=== PATIENT | male | born 1955 | race Caucasian/White ===

== ENCOUNTER 2023-04-26 12:01 | Inpatient (IN) | payer MEDICAID, SELFPAY ==
--- NOTE | ~2023-04-26 | CT_ITS ---
EXAMINATION: CT HEAD WITHOUT CONTRAST CLINICAL INFORMATION: Head injury COMPARISON: None available. TECHNIQUE: Contiguous axial imaging was performed from the skull base to vertex without intravenous administration of contrast. This CT examination was performed using dose optimization techniques as appropriate, variously including the following: *Automated exposure control *Adjustment of mA and/or kV according to patient size (this includes techniques or standardized protocols for targeted exams where dose is matched to indication/reason for exam; i.e. extremities or head) *Use of iterative reconstruction technique DLP: 865 mGy-cm FINDINGS: There is no evidence of an extra-axial collection. There is no evidence of intra-axial or extra-axial hemorrhage. The ventricles and extra-axial CSF spaces are prominent suggestive of generalized atrophy. There is nonspecific periventricular white matter disease. No mass, mass effect or infarct. No skull fracture. Paranasal sinuses are clear. CT/CT head/brain wo IV con IMPRESSION: No acute findings.
--- NOTE | ~2023-04-26 | XR_ITS ---
EXAMINATION: XR CHEST CLINICAL INFORMATION: Hypoxia COMPARISON: Previous day TECHNIQUE: Frontal view of the chest was obtained. FINDINGS: Diffuse bronchial thickening. Streaky opacity at left lung base increased from prior, but with improved aeration of the right midlung from prior. Favor subsegmental atelectasis. No pleural effusion or pneumothorax. Heart size and pulmonary vascularity within normal limits. No acute osseous abnormalities. XR/XR chest 1V IMPRESSION: * Diffuse bronchial thickening is seen bronchitis and/or asthma * Improved aeration of the right midlung. * Increased streaky opacity at left lung base could represent subsegmental atelectasis or infiltrate.
--- NOTE | ~2023-04-26 | CT_ITS ---
EXAMINATION: CT CERVICAL SPINE WITHOUT CONTRAST CLINICAL INFORMATION: Neck pain. Fall. COMPARISON: None available. TECHNIQUE: Axial images through the cervical spine without IV contrast. Sagittal and coronal reconstructions workstation This CT examination was performed using dose optimization techniques as appropriate, variously including the following: *Automated exposure control *Adjustment of mA and/or kV according to patient size (this includes techniques or standardized protocols for targeted exams where dose is matched to indication/reason for exam; i.e. extremities or head) *Use of iterative reconstruction technique DLP: 4 5 2 mGy-cm FINDINGS: Bone alignment is normal. No fracture or dislocation. Multilevel degenerative spondylosis and degenerative disc disease greatest at C5-C6 and C6-C7. There are degenerative changes of the dens articulation. Prevertebral soft tissues are normal. Scarring at the right lung apex. CT/CT cervical spine wo IV con IMPRESSION: Degenerative changes. No fracture or dislocation. Fleischner guidelines were followed.
--- NOTE | ~2023-04-26 | XR_ITS ---
EXAMINATION: XR CHEST CLINICAL INFORMATION: Hypoxia. COMPARISON: None available. TECHNIQUE: Frontal view of the chest was obtained. FINDINGS: The cardiomediastinal silhouette is grossly within normal limits. There is bilateral lower lung field increased markings. There is pleural thickening and/or scarring right midlung field. Lungs are otherwise clear. There are no significant pleural effusions. The bony structures and soft tissues are unremarkable. XR/XR chest 1V IMPRESSION: Bilateral lower lung field increased markings suspected to be chronic. Right midlung field pleural thickening and/or scarring. No other significant abnormality seen.
[2023-04-26 12:30] VITALS: BP 111/61; BP 114/72; PULSE 89; PULSE 93; RESP 16; TEMP 36.9; O2SAT 92; O2SAT 94; BMI 28.3
--- NOTE | 2023-04-26 12:51 | ECG_ITS ---
Test Reason : SYNCOPE Blood Pressure : / mmHG Vent. Rate : 088 BPM Atrial Rate : 088 BPM P-R Int : 162 ms QRS Dur : 140 ms QT Int : 382 ms P-R-T Axes : 025 -35 011 degrees QTc Int : 462 ms Normal sinus rhythm Left axis deviation Right bundle branch block Abnormal ECG No previous ECGs available Referred By: Daniele Genao Electronically Signed By:MAGAN HAYES MD
--- NOTE | 2023-04-26 12:52 | ED_ITS ---
HPI - Altered Mental Status General Chief Complaint: Altered Mental Status Stated Complaint: FALLS,AMS, FROM [facility] PER EMS Time Seen by Provider: 04/26/23 12:33 Source: patient Mode of arrival: EMS Limitations: altered mental status History of Present Illness HPI narrative: 67-year-old male history of diabetes, COPD, hypertension, schizoaffective disorder who presents emergency department for evaluation of unwitnessed fall. The patient is not a reliable informant. The following information was obtained from the transfer form: ? Increased confusion, 2 falls, altered mental status ?. Related Data Allergies Allergy/AdvReac Type Severity Reaction Status Date / Time No Known Allergies Allergy Verified 04/26/23 12:29 Review of Systems 2 Review of Systems: Yes Unobtainable due to mental status PMFSH Social History Social History Smoked in Last 30 Days: No Advance Directives: No Physical Exam ED Vital Signs: Vital Signs - 24 hr 04/26/23 12:30 04/26/23 14:08 Temperature 98.4 F 98.0 F Pulse Rate 89 86 Respiratory Rate 16 16 Blood Pressure 111/61 101/63 Pulse Oximetry 92 95 Oxygen Delivery Method Room Air Room Air BMI result Body Mass Index 28.3 Vital signs were normal Exam General: Awake, alert in no distress Head: Normocephalic, atraumatic EENT: PERRL, Lids normal, sclera normal, conjunctiva normal, nose normal , ears normal, throat without erythema or exudates Neck: Supple, no adenopathy, no trachea midline or C-spine tenderness Lung: breath sounds symmetric, no wheezing, rales or rhonchi Chest: symmetric movement, nontender Heart: regular rate and rhythm, normal S1, S2 no murmurs or rubs Abdomen: soft, non-tender, nondistended, normal bowel sounds Back: no vertebral tenderness, no CVAT Extremities: no deformities, moves all extremities symmetrically Skin: no rashes, no lesion, normal color and warmth Neuro: Awake, alert, oriented , normal speech, cranial nerves intact, moves all extremities symmetrically Psych: Pleasant, cooperative Medical Decision Making Medical Decision Making MDM Narrative: 67-year-old male history of diabetes, COPD, hypertension, schizoaffective disorder who presents emergency department for evaluation of fall x2, increased confusion above baseline. Vital signs were unremarkable. Physical examination was unremarkable. Following evaluation was ordered: CBC, CMP, CK, PT/INR, PTT, urinalysis, COVID- 19, influenza, RSV, troponin, lactic acid, blood cultures x2, urinalysis 16:57 My interpretation patient's laboratory evaluation is as follows: WBC elevated 16,200 with 82 neutrophils. Elevated BUN of 19.4. Elevated CK 3609. Troponin was below detectable limits. Urinalysis was positive for blood, nitrates and leukocyte esterase. Microscopic revealed greater than 20 RBCs, greater than 50 WBCs, 10-20 squamous cells, 1+ bacteria-this is not a clean-catch specimen however I am concerned the patient may have a UTI which may explain his symptoms. COVID-19, influenza and RSV were negative. CT scan of the head and cervical spine were unremarkable. Patient was treated with normal saline IV x1 L and lactated Ringer's IV x1 L Patient was ordered to get ceftriaxone 1 g IV for urinary tract infection Differential Diagnosis Differential Diagnoses: The differential diagnosis associated with the presentation includes 16:57 Differential diagnosis includes was not limited to skull fracture, intracranial bleed, stroke, urinary tract infection, electrolyte abnormality, rhabdomyolysis, anemia Admission/Observation Consideration of admission/observation: Escalation of care including admission/observation considered Consult Healthcare Provider Management of the patient was discussed with: Hospitalist Lab Data MDM Lab Attestation statement: I reviewed the patient's lab results. 04/26/23 13:46 04/26/23 13:46 Labs: Lab Results 04/26/23 04/26/23 Range/Units 13:46 14:43 WBC 16.2 H (4.8-10.8) X10*3/uL RBC 4.52 L (4.60-5.80) X10*6/uL Hgb 12.4 L (14.0-18.0) g/dl Hct 37.2 L (42.0-52.0) % MCV 82.3 (80.0-98.0) fL MCH 27.4 (27.0-33.0) pg MCHC 33.3 (31.0-36.0) g/dl RDW 16.2 H (11.0-16.0) % Plt Count 187 (160-400) X10*3/uL MPV 9.5 (9.4-12.4) fL Immature Gran % (Auto) 0.9 H (0.0-0.4) % Neut % (Auto) 82.4 H (45-73) % Lymph % (Auto) 6.2 L (20-40) % Chambers % (Auto) 10.2 (2-11) % Eos % (Auto) 0.1 (0-4) % Baso % (Auto) 0.2 (0-2) % Lymph # (Auto) 1.0 L (1.2-4.9) X10*3/uL Chambers # (Auto) 1.7 H (0.1-1.2) X10*3/uL Eos # (Auto) 0.0 (0.0-0.4) X10*3/uL Baso # (Auto) 0.0 (0.0-0.2) X10*3/uL Abs Immat Gran (auto) 0.15 H (0.00-0.03) X10*3/uL Absolute Neuts (auto) 13.3 H (2.0-8.3) x10*3/uL Absolute Nucleated RBC 0.000 (0.0-0.012) X10*3/uL Nucleated RBC % (auto) 0.0 (0.0-0.2) /100WBC Smear Tech's Comments VERIFIED PT 13.6 H (11.1-13.3) SEC INR 1.1 (0.9-1.1) APTT 27.6 (26.0-36.4) SEC Sodium 137 (135-145) mmol/L Potassium 3.8 (3.3-5.1) mmol/L Chloride 102 (96-108) mmol/L Carbon Dioxide 26 (22-29) mmol/L Anion Gap 13 (12-20) BUN 19 H (9-16) mg/dL Creatinine 1.08 (0.5-1.4) mg/dL Estim Creat Clear Calc 79.2 Estimated GFR > 60 Random Glucose 112 (60-115) mg/dL Calcium 8.7 (8.4-10.2) mg/dL Total Bilirubin 0.7 (0.0-1.0) mg/dL AST 59 H (5-37) U/L ALT 20 (0-40) U/L Alkaline Phosphatase 59 (39-117) U/L Total Creatine Kinase 3609 H (38-174) U/L Troponin I High Sens < 2.7 (<3.5-35.0) ng/L Total Protein 6.1 L (6.5-8.0) g/dL Albumin 3.4 L (3.5-5.0) g/dL Urine Color Dark Yellow Urine Appearance Cloudy Urine pH 5.5 (5.0-9.0) Ur Specific Wilkinson >= 1.030 H (1.005-1.025) Urine Protein 100 (2+) H (Neg-Trace) mg/dL Urine Glucose (UA) Negative (Negative) mg/dL Urine Ketones 15 (Negative) mg/dL Urine Blood Large (3+) H (Negative) Urine Nitrite Positive H (Negative) Ur Leukocyte Esterase Moderate (2+) H (Negative) Urine RBC >20 H (0-2) /HPF Urine WBC >50 H (0-5) /HPF Urine WBC Clumps Present Ur Squamous Epith Cells 11-20 (0-2) /HPF Urine Bacteria 1+ (None Seen) Hyaline Casts 3-5 (0-2) /LPF Influenza Type A (PCR) NEGATIVE (Negative) Influenza Type B (PCR) NEGATIVE (Negative) RSV RNA Qual (PCR) NEGATIVE (Negative) SARS-CoV-2 RNA (RT-PCR) NEGATIVE (Negative) Independent Interpretation I performed an independent interpretation of an: EKG Interpretation: My interpretation patient's 12 EKG done at 12:58 hours is as follows: Normal sinus rhythm rate of 88, normal FL interval, prolonged QRS duration of 140 milliseconds, normal QTC interval, right bundle-branch block, no ST segment elevation, no ST segment depression, no significant T-wave abnormalities Radiology Impression Discussion of test interpretation with radiology: I have reviewed the radiologist's reading. Radiologist Impression: CT head/brain wo IV con IMPRESSION: No acute findings. Dictated By: Mary Quach MD CT cervical spine wo IV con IMPRESSION: Degenerative changes. No fracture or dislocation. Fleischner guidelines were followed. Dictated By: Mary Quach MD External Record Review External record reviewed: Outpatient record Chronic Conditions Patient?s care impacted by: Diabetes Discharge Plan Discharge Clinical Impression: Multiple falls Rhabdomyolysis Qualifiers: Rhabdomyolysis type: traumatic Encounter type: initial encounter Qualified Code(s): T79.6XXA - Traumatic ischemia of muscle, initial encounter Urinary tract infection Qualifiers: Urinary tract infection type: site unspecified Hematuria presence: with hematuria Qualified Code(s): N39.0 - Urinary tract infection, site not specified Patient Disposition: Admitted As Inpatient
[2023-04-26 13:52] LABS: Basophils Percent Auto 0.2 % (0-2); Eosinophils Percent Auto 0.1 % (0-4); Hematocrit 37.2 % (42.0-52.0); Hemoglobin 12.4 g/dl (14.0-18.0); Imm Gran Abs Auto 0.15 X10*3/uL (0.00-0.03); Imm Gran Pct Auto 0.9 % (0.0-0.4); Lymphocytes Percent Auto 6.2 % (20-40); MANUAL DIFF FLAG SCAN; Mean Corpuscular HGB Conc 33.3 g/dl (31.0-36.0); Mean Corpuscular Hemoglobin 27.4 pg (27.0-33.0); Mean Corpuscular Volume 82.3 fL (80.0-98.0); Mean Platelet Volume 9.5 fL (9.4-12.4); Monocytes Absolute Auto 1.7 X10*3/uL (0.1-1.2); Monocytes Percent Auto 10.2 % (2-11); Neutrophils Absolute Auto 13.3 x10*3/uL (2.0-8.3); Neutrophils Percent Auto 82.4 % (45-73); Platelet Count 187 X10*3/uL (160-400); Red Blood Count 4.52 X10*6/uL (4.60-5.80); Red Cell Distribution Width 16.2 % (11.0-16.0); SCAN SMEAR FLAG 1; White Blood Count 16.2 X10*3/uL (4.8-10.8)
[2023-04-26 13:57] LABS: INTERNATIONAL NORM RATIO 1.1 (0.9-1.1); Prothrombin Time 13.6 SEC (11.1-13.3)
[2023-04-26 13:59] LABS: Partial Thromboplastin Time 27.6 SEC (26.0-36.4)
[2023-04-26 14:07] LABS: Alanine Aminotransferase 20 U/L (0-40); Albumin Level 3.4 g/dL (3.5-5.0); Alkaline Phosphatase 59 U/L (39-117); Anion Gap 13 (12-20); Aspartate Amino Transferase 59 U/L (5-37); Bilirubin Total 0.7 mg/dL (0.0-1.0); Blood Urea Nitrogen 19 mg/dL (9-16); Calcium 8.7 mg/dL (8.4-10.2); Carbon Dioxide 26 mmol/L (22-29); Chloride 102 mmol/L (96-108); Creatinine Clr Calc Pharmacy 79.2; Estimated Glomerular Filt Rate > 60; Glucose Random 112 mg/dL (60-115); Potassium 3.8 mmol/L (3.3-5.1); Sodium 137 mmol/L (135-145); Total Protein 6.1 g/dL (6.5-8.0)
[2023-04-26 14:08] VITALS: BP 101/63; PULSE 86; RESP 16; TEMP 36.7; O2SAT 95
[2023-04-26 14:15] LABS: Troponin-I High Sensitivity < 2.7 ng/L (<3.5-35.0)
[2023-04-26 14:22] LABS: SLIDE REVIEW VERIFIED
[2023-04-26 14:31] LABS: Influenza A PCR NEGATIVE (Negative); Influenza B PCR NEGATIVE (Negative); Resp Syncy Virus RNA Qual PCR NEGATIVE (Negative); SARS COV2 PCR INHOUSE NEGATIVE (Negative)
--- NOTE | 2023-04-26 14:49 | MHC.EDTECH ---
T/w asked Pt x2 if I could get him more comfortable/off EMS linen and situated into a hospital gown, but Pt refused at this time. RN and [facility] tech aware. Pt used urinal and urine specimen sent down to lab.
[2023-04-26 14:53] LABS: Appearance Urine Cloudy; Color Urine Dark Yellow; Glucose Urine UA Negative (Negative); Leukocyte Esterase Urine Moderate (2+) (Negative); Nitrite Urine Positive (Negative); PH 5.5 (5.0-9.0); Specific Gravity - Urine >= 1.030 (1.005-1.025); UMIC TRIGGER UACC YES; Urine Blood Large (3+) (Negative); Urine Ketones 15 mg/dL (Negative); Urine Protein 100 (2+) mg/dL (Neg-Trace)
[2023-04-26 15:07] LABS: Bacteria Urine 1+ (None Seen); RBC Urine >20 /HPF (0-2); UACC Culture Trigger YES; WBC Clumps Urine Present; WBC Urine >50 /HPF (0-5)
[2023-04-26] MEDS: Lactated Ringers 1,000 ML 999 ML IV (16:45)
[2023-04-26] MEDS: cefTRIAXone sodium 1 GM in 0.9 % Sodium Chloride 50 ML IV (17:21)
[2023-04-26 17:44] LABS: Lactic Acid 2.5 mmol/L (0.5-2.0)
--- NOTE | 2023-04-26 18:05 | P.HPHOSP_ITS ---
History of Present Illness Date of Service: 04/26/23 Chief Complaint: fall 67M PMH schizoaffective disorder, copd, DM, htn, presented from [facility] after fall. patient is poor historian and does not remember event, per EMS was transfered for increased confusion, fall times 2, and aleterd mental status. in ED, UA grossly positive, elevated cpk to 3000, trauma work up unremarkable. Review of Systems 2 Review of Systems: Yes all other systems are reviewed and are negative [facility] Social History Smoked in Last 30 Days: No Advance Directives: No Meds Allergies Allergy/AdvReac Type Severity Reaction Status Date / Time No Known Allergies Allergy Verified 04/26/23 12:29 Physical Exam 2 Vital Signs and Narrative: Vital Signs: Last Vital Signs Temp 98.0 F 04/26/23 14:08 Pulse 86 04/26/23 14:08 Resp 16 04/26/23 14:08 BP 101/63 04/26/23 14:08 Pulse Ox 95 04/26/23 14:08 O2 Del Method Room Air 04/26/23 14:08 BMI result Body Mass Index 28.3 General: AO X 1, no acute distress Resp: CTA bilateral, no accessory muscles used CVS: S1,S2,RRR GI: soft, non tender, non distended Neuro: motor grossly intact, alert Results Labs 04/26/23 13:46 04/26/23 13:46 Labs: Laboratory Results - last 24 hr 04/26/23 04/26/23 04/26/23 13:46 14:43 16:59 MCV 82.3 MCH 27.4 MCHC 33.3 RDW 16.2 H Plt Count 187 MPV 9.5 Immature Gran % (Auto) 0.9 H Neut % (Auto) 82.4 H Lymph % (Auto) 6.2 L [place] % (Auto) 10.2 Eos % (Auto) 0.1 Baso % (Auto) 0.2 Lymph # (Auto) 1.0 L [place] # (Auto) 1.7 H Eos # (Auto) 0.0 Baso # (Auto) 0.0 Abs Immat Gran (auto) 0.15 H Absolute Neuts (auto) 13.3 H Absolute Nucleated RBC 0.000 Nucleated RBC % (auto) 0.0 Smear Tech's Comments VERIFIED PT 13.6 H INR 1.1 APTT 27.6 Anion Gap 13 Estim Creat Clear Calc 79.2 Estimated GFR > 60 Random Glucose 112 Lactic Acid 2.5 H* Calcium 8.7 Total Bilirubin 0.7 AST 59 H ALT 20 Alkaline Phosphatase 59 Total Creatine Kinase 3609 H Total Protein 6.1 L Albumin 3.4 L Urine Color Dark Yellow Urine Appearance Cloudy Urine pH 5.5 Ur Specific Gilchrist >= 1.030 H Urine Protein 100 (2+) H Urine Glucose (UA) Negative Urine Ketones 15 Urine Blood Large (3+) H Urine Nitrite Positive H Ur Leukocyte Esterase Moderate (2+) H Urine RBC >20 H Urine WBC >50 H Urine WBC Clumps Present Ur Squamous Epith Cells 11-20 Urine Bacteria 1+ Hyaline Casts 3-5 Influenza Type A (PCR) NEGATIVE Influenza Type B (PCR) NEGATIVE RSV RNA Qual (PCR) NEGATIVE SARS-CoV-2 RNA (RT-PCR) NEGATIVE Imaging Radiologist's Impressions: Impressions Cervical Spine CT 04/26/23 13:34 IMPRESSION: Degenerative changes. No fracture or dislocation. Fleischner guidelines were followed. Head CT 04/26/23 13:34 IMPRESSION: No acute findings. Assessment and Plan (1) Urinary tract infection: Qualifiers: Hematuria presence: with hematuria Urinary tract infection type: site unspecified Qualified Code(s): N39.0 - Urinary tract infection, site not specified; R31.9 - Hematuria, unspecified Status: Acute Plan 67M PMH schizoaffective disorder, copd, DM, htn, presented from [facility] after fall, ams multiple falls, ams secondary to acute metabolic encephalopathy due to UTI rocephin, pt eval, follow up cultures mild rhabdomyolosis ivf, monitor cpk schizoaffective disorder, htn, copd patient not sent with medlist, awaiting fax from [facility] to complete [facility]rec copd stable mood currently stable bp stable DM insulin sliding scale, monitro pocs dvt prophylaxis - lovenox full code patient with significant elevation in cpk/rhabdo, will likely need atleast 2 midnights inpatient of aggressive iv hydration to treat. Quality Stroke Does the patient have a stroke diagnosis?: No VTE Prior VTE?: No VTE Risk Level:: Medical - moderate - high VTE Device Contraindication: Treatment Not Indicated VTE Drug Contraindication: N/A - Med Ordered
--- NOTE | 2023-04-26 18:42 | PC.NURSE ---
CALLED [facility] [place] AGAIN TO OBTAIN MED LIST, THEY WILL BE FAXING IT OVER.
[2023-04-26 19:10] LABS: Reflex Lactate? Lactic Acid Added
--- NOTE | 2023-04-26 19:14 | PHA.MEDREC ---
Pharmacy Consult ? Medication Reconciliation Pharmacy has completed the medication reconciliation. Received list from [facility]. Shruthi De Santiago, DedeD
[2023-04-26] MEDS: 0.9 % Sodium Chloride 1,000 ML 100 ML IVCONT (19:29)
[2023-04-26 19:43] LABS: ~Lactic Acid-LAB USE ONLY 1.3 mmol/L (0.5-2.0)
[2023-04-26 20:05] VITALS: BP 110/55; PULSE 90; RESP 20; TEMP 37.8; O2SAT 96
--- NOTE | 2023-04-26 20:06 | MHC.EDTECH ---
This tech assumed care of patient at 1900,hourly rounds and vitals completed, temp orally is 100.00 Arian RN aware BP is 110/55, Upon entry to room patient was trying to get OOB ,was able to redirect patient. Belonging list completed and copy placed in chart
--- NOTE | 2023-04-26 21:09 | MHC.EDTECH ---
Blood sugar taken and is 110 Arian RN aware
[2023-04-26 21:10] LABS: Glucose, Whole Blood 110 mg/dL (60-115)
[2023-04-26 22:22] VITALS: BP 96/57; PULSE 70; RESP 18; TEMP 36.8; O2SAT 97
[2023-04-26 22:26] VITALS: BP 98/59; PULSE 71; RESP 18; TEMP 36.8
--- NOTE | 2023-04-26 22:26 | MHC.EDTECH ---
Hour;y rpounds and vitals completed, patients BP is low 96/57 on the LT arm and 98/59 on the RT, Arian RN was made aware. Patient urinated 200MLS in urinal, Patient is being placed on bedpan at this time
--- NOTE | 2023-04-26 22:48 | MHC.EDTECH ---
Patient had a small amount of liquid tabor stool,patient was cleaned and repositioned in bed,rectal temp taken and is 98.3.
[2023-04-27] VITALS (10 sets, daily range): BP systolic 100–129; BP diastolic 51–70; PULSE 80–98; RESP 16–20; TEMP 36.4–37.9; O2SAT 93–96; BMI 28.6
[2023-04-27] MEDS: Acetaminophen 325 MG TABLET 650 MG PO (03:16)
--- NOTE | 2023-04-27 05:33 | PC.NURSE ---
0415 IVF delayed. previous fluids still infusing. pt resting comfortably with eyes closed, breathing even and unlabored. no apparent distress noted at this time. call baker w/in reach
[2023-04-27 05:55] LABS: Hematocrit 34.4 % (42.0-52.0); Hemoglobin 11.4 g/dl (14.0-18.0); Mean Corpuscular HGB Conc 33.1 g/dl (31.0-36.0); Mean Corpuscular Hemoglobin 27.1 pg (27.0-33.0); Mean Corpuscular Volume 81.7 fL (80.0-98.0); Mean Platelet Volume 9.5 fL (9.4-12.4); Platelet Count 171 X10*3/uL (160-400); Red Blood Count 4.21 X10*6/uL (4.60-5.80); Red Cell Distribution Width 16.4 % (11.0-16.0); White Blood Count 10.2 X10*3/uL (4.8-10.8)
[2023-04-27 06:12] LABS: Anion Gap 11 (12-20); Blood Urea Nitrogen 16 mg/dL (9-16); Calcium 7.8 mg/dL (8.4-10.2); Carbon Dioxide 24 mmol/L (22-29); Chloride 107 mmol/L (96-108); Creatinine Clr Calc Pharmacy 111.1; Estimated Glomerular Filt Rate > 60; Glucose Fasting 95 mg/dL (60-99); Potassium 3.4 mmol/L (3.3-5.1); Sodium 139 mmol/L (135-145)
[2023-04-27 07:24] LABS: Glucose, Whole Blood 93 mg/dL (60-115)
[2023-04-27] MEDS: Sucralfate 1 GM TABLET PO ×2 (08:17→18:15)
[2023-04-27] MEDS: metFORMIN HCl 1,000 MG TABLET 1000 MG PO ×2 (08:17→18:15)
[2023-04-27] MEDS: buPROPion HCl XL 300 MG TAB.ER.24H PO (08:17)
[2023-04-27] MEDS: cloZAPine 25 MG TABLET PO (08:17)
[2023-04-27] MEDS: Omeprazole 20 MG CAPSULE.DR PO (08:17)
[2023-04-27] MEDS: Enoxaparin Sodium 40 MG/0.4 ML SYRINGE SUBCUT (08:17)
--- NOTE | 2023-04-27 08:20 | PC.NURSE ---
Alert with confusion. When asked where he lives patient states he is from [facility] and there is only one place he is going. When asked where patient states [place]. ate well for breakfast. oob to use bedside commode x 1 loose stool noted
[2023-04-27] MEDS: 0.9 % Sodium Chloride 1,000 ML 100 ML IVCONT ×2 (08:23→20:47)
--- NOTE | 2023-04-27 08:59 | P.PNIM_ITS ---
Subjective Subjective Date of Service: 04/27/23 Interval History: no copmlaints Physical Exam 2 Vital Signs: Vital Signs: Last Vital Signs Temp 98 F 04/27/23 08:22 Pulse 92 04/27/23 08:13 Resp 18 04/27/23 08:22 BP 117/54 L 04/27/23 08:22 Pulse Ox 96 04/27/23 08:22 O2 Del Method Room Air 04/27/23 08:22 BMI result Body Mass Index 28.3 General: Alert, confusion, no acute distress Resp: CTA bilateral, no accessory muscles used CVS: S1,S2,RRR GI: soft, non tender, non distended Neuro: motor grossly intact, alert Objective Data Active Medications Acetaminophen (Acetaminophen 325 Mg Tablet) 650 mg PO Q4H PRN PRN Reason: Fever Last Admin: 04/27/23 03:16 Dose: 650 mg Documented By: JORGE Atorvastatin Calcium (Atorvastatin Calcium 80 Mg Tablet) 80 mg PO BEDTIME [facility] Bupropion HCl (Bupropion Hcl Xl 300 Mg Tab.Er.24h) 300 mg PO DAILY [facility] Last Admin: 04/27/23 08:17 Dose: 300 mg Documented By: SHAYLA Clozapine (Clozapine 25 Mg Tablet) 25 mg PO DAILY [facility] Last Admin: 04/27/23 08:17 Dose: 25 mg Documented By: SHAYLA Clozapine (Clozapine 25 Mg Tablet) 50 mg PO BEDTIME [facility] Clozapine (Clozapine 100 Mg Tablet) 200 mg PO BEDTIME [facility] Dextrose (Dextrose 50 % 25 Gm/50 Ml Syringe) 25 gm IVPUSH Q15M PRN; Protocol PRN Reason: per Hypoglycemia Standing Ord. Divalproex Sodium (Divalproex Sodium 500 Mg Tablet.Dr) 1,500 mg PO BEDTIME [facility] Enoxaparin Sodium (Enoxaparin Sodium 40 Mg/0.4 Ml Syringe) 40 mg SUBCUT Q24H [facility] Last Admin: 04/27/23 08:17 Dose: 40 mg Documented By: SHAYLA Escitalopram Oxalate (Escitalopram Oxalate 10 Mg Tablet) 10 mg PO BEDTIME [facility] Glucose (Glucose Gel 15 Gm Gel..Gram.) 15 gm PO Q15M PRN; Protocol PRN Reason: per Hypoglycemia Standing Ord. Ceftriaxone Sodium 1 gm/ (Sodium Chloride) 50 mls @ 100 mls/hr IV Q24H [facility] Sodium Chloride (Ns) 1,000 mls @ 100 mls/hr IVCONT .Q10H [facility] Last Admin: 04/27/23 08:23 Dose: 100 mls/hr Documented By: SHAYLA Insulin Human Lispro (Insulin Lispro 100 Unit/Ml 3 Ml Vial) 0 unit SUBCUT QIDACHS [facility]; Protocol Last Admin: 04/27/23 07:41 Dose: Not Given Documented By: SHAYLA Non-Admin Reason: No Insulin Coverage Metformin HCl (Metformin Hcl 1,000 Mg Tablet) 1,000 mg PO BID@0900,1700 [facility] Last Admin: 04/27/23 08:17 Dose: 1,000 mg Documented By: SHAYLA Omeprazole (Omeprazole 20 Mg Capsule.Dr) 20 mg PO DAILY@0630 [facility] Last Admin: 04/27/23 08:17 Dose: 20 mg Documented By: SHAYLA Polyethylene Glycol (Polyethylene Glycol 3350 17 Gm Powd.Pack) 17 gm PO DAILY PRN PRN Reason: Constipation Sodium Chloride (0.9 % Sodium Chloride Flush 3 Ml Syringe) 3 ml IVFLUSH QSHIFT [facility] Last Admin: 04/27/23 07:40 Dose: Not Given Documented By: SHAYLA Non-Admin Reason: IV Running Sucralfate (Sucralfate 1 Gm Tablet) 1 gm PO BID@0900,1700 [facility] Last Admin: 04/27/23 08:17 Dose: 1 gm Documented By: SHAYAL Labs 04/27/23 05:40 04/27/23 05:44 Labs: Laboratory Results - last 24 hr 04/26/23 04/26/23 04/26/23 13:46 14:43 16:59 MCV 82.3 MCH 27.4 MCHC 33.3 RDW 16.2 H Plt Count 187 MPV 9.5 Immature Gran % (Auto) 0.9 H Neut % (Auto) 82.4 H Lymph % (Auto) 6.2 L [place] % (Auto) 10.2 Eos % (Auto) 0.1 Baso % (Auto) 0.2 Lymph # (Auto) 1.0 L [place] # (Auto) 1.7 H Eos # (Auto) 0.0 Baso # (Auto) 0.0 Abs Immat Gran (auto) 0.15 H Absolute Neuts (auto) 13.3 H Absolute Nucleated RBC 0.000 Nucleated RBC % (auto) 0.0 Smear Tech's Comments VERIFIED PT 13.6 H INR 1.1 APTT 27.6 Anion Gap 13 Estim Creat Clear Calc 79.2 Estimated GFR > 60 POC Glucose Random Glucose 112 Fasting Glucose Lactic Acid 2.5 H* Lactic Acid F/U @ 2Hr Calcium 8.7 Total Bilirubin 0.7 AST 59 H ALT 20 Alkaline Phosphatase 59 Total Creatine Kinase 3609 H Total Protein 6.1 L Albumin 3.4 L Urine Color Dark Yellow Urine Appearance Cloudy Urine pH 5.5 Ur Specific [place] >= 1.030 H Urine Protein 100 (2+) H Urine Glucose (UA) Negative Urine Ketones 15 Urine Blood Large (3+) H Urine Nitrite Positive H Ur Leukocyte Esterase Moderate (2+) H Urine RBC >20 H Urine WBC >50 H Urine WBC Clumps Present Ur Squamous Epith Cells 11-20 Urine Bacteria 1+ Hyaline Casts 3-5 Influenza Type A (PCR) NEGATIVE Influenza Type B (PCR) NEGATIVE RSV RNA Qual (PCR) NEGATIVE SARS-CoV-2 RNA (RT-PCR) NEGATIVE 04/26/23 04/26/23 04/27/23 19:29 21:06 05:40 MCV 81.7 MCH 27.1 MCHC 33.1 RDW 16.4 H Plt Count 171 MPV 9.5 Immature Gran % (Auto) Neut % (Auto) Lymph % (Auto) [place] % (Auto) Eos % (Auto) Baso % (Auto) Lymph # (Auto) [place] # (Auto) Eos # (Auto) Baso # (Auto) Abs Immat Gran (auto) Absolute Neuts (auto) Absolute Nucleated RBC 0.000 Nucleated RBC % (auto) 0.0 Smear Tech's Comments PT INR APTT Anion Gap Estim Creat Clear Calc Estimated GFR POC Glucose 110 Random Glucose Fasting Glucose Lactic Acid Lactic Acid F/U @ 2Hr 1.3 Calcium Total Bilirubin AST ALT Alkaline Phosphatase Total Creatine Kinase Total Protein Albumin Urine Color Urine Appearance Urine pH Ur Specific [place] Urine Protein Urine Glucose (UA) Urine Ketones Urine Blood Urine Nitrite Ur Leukocyte Esterase Urine RBC Urine WBC Urine WBC Clumps Ur Squamous Epith Cells Urine Bacteria Hyaline Casts Influenza Type A (PCR) Influenza Type B (PCR) RSV RNA Qual (PCR) SARS-CoV-2 RNA (RT-PCR) 04/27/23 04/27/23 05:44 07:09 MCV MCH MCHC RDW Plt Count MPV Immature Gran % (Auto) Neut % (Auto) Lymph % (Auto) [place] % (Auto) Eos % (Auto) Baso % (Auto) Lymph # (Auto) [place] # (Auto) Eos # (Auto) Baso # (Auto) Abs Immat Gran (auto) Absolute Neuts (auto) Absolute Nucleated RBC Nucleated RBC % (auto) Smear Tech's Comments PT INR APTT Anion Gap 11 L Estim Creat Clear Calc 111.1 Estimated GFR > 60 POC Glucose 93 Random Glucose Fasting Glucose 95 Lactic Acid Lactic Acid F/U @ 2Hr Calcium 7.8 L D Total Bilirubin AST ALT Alkaline Phosphatase Total Creatine Kinase 1835 H Total Protein Albumin Urine Color Urine Appearance Urine pH Ur Specific [place] Urine Protein Urine Glucose (UA) Urine Ketones Urine Blood Urine Nitrite Ur Leukocyte Esterase Urine RBC Urine WBC Urine WBC Clumps Ur Squamous Epith Cells Urine Bacteria Hyaline Casts Influenza Type A (PCR) Influenza Type B (PCR) RSV RNA Qual (PCR) SARS-CoV-2 RNA (RT-PCR) Assessment and Plan (1) Urinary tract infection: Status: Acute Plan 67M PMH schizoaffective disorder, copd, DM, htn, [facility], ams multiple falls, ams secondary to acute metabolic encephalopathy due to UTI rocephin, pt appreciated - [facility], follow up cultures mild rhabdomyolosis some improvmeent, continue ivf, monitor cpk schizoaffective disorder clozapine, depakote, celexa htn not on meds, monitor copd stable DM insulin sliding scale hold metformin dvt prophylaxis - lovenox full code reason for continued hospitalization:ivf for rhabdo, awaiting cultures Quality Stroke Does the patient have a stroke diagnosis?: No VTE Prior VTE?: No VTE Risk Level:: Medical - moderate - high VTE Device Contraindication: Treatment Not Indicated VTE Drug Contraindication: N/A - Med Ordered
--- NOTE | 2023-04-27 09:23 | MHC.CM.PN ---
Goal is to return to LTC @ [facility]. CM has initiated and will follow for dc planning.
--- NOTE | 2023-04-27 09:24 | PC.NURSE ---
Patient now on avasure system for fall reduction.
[2023-04-27 12:02] LABS: Glucose, Whole Blood 99 mg/dL (60-115)
[2023-04-27 16:19] LABS: Glucose, Whole Blood 116 mg/dL (60-115)
[2023-04-27] MEDS: cefTRIAXone sodium 1 GM in 0.9 % Sodium Chloride 50 ML IV (18:15)
[2023-04-27 20:29] LABS: Glucose, Whole Blood 91 mg/dL (60-115)
[2023-04-27] MEDS: Divalproex Sodium 500 MG TABLET.DR 1500 MG PO (20:46)
[2023-04-27] MEDS: Atorvastatin Calcium 80 MG TABLET PO (20:46)
[2023-04-27] MEDS: cloZAPine 100 MG TABLET 200 MG PO (20:47)
[2023-04-27] MEDS: cloZAPine 25 MG TABLET 50 MG PO (20:47)
[2023-04-27] MEDS: Escitalopram Oxalate 10 MG TABLET PO (20:47)
[2023-04-28 04:00] VITALS: BP 115/59; PULSE 90; TEMP 36.5; O2SAT 92
--- NOTE | 2023-04-28 04:35 | PC.NURSE ---
At 0415 pt's O2 sat was at 85% on RA, unable to get it any higher with repositioning and having pt cough and deep breath. O2 added via NC and pt requiring 4L to get sat to 92%. [place] text to Dr. Wilkins. aware.
[2023-04-28] MEDS: 0.9 % Sodium Chloride 1,000 ML 100 ML IVCONT (05:43)
[2023-04-28] MEDS: Omeprazole 20 MG CAPSULE.DR PO (05:43)
[2023-04-28 06:53] VITALS: BP 108/66; PULSE 80; RESP 16; TEMP 36.4; O2SAT 92
--- NOTE | 2023-04-28 07:00 | CA_ITS ---
Transthoracic Echocardiogram Patient (Last, First, Middle): Sonny Lanier, Gender: Male Date of : 1955 Age: 67 Procedure Date: 04/28/2023 Procedure Type: Transthoracic Echocardiogram Location: S3E Height: 182.88 cm Weight: 95.26 kg BSA: 2.18 m2 Heart Rate: 82 bpm BP: 108 / 66 mmHg Collet Driller: HEATHER/AJ Referring MD: Cesar Kate MD Beer Maker: Kelby Garcia MD Symptoms: ?chf Study Quality: Adequate ECG Rhythm: Sinus Conclusions: - 1. Normal LV ejection fraction 65-70% with grade 1 diastolic dysfunction 2. Normal cardiac valvular Dopplers 3. No gross pericardial effusion Findings Left Ventricle Normal left ventricular size, thickness, and systolic function. The visually estimated ejection fraction is between 65-70%. Spectral Doppler is indicative of an impaired relaxation filling pattern. Normal left ventricular filling pressures. E/E prime ratio is <8, consistent with normal filling pressures. Evidence suggests grade I (mild) diastolic dysfunction. Right Ventricle Normal right ventricular cavity size and systolic function. Atria Both atria are normal in size. Interatrial shunt cannot be excluded. Aortic Valve The aortic valve structure and function is likely normal. There is no aortic valve stenosis. There is no aortic valve regurgitation. Mitral Valve There is mild anterior and posterior mitral leaflet thickening. There is trace mitral valve regurgitation. There is no mitral valve stenosis. Pulmonic Valve The pulmonic valve was not well visualized. Tricuspid Valve Likely normal tricuspid valve structure and function. Tricuspid regurgitation envelope is inadequate for calculation of right ventricular systolic pressure. Normal right atrial pressure. Great Vessels All visible segments of the aorta are normal in size. The pulmonary artery was not well visualized. Venous The inferior vena cava is normal in size and collapses greater than 50% with inspiration. Pericardium/Pleural There is no evidence of pericardial effusion. Prior Study Comparison No prior study available for comparison. Measurements 2D Linear Measurements IVSd: 0.90 0.6-0.9/0.6-1.0 cm LVIDd: 5.28 3.9-5.3/4.2-5.9 cm LVIDd Index: 2.42 2.4-3.2/2.2-3.1 cm/m2 LVIDs: 3.50 2.0-3.6 cm LVPWd: 0.68 0.7-1.1 cm LA Diam: 3.50 2.7-3.8/3.0-4.0 cm LAIDs Index: 1.61 1.5-2.3 cm/m2 LV Mass: 181.48 67-162/88-224 g LV Mass Index: 83.25 43-95/49-115 g/m2 LVOT Diam: 2.40 3.0+(-)1.3 cm 2D Systolic Function EF 4C: 70.40 >55% EF 2C: 68.10 >55% EF BiP: 69.50 >55% Mitral Valve MV Pk E: 0.64 MV PK A: 0.71 MV Decel Time: 199.00 E/A: 0.90 E'Lateral: 13.20 E'Medial: 7.62 E/E' Med: 8.40 E/E' Lat: 4.90 PHT: 58.00 MVA PHT: 3.79 Decel [place]: 3.24 Aortic Valve AoV Pk David: 1.14 AoV Mn David: 0.82 AoV VTI: 0.22 AoV Pk Grad: 5.00 Aov Mn Grad: 3.00 JASON Cont.VTI: 3.35 LVOT LVOT Pk David: 0.80 LVOT Mn David: 0.54 LVOT VTI: 0.16 LVOT Pk Grad: 3.00 LVOT Mn Grad: 1.00 LVOT Diam: 2.40 LVOT Area: 4.52 Diastolic Function MV Pk E: 0.64 MV Pk A: 0.71 E/A: 0.90 E'Medial: 7.62 E/E' Med: 8.40 E' Laterial: 13.20 E/E' Lat: 4.90 Right Ventricle TAPSE (mm): 21.30 TVS' David: 11.60 Tricuspid Valve RA Press: 3.00 Great Vessels Aorta Sinus of Valsalva: 3.80 2.0-3.5 cm Ao Asc: 3.40 2.1-3.4 cm Pulmonary Veins Pulm Vein S/D 0.80 Pulmonary Valve PV Pk David: 0.80 Peak PV Grad: 3.00 Updated in Other Vendor System with Status of Final Kelby Garcia MD electronically signed on 04/28/2023 12:31:49 PM with status of Final
[2023-04-28 07:15] LABS: Hematocrit 36.7 % (42.0-52.0); Hemoglobin 11.7 g/dl (14.0-18.0); Mean Corpuscular HGB Conc 31.9 g/dl (31.0-36.0); Mean Corpuscular Hemoglobin 26.8 pg (27.0-33.0); Mean Corpuscular Volume 84.2 fL (80.0-98.0); Mean Platelet Volume 9.3 fL (9.4-12.4); Platelet Count 209 X10*3/uL (160-400); Red Blood Count 4.36 X10*6/uL (4.60-5.80); Red Cell Distribution Width 16.3 % (11.0-16.0); White Blood Count 6.5 X10*3/uL (4.8-10.8)
[2023-04-28 07:23] LABS: Glucose, Whole Blood 102 mg/dL (60-115)
[2023-04-28 07:30] LABS: Anion Gap 11 (12-20); Blood Urea Nitrogen 10 mg/dL (9-16); Calcium 7.5 mg/dL (8.4-10.2); Carbon Dioxide 26 mmol/L (22-29); Chloride 107 mmol/L (96-108); Creatinine Clr Calc Pharmacy 110.1; Estimated Glomerular Filt Rate > 60; Glucose Fasting 98 mg/dL (60-99); Sodium 141 mmol/L (135-145)
--- NOTE | 2023-04-28 08:52 | P.PNIM_ITS ---
Subjective Subjective Date of Service: 04/28/23 Interval History: became hypoxic early AM, 92% on 4L, denies sob Physical Exam 2 Vital Signs: Vital Signs: Last Vital Signs Temp 97.5 F 04/28/23 06:53 Pulse 80 04/28/23 06:53 Resp 16 04/28/23 06:53 BP 108/66 04/28/23 06:53 Pulse Ox 92 04/28/23 06:53 O2 Del Method Nasal Cannula 04/28/23 06:53 O2 Flow Rate 4 04/28/23 06:53 BMI result Body Mass Index 28.6 General: AO X 3, no acute distress Resp: crackles at bases bilateral, no accessory muscles used CVS: S1,S2,RRR GI: soft, non tender, non distended Neuro: motor grossly intact, alert Objective Data Active Medications Acetaminophen (Acetaminophen 325 Mg Tablet) 650 mg PO Q4H PRN PRN Reason: Fever Last Admin: 04/27/23 03:16 Dose: 650 mg Documented By: JORGE Atorvastatin Calcium (Atorvastatin Calcium 80 Mg Tablet) 80 mg PO BEDTIME [facility] Last Admin: 04/27/23 20:46 Dose: 80 mg Documented By: ESTELA Bupropion HCl (Bupropion Hcl Xl 300 Mg Tab.Er.24h) 300 mg PO DAILY [facility] Last Admin: 04/27/23 08:17 Dose: 300 mg Documented By: SHAYLA Clozapine (Clozapine 25 Mg Tablet) 25 mg PO DAILY [facility] Last Admin: 04/27/23 08:17 Dose: 25 mg Documented By: SHAYLA Clozapine (Clozapine 25 Mg Tablet) 50 mg PO BEDTIME [facility] Last Admin: 04/27/23 20:47 Dose: 50 mg Documented By: ESTELA Clozapine (Clozapine 100 Mg Tablet) 200 mg PO BEDTIME [facility] Last Admin: 04/27/23 20:47 Dose: 200 mg Documented By: ESTELA Dextrose (Dextrose 50 % 25 Gm/50 Ml Syringe) 25 gm IVPUSH Q15M PRN; Protocol PRN Reason: per Hypoglycemia Standing Ord. Divalproex Sodium (Divalproex Sodium 500 Mg Tablet.) 1,500 mg PO BEDTIME [facility] Last Admin: 04/27/23 20:46 Dose: 1,500 mg Documented By: ESTELA Enoxaparin Sodium (Enoxaparin Sodium 40 Mg/0.4 Ml Syringe) 40 mg SUBCUT Q24H [facility] Last Admin: 04/27/23 08:17 Dose: 40 mg Documented By: SHAYLA Escitalopram Oxalate (Escitalopram Oxalate 10 Mg Tablet) 10 mg PO BEDTIME [facility] Last Admin: 04/27/23 20:47 Dose: 10 mg Documented By: ESTELA Furosemide (Furosemide 40 Mg/4 Ml Vial) 40 mg IVPUSH ONCE ONE; Protocol Stop: 04/28/23 08:52 Glucose (Glucose Gel 15 Gm Gel..Gram.) 15 gm PO Q15M PRN; Protocol PRN Reason: per Hypoglycemia Standing Ord. Ceftriaxone Sodium 1 gm/ (Sodium Chloride) 50 mls @ 100 mls/hr IV Q24H [facility] Last Infusion: 04/27/23 18:45 Dose: Infused Documented By: ESTELA Insulin Human Lispro (Insulin Lispro 100 Unit/Ml 3 Ml Vial) 0 unit SUBCUT QIDACHS [facility]; Protocol Last Admin: 04/28/23 07:38 Dose: Not Given Documented By: HARVINDER Non-Admin Reason: No Insulin Coverage Metformin HCl (Metformin Hcl 1,000 Mg Tablet) 1,000 mg PO BID@0900,1700 [facility] Last Admin: 04/27/23 18:15 Dose: 1,000 mg Documented By: DIONICIO Omeprazole (Omeprazole 20 Mg Capsule.) 20 mg PO DAILY@0630 [facility] Last Admin: 04/28/23 05:43 Dose: 20 mg Documented By: ESTELA Polyethylene Glycol (Polyethylene Glycol 3350 17 Gm Powd.Pack) 17 gm PO DAILY PRN PRN Reason: Constipation Sodium Chloride (0.9 % Sodium Chloride Flush 3 Ml Syringe) 3 ml IVFLUSH QSHIFT [facility] Last Admin: 04/27/23 20:47 Dose: Not Given Documented By: ESTELA Non-Admin Reason: IV Running Sucralfate (Sucralfate 1 Gm Tablet) 1 gm PO BID@0900,1700 [facility] Last Admin: 04/27/23 18:15 Dose: 1 gm Documented By: DIONICIO Labs 04/28/23 06:53 04/28/23 06:53 Labs: Laboratory Results - last 24 hr 04/27/23 04/27/23 04/27/23 11:57 16:08 20:15 MCV MCH MCHC RDW Plt Count MPV Absolute Nucleated RBC Nucleated RBC % (auto) Anion Gap Estim Creat Clear Calc Estimated GFR POC Glucose 99 116 H 91 Fasting Glucose Calcium Total Creatine Kinase 04/28/23 04/28/23 06:53 07:18 MCV 84.2 MCH 26.8 L MCHC 31.9 RDW 16.3 H Plt Count 209 MPV 9.3 L Absolute Nucleated RBC 0.000 Nucleated RBC % (auto) 0.0 Anion Gap 11 L Estim Creat Clear Calc 110.1 Estimated GFR > 60 POC Glucose 102 Fasting Glucose 98 Calcium 7.5 L Total Creatine Kinase 972 H Microbiology Microbiology Results: Microbiology 04/26/23 Unknown Urine Culture - Final Urine clean catch - Urine overton top Escherichia coli 04/26/23 16:59 Blood Culture - Preliminary Blood - Venous No growth after 24 hours. 04/26/23 16:59 Blood Culture - Preliminary Blood - Venous No growth after 24 hours. Assessment and Plan (1) Urinary tract infection: Status: Acute Plan 67M PMH schizoaffective disorder, copd, DM, htn, [facility], ams multiple falls, ams secondary to acute metabolic encephalopathy due to UTI urine culture - rex olson pt appreciated - [facility] acute hypoxic respiratory failure ?acute unspecified chf, vs aspriation pneumnitis stop ivf, check echo, empiric dose of iv lasix, wean o2 as tolerated mild rhabdomyolosis resolved schizoaffective disorder clozapine, depakote, celexa htn not on meds, monitor copd stable DM insulin sliding scale hold metformin dvt prophylaxis - lovenox full code reason for continued hospitalization:hypoxia Quality Stroke Does the patient have a stroke diagnosis?: No VTE Prior VTE?: No VTE Risk Level:: Medical - moderate - high VTE Device Contraindication: Treatment Not Indicated VTE Drug Contraindication: N/A - Med Ordered
--- NOTE | 2023-04-28 10:19 | MHC.CM.PN ---
Addendum entered by Katelin Bear RN 04/28/23 15:57: Have not received guardianship documentation from facility. Called facility with additional request to fax documentation. Original Note: EMR reviewed. Per MD rounds patient is not medically cleared for DC. Plan remains return to [facility] via BLS, possibly over the weekend. Per face sheet from facility patient has a guardian, Irrigation Supervisor Rosendo Funez. Documentation requested. CM will continue to follow.
[2023-04-28] MEDS: Potassium Chloride ER 20 MEQ TAB.ER.PRT 40 MEQ PO (10:29)
[2023-04-28] MEDS: buPROPion HCl XL 300 MG TAB.ER.24H PO (10:30)
[2023-04-28] MEDS: Sucralfate 1 GM TABLET PO ×2 (10:30→17:22)
[2023-04-28] MEDS: Enoxaparin Sodium 40 MG/0.4 ML SYRINGE SUBCUT (10:30)
[2023-04-28] MEDS: cloZAPine 25 MG TABLET PO (10:30)
[2023-04-28] MEDS: Furosemide 40 MG/4 ML VIAL IVPUSH (10:30)
[2023-04-28] MEDS: metFORMIN HCl 1,000 MG TABLET 1000 MG PO ×2 (10:30→17:22)
[2023-04-28 11:15] LABS: Glucose, Whole Blood 105 mg/dL (60-115)
[2023-04-28 15:07] VITALS: BP 104/59; PULSE 87; RESP 18; TEMP 37.1; O2SAT 94
[2023-04-28 16:14] LABS: Glucose, Whole Blood 103 mg/dL (60-115)
[2023-04-28] MEDS: cefTRIAXone sodium 1 GM in 0.9 % Sodium Chloride 50 ML IV (17:22)
[2023-04-28] MEDS: 0.9 % Sodium Chloride Flush 3 ML SYRINGE IVFLUSH ×2 (17:22→20:37)
[2023-04-28 19:06] VITALS: BP 100/54; PULSE 90; RESP 18; TEMP 36.7; O2SAT 92
[2023-04-28 20:03] LABS: Glucose, Whole Blood 151 mg/dL (60-115)
[2023-04-28] MEDS: Escitalopram Oxalate 10 MG TABLET PO (20:36)
[2023-04-28] MEDS: cloZAPine 25 MG TABLET 50 MG PO (20:36)
[2023-04-28] MEDS: cloZAPine 100 MG TABLET 200 MG PO (20:37)
[2023-04-28] MEDS: Divalproex Sodium 500 MG TABLET.DR 1500 MG PO (20:37)
[2023-04-28] MEDS: Atorvastatin Calcium 80 MG TABLET PO (20:37)
[2023-04-29 03:35] VITALS: BP 106/59; PULSE 75; RESP 18; TEMP 36.3; O2SAT 92
--- NOTE | 2023-04-29 06:01 | PM.EVENT ---
Event Note Date of Service: 04/29/23 Event Note: Nurse reported increasing oxygen requirements overnight. Upon examination, patient mentating well and denies dyspnea or chest pain. Vital signs within normal limits. Crackles heard bilaterally. Will obtain chest x-ray and ABG. Time Spent With Patient Time: Total time managing care of this patient today ____ minutes.
[2023-04-29 06:14] LABS: Hematocrit 35.1 % (42.0-52.0); Hemoglobin 11.8 g/dl (14.0-18.0); Mean Corpuscular HGB Conc 33.6 g/dl (31.0-36.0); Mean Corpuscular Hemoglobin 28.5 pg (27.0-33.0); Mean Corpuscular Volume 84.8 fL (80.0-98.0); Mean Platelet Volume 9.4 fL (9.4-12.4); Platelet Count 231 X10*3/uL (160-400); Red Blood Count 4.14 X10*6/uL (4.60-5.80); Red Cell Distribution Width 16.5 % (11.0-16.0); White Blood Count 6.1 X10*3/uL (4.8-10.8)
[2023-04-29 06:15] VITALS: O2SAT 98
[2023-04-29 06:23] LABS: ABG Base Excess 2.8 mmol/L; ABG HCO3 26 mmol/L (22-26); ABG pCO2 36 mmHg (32-45); ABG pH 7.46 (7.35-7.45); ABG pO2 120 mmHg (83-108)
[2023-04-29 06:25] LABS: ABG Refer to POC result
[2023-04-29 06:29] LABS: Anion Gap 12 (12-20); Blood Urea Nitrogen 11 mg/dL (9-16); Calcium 7.8 mg/dL (8.4-10.2); Carbon Dioxide 26 mmol/L (22-29); Chloride 106 mmol/L (96-108); Creatinine Clr Calc Pharmacy 124.5; Estimated Glomerular Filt Rate > 60; Glucose Fasting 97 mg/dL (60-99); Potassium 3.4 mmol/L (3.3-5.1); Sodium 141 mmol/L (135-145)
--- NOTE | 2023-04-29 06:35 | PC.NURSE ---
0550 pt diaphoretic, congested cough noted 02 sats lower 80's on 4L increased to5L SATS IN THE UPPER 80'S. notified and in to see pt, respiratory in to see pt and Aubrie rubio in to see pt .Pt placed on 100% nonrebreather sats up to 98%.ABG's and CXR ordered.morphine 2mg IV ordered.awaiting results of CXR.pt placed on bone at 7L sats 92%.
[2023-04-29 06:39] LABS: B Type Natriuretic Peptide 41 pg/mL (<100)
[2023-04-29] MEDS: Morphine Sulfate 2 MG/ML CARTRIDGE IVPUSH (06:50)
[2023-04-29 07:54] LABS: Glucose, Whole Blood 100 mg/dL (60-115)
[2023-04-29 08:00] VITALS: BP 113/55; PULSE 84; RESP 18; TEMP 36.1; O2SAT 93
--- NOTE | 2023-04-29 09:17 | P.PNIM_ITS ---
Subjective Subjective Date of Service: 04/29/23 Interval History: worsening hypoxia, no sob Physical Exam 2 Vital Signs: Vital Signs: Last Vital Signs Temp 96.9 F 04/29/23 08:00 Pulse 84 04/29/23 08:00 Resp 18 04/29/23 08:00 BP 113/55 L 04/29/23 08:00 Pulse Ox 93 04/29/23 08:00 O2 Del Method Nasal Cannula 04/29/23 08:00 O2 Flow Rate 7 04/29/23 08:00 BMI result Body Mass Index 28.6 General: AO X 3, no acute distress Resp: crackles at bases bilateral, no accessory muscles used CVS: S1,S2,RRR GI: soft, non tender, non distended Neuro: motor grossly intact, alert Objective Data Active Medications Acetaminophen (Acetaminophen 325 Mg Tablet) 650 mg PO Q4H PRN PRN Reason: Fever Last Admin: 04/27/23 03:16 Dose: 650 mg Documented By: JORGE Albuterol/Ipratropium (Albuterol/Iprat 2.5/0.5mg 3 Ml Ampul.Neb) 3 ml INHALE RQ4H WHILE AWAKE PRN PRN Reason: Sob Atorvastatin Calcium (Atorvastatin Calcium 80 Mg Tablet) 80 mg PO BEDTIME [facility] Last Admin: 04/28/23 20:37 Dose: 80 mg Documented By: ROSANGELA Bupropion HCl (Bupropion Hcl Xl 300 Mg Tab.Er.24h) 300 mg PO DAILY [facility] Last Admin: 04/28/23 10:30 Dose: 300 mg Documented By: BRODonna Clozapine (Clozapine 25 Mg Tablet) 25 mg PO DAILY [facility] Last Admin: 04/28/23 10:30 Dose: 25 mg Documented By: DOBROB Clozapine (Clozapine 25 Mg Tablet) 50 mg PO BEDTIME [facility] Last Admin: 04/28/23 20:36 Dose: 50 mg Documented By: ROSANGELA Clozapine (Clozapine 100 Mg Tablet) 200 mg PO BEDTIME [facility] Last Admin: 04/28/23 20:37 Dose: 200 mg Documented By: ROSANGELA Dextrose (Dextrose 50 % 25 Gm/50 Ml Syringe) 25 gm IVPUSH Q15M PRN; Protocol PRN Reason: per Hypoglycemia Standing Ord. Divalproex Sodium (Divalproex Sodium 500 Mg Tablet.Dr) 1,500 mg PO BEDTIME [facility] Last Admin: 04/28/23 20:37 Dose: 1,500 mg Documented By: ROSANGELA Doxycycline Monohydrate (Doxycycline Monohydrate 100 Mg Capsule) 100 mg PO Q12H [facility] Enoxaparin Sodium (Enoxaparin Sodium 40 Mg/0.4 Ml Syringe) 40 mg SUBCUT Q24H [facility] Last Admin: 04/28/23 10:30 Dose: 40 mg Documented By: DOBROB Escitalopram Oxalate (Escitalopram Oxalate 10 Mg Tablet) 10 mg PO BEDTIME [facility] Last Admin: 04/28/23 20:36 Dose: 10 mg Documented By: ROSANGELA Glucose (Glucose Gel 15 Gm Gel..Gram.) 15 gm PO Q15M PRN; Protocol PRN Reason: per Hypoglycemia Standing Ord. Ceftriaxone Sodium 1 gm/ (Sodium Chloride) 50 mls @ 100 mls/hr IV Q24H [facility] Last Infusion: 04/28/23 18:00 Dose: Infused Documented By: KACEY Insulin Human Lispro (Insulin Lispro 100 Unit/Ml 3 Ml Vial) 0 unit SUBCUT QIDACHS [facility]; Protocol Last Admin: 04/29/23 07:56 Dose: Not Given Documented By: JAMARCUS Non-Admin Reason: No Insulin Coverage Metformin HCl (Metformin Hcl 1,000 Mg Tablet) 1,000 mg PO BID@0900,1700 [facility] Last Admin: 04/28/23 17:22 Dose: 1,000 mg Documented By: KACEY Omeprazole (Omeprazole 20 Mg Capsule.) 20 mg PO DAILY@0630 [facility] Last Admin: 04/29/23 06:15 Dose: Not Given Documented By: ROSANGELA Non-Admin Reason: respiratory distress Polyethylene Glycol (Polyethylene Glycol 3350 17 Gm Powd.Pack) 17 gm PO DAILY PRN PRN Reason: Constipation Prednisone (Prednisone 20 Mg Tablet) 40 mg PO DAILY [facility] Sodium Chloride (0.9 % Sodium Chloride Flush 3 Ml Syringe) 3 ml IVFLUSH QSHIFT [facility] Last Admin: 04/28/23 20:37 Dose: 3 ml Documented By: ROSANGELA Sucralfate (Sucralfate 1 Gm Tablet) 1 gm PO BID@0900,1700 [facility] Last Admin: 04/28/23 17:22 Dose: 1 gm Documented By: KACEY Labs 04/29/23 05:29 04/29/23 05:29 Labs: Laboratory Results - last 24 hr 04/28/23 04/28/23 04/28/23 11:11 16:09 19:47 MCV MCH MCHC RDW Plt Count MPV Absolute Nucleated RBC Nucleated RBC % (auto) O2 Saturation ABG pH at Pt Temp ABG pCO2 at Pt Temp ABG pO2 at Pt Temp ABG HCO3 ABG Base Excess (Actual) Anion Gap Estim Creat Clear Calc Estimated GFR POC Glucose 105 103 151 H Fasting Glucose Calcium B-Natriuretic Peptide 04/29/23 04/29/23 04/29/23 05:29 06:16 07:20 MCV 84.8 MCH 28.5 MCHC 33.6 RDW 16.5 H Plt Count 231 MPV 9.4 Absolute Nucleated RBC 0.000 Nucleated RBC % (auto) 0.0 O2 Saturation 99.0 ABG pH at Pt Temp 7.46 H ABG pCO2 at Pt Temp 36 ABG pO2 at Pt Temp 120 H ABG HCO3 26 ABG Base Excess (Actual) 2.8 Anion Gap 12 Estim Creat Clear Calc 124.5 Estimated GFR > 60 POC Glucose 100 Fasting Glucose 97 Calcium 7.8 L B-Natriuretic Peptide 41 Microbiology Microbiology Results: Microbiology 04/26/23 16:59 Blood Culture - Preliminary Blood - Venous No growth after 48 hours. 04/26/23 16:59 Blood Culture - Preliminary Blood - Venous No growth after 48 hours. 04/26/23 Unknown Urine Culture - Final Urine clean catch - Urine overton top Escherichia coli Assessment and Plan (1) Urinary tract infection: Status: Acute Plan 67M PMH schizoaffective disorder, copd, DM, htn, [facility], ams multiple falls, ams secondary to acute metabolic encephalopathy due to UTI urine culture - rex olson pt appreciated - [facility] acute hypoxic respiratory failure due to acute bronchitis, poor mucus clearance prendiosne, nebs prn, flutter valve, continue antibiotics wean o2 as tolerated mild rhabdomyolosis resolved schizoaffective disorder clozapine, depakote, celexa htn not on meds, monitor copd stable DM insulin sliding scale hold metformin dvt prophylaxis - lovenox full code reason for continued hospitalization:hypoxia Quality Stroke Does the patient have a stroke diagnosis?: No VTE Prior VTE?: No VTE Risk Level:: Medical - moderate - high VTE Device Contraindication: Treatment Not Indicated VTE Drug Contraindication: N/A - Med Ordered
[2023-04-29] MEDS: metFORMIN HCl 1,000 MG TABLET 1000 MG PO ×2 (09:38→17:38)
[2023-04-29] MEDS: Doxycycline Monohydrate 100 MG CAPSULE PO ×2 (09:38→20:34)
[2023-04-29] MEDS: Enoxaparin Sodium 40 MG/0.4 ML SYRINGE SUBCUT (09:38)
[2023-04-29] MEDS: Sucralfate 1 GM TABLET PO ×2 (09:38→17:38)
[2023-04-29] MEDS: predniSONE 20 MG TABLET 40 MG PO (09:38)
[2023-04-29] MEDS: buPROPion HCl XL 300 MG TAB.ER.24H PO (09:38)
[2023-04-29] MEDS: cloZAPine 25 MG TABLET PO (09:38)
[2023-04-29] MEDS: 0.9 % Sodium Chloride Flush 3 ML SYRINGE IVFLUSH ×3 (09:39→20:35)
[2023-04-29 12:09] LABS: Glucose, Whole Blood 116 mg/dL (60-115)
[2023-04-29 15:35] VITALS: BP 119/74; PULSE 84; RESP 18; TEMP 36.1; O2SAT 92
--- NOTE | 2023-04-29 15:54 | PC.RT ---
Pt awake and coop. RT in to introduce and educate pt on use of aerobika/pep therapy. Pt found on RA with spo2 of 91%, RN aware. Pt able to use aerobica with very good effort noted. RT request RN institute spo2 monitoring to track pt spo2 trends as he required high amounts of supplemental o2 last night.
[2023-04-29 16:31] LABS: Glucose, Whole Blood 133 mg/dL (60-115)
[2023-04-29] MEDS: cefTRIAXone sodium 1 GM in 0.9 % Sodium Chloride 50 ML IV (17:38)
[2023-04-29 19:29] VITALS: BP 128/61; PULSE 81; RESP 18; TEMP 36; O2SAT 91
[2023-04-29 20:09] LABS: Glucose, Whole Blood 153 mg/dL (60-115)
[2023-04-29] MEDS: Escitalopram Oxalate 10 MG TABLET PO (20:34)
[2023-04-29] MEDS: cloZAPine 25 MG TABLET 50 MG PO (20:34)
[2023-04-29] MEDS: cloZAPine 100 MG TABLET 200 MG PO (20:34)
[2023-04-29] MEDS: Divalproex Sodium 500 MG TABLET.DR 1500 MG PO (20:34)
[2023-04-29] MEDS: Insulin Lispro 100 UNIT/ML 3 ML VIAL SUBCUT (20:34)
[2023-04-29] MEDS: Atorvastatin Calcium 80 MG TABLET PO (20:34)
[2023-04-30 03:07] VITALS: BP 126/63; PULSE 77; RESP 18; TEMP 36.2; O2SAT 92
[2023-04-30] MEDS: Omeprazole 20 MG CAPSULE.DR PO (05:55)
[2023-04-30 06:23] LABS: Hematocrit 35.8 % (42.0-52.0); Hemoglobin 11.9 g/dl (14.0-18.0); Mean Corpuscular HGB Conc 33.2 g/dl (31.0-36.0); Mean Corpuscular Hemoglobin 27.4 pg (27.0-33.0); Mean Corpuscular Volume 82.5 fL (80.0-98.0); Mean Platelet Volume 9.4 fL (9.4-12.4); Platelet Count 256 X10*3/uL (160-400); Red Blood Count 4.34 X10*6/uL (4.60-5.80); Red Cell Distribution Width 15.9 % (11.0-16.0); White Blood Count 9.4 X10*3/uL (4.8-10.8)
[2023-04-30 07:27] LABS: Anion Gap 15 (12-20); Blood Urea Nitrogen 13 mg/dL (9-16); Carbon Dioxide 24 mmol/L (22-29); Chloride 107 mmol/L (96-108); Creatinine Clr Calc Pharmacy 124.5; Estimated Glomerular Filt Rate > 60; Glucose Fasting 122 mg/dL (60-99); Sodium 141 mmol/L (135-145)
[2023-04-30 07:32] VITALS: BP 124/67; PULSE 74; RESP 18; TEMP 36; O2SAT 92
[2023-04-30 07:41] LABS: Calcium 8.7 mg/dL (8.4-10.2); Potassium 4.6 mmol/L (3.3-5.1)
[2023-04-30 07:44] LABS: Glucose, Whole Blood 119 mg/dL (60-115)
[2023-04-30] MEDS: Enoxaparin Sodium 40 MG/0.4 ML SYRINGE SUBCUT (08:38)
[2023-04-30] MEDS: metFORMIN HCl 1,000 MG TABLET 1000 MG PO ×2 (08:38→17:13)
[2023-04-30] MEDS: cloZAPine 25 MG TABLET PO (08:38)
[2023-04-30] MEDS: buPROPion HCl XL 300 MG TAB.ER.24H PO (08:38)
[2023-04-30] MEDS: predniSONE 20 MG TABLET 40 MG PO (08:38)
[2023-04-30] MEDS: Doxycycline Monohydrate 100 MG CAPSULE PO ×2 (08:38→20:18)
[2023-04-30] MEDS: Sucralfate 1 GM TABLET PO ×2 (08:38→17:13)
[2023-04-30] MEDS: 0.9 % Sodium Chloride Flush 3 ML SYRINGE IVFLUSH ×2 (08:41→20:19)
--- NOTE | 2023-04-30 09:37 | P.PNIM_ITS ---
Subjective Subjective Date of Service: 04/30/23 Interval History: now on room air, but feels weak Physical Exam 2 Vital Signs: Vital Signs: Last Vital Signs Temp 96.8 F 04/30/23 07:32 Pulse 74 04/30/23 07:32 Resp 18 04/30/23 07:32 BP 124/67 04/30/23 07:32 Pulse Ox 92 04/30/23 07:32 O2 Del Method Room Air 04/30/23 07:32 O2 Flow Rate 7 04/29/23 08:00 BMI result Body Mass Index 28.6 General: AO X 3, no acute distress Resp: cta bilateral, no accessory muscles used CVS: S1,S2,RRR GI: soft, non tender, non distended Neuro: motor grossly intact, alert Objective Data Active Medications Acetaminophen (Acetaminophen 325 Mg Tablet) 650 mg PO Q4H PRN PRN Reason: Fever Last Admin: 04/27/23 03:16 Dose: 650 mg Documented By: JORGE Albuterol/Ipratropium (Albuterol/Iprat 2.5/0.5mg 3 Ml Ampul.Neb) 3 ml INHALE RQ4H WHILE AWAKE PRN PRN Reason: Sob Atorvastatin Calcium (Atorvastatin Calcium 80 Mg Tablet) 80 mg PO BEDTIME [facility] Last Admin: 04/29/23 20:34 Dose: 80 mg Documented By: ROSANGELA Bupropion HCl (Bupropion Hcl Xl 300 Mg Tab.Er.24h) 300 mg PO DAILY [facility] Last Admin: 04/30/23 08:38 Dose: 300 mg Documented By: JAMARCUS Clozapine (Clozapine 25 Mg Tablet) 25 mg PO DAILY [facility] Last Admin: 04/30/23 08:38 Dose: 25 mg Documented By: JAMARCUS Clozapine (Clozapine 25 Mg Tablet) 50 mg PO BEDTIME [facility] Last Admin: 04/29/23 20:34 Dose: 50 mg Documented By: ROSANGELA Clozapine (Clozapine 100 Mg Tablet) 200 mg PO BEDTIME [facility] Last Admin: 04/29/23 20:34 Dose: 200 mg Documented By: ROSANGELA Dextrose (Dextrose 50 % 25 Gm/50 Ml Syringe) 25 gm IVPUSH Q15M PRN; Protocol PRN Reason: per Hypoglycemia Standing Ord. Divalproex Sodium (Divalproex Sodium 500 Mg Tablet.) 1,500 mg PO BEDTIME [facility] Last Admin: 04/29/23 20:34 Dose: 1,500 mg Documented By: ROSANGELA Doxycycline Monohydrate (Doxycycline Monohydrate 100 Mg Capsule) 100 mg PO Q12H [facility] Last Admin: 04/30/23 08:38 Dose: 100 mg Documented By: JAMARCUS Enoxaparin Sodium (Enoxaparin Sodium 40 Mg/0.4 Ml Syringe) 40 mg SUBCUT Q24H [facility] Last Admin: 04/30/23 08:38 Dose: 40 mg Documented By: JAMARCUS Escitalopram Oxalate (Escitalopram Oxalate 10 Mg Tablet) 10 mg PO BEDTIME [facility] Last Admin: 04/29/23 20:34 Dose: 10 mg Documented By: ROSANGELA Glucose (Glucose Gel 15 Gm Gel..Gram.) 15 gm PO Q15M PRN; Protocol PRN Reason: per Hypoglycemia Standing Ord. Ceftriaxone Sodium 1 gm/ (Sodium Chloride) 50 mls @ 100 mls/hr IV Q24H [facility] Last Infusion: 04/29/23 18:42 Dose: Infused Documented By: JAMARCUS Insulin Human Lispro (Insulin Lispro 100 Unit/Ml 3 Ml Vial) 0 unit SUBCUT QIDACHS [facility]; Protocol Last Admin: 04/30/23 07:52 Dose: Not Given Documented By: JAMARCUS Non-Admin Reason: No Insulin Coverage Metformin HCl (Metformin Hcl 1,000 Mg Tablet) 1,000 mg PO BID@0900,1700 [facility] Last Admin: 04/30/23 08:38 Dose: 1,000 mg Documented By: JAMARCUS Omeprazole (Omeprazole 20 Mg Reina.) 20 mg PO DAILY@0630 [facility] Last Admin: 04/30/23 05:55 Dose: 20 mg Documented By: ROSANGELA Polyethylene Glycol (Polyethylene Glycol 3350 17 Gm Powd.Pack) 17 gm PO DAILY PRN PRN Reason: Constipation Prednisone (Prednisone 20 Mg Tablet) 40 mg PO DAILY [facility] Last Admin: 04/30/23 08:38 Dose: 40 mg Documented By: JAMARCUS Sodium Chloride (0.9 % Sodium Chloride Flush 3 Ml Syringe) 3 ml IVFLUSH QSHIFT [facility] Last Admin: 04/30/23 08:41 Dose: 3 ml Documented By: JAMARCUS Sucralfate (Sucralfate 1 Gm Tablet) 1 gm PO BID@0900,1700 [facility] Last Admin: 04/30/23 08:38 Dose: 1 gm Documented By: JAMARCUS Labs 04/30/23 05:52 04/30/23 05:52 Labs: Laboratory Results - last 24 hr 04/29/23 04/29/23 04/29/23 11:45 16:16 20:04 MCV MCH MCHC RDW Plt Count MPV Absolute Nucleated RBC Nucleated RBC % (auto) Anion Gap Estim Creat Clear Calc Estimated GFR POC Glucose 116 H 133 H 153 H Fasting Glucose Calcium 04/30/23 04/30/23 05:52 07:35 MCV 82.5 MCH 27.4 MCHC 33.2 RDW 15.9 Plt Count 256 MPV 9.4 Absolute Nucleated RBC 0.000 Nucleated RBC % (auto) 0.0 Anion Gap 15 Estim Creat Clear Calc 124.5 Estimated GFR > 60 POC Glucose 119 H Fasting Glucose 122 H Calcium 8.7 D Assessment and Plan (1) Urinary tract infection: Status: Acute Plan 67M PMH schizoaffective disorder, copd, DM, htn, [facility], ams multiple falls, ams secondary to acute metabolic encephalopathy due to UTI urine culture - rex olson pt appreciated - should [facility] acute hypoxic respiratory failure due to acute bronchitis, poor mucus clearance prendiosne, nebs prn, flutter valve, continue antibiotics now on room air mild rhabdomyolosis resolved schizoaffective disorder clozapine, depakote, celexa htn not on meds, monitor copd stable DM insulin sliding scale hold metformin dvt prophylaxis - lovenox full code reason for continued hospitalization:weakness, monitor off o2 Quality Stroke Does the patient have a stroke diagnosis?: No VTE Prior VTE?: No VTE Risk Level:: Medical - moderate - high VTE Device Contraindication: Treatment Not Indicated VTE Drug Contraindication: N/A - Med Ordered
[2023-04-30 11:34] LABS: Glucose, Whole Blood 139 mg/dL (60-115)
--- NOTE | 2023-04-30 14:05 | MHC.SL.SWA ---
Risk of Aspiration Due to: Mildly weak cough Dysphasia Diet Status: No change Liquid Consistency and Strategies for Safe Swallow: Liquid Intake Recommendation: Thin Liquid Intake Strategies: Small Sips Solid Food Consistency: Dietary Recommendations: Regular Additional Modifications to Solid Foods: Oral Medication Intake: Whole with Liquid Please contact the pharmacy regarding appropriate crushable or liquid drug formulations that are available whenever modified delivery is recommended. Compensatory Strategies and Precautions to be Taken for Safe Swallow: Sitting Upright (90 deg) Small Bites and Sips Alternate Liquids/Solids Rate of Ingestion Change Supervision While Eating and Drinking for Safe Swallow: Intermittent Supervision Foods to Avoid: Swallowing Recommended Treatments: Compens. Strategy Educat. Recommendation for Speech: Inpatient Speech Therapy Comment: Recommend patient continue with regular solids, thin liquids, pills whole w/ liquid. Recommend intermittent supervision to monitor SpO2 d/t RN's report of intermittently desatting w/o explanation and patient's observed impulsivity while eating. Patient benefits from cueing to take small, slow bites. [employer] to continue to monitor for toleration of diet 1-2x. [employer] Clinican/Clinical Fellow: No Supervisory Statement: I have reviewed and agree with the student/clinical fellow's documentation: N/A Speech Language Pathologist: Nyasia Davey M.A., [facility]
[2023-04-30 15:53] VITALS: BP 117/65; PULSE 87; RESP 18; TEMP 36.4; O2SAT 93
[2023-04-30 16:27] LABS: Glucose, Whole Blood 171 mg/dL (60-115)
[2023-04-30] MEDS: Insulin Lispro 100 UNIT/ML 3 ML VIAL SUBCUT (17:12)
[2023-04-30] MEDS: cefTRIAXone sodium 1 GM in 0.9 % Sodium Chloride 50 ML IV (17:13)
[2023-04-30 19:23] VITALS: BP 114/62; PULSE 89; RESP 18; TEMP 37; O2SAT 94
[2023-04-30] MEDS: cloZAPine 25 MG TABLET 50 MG PO (20:18)
[2023-04-30] MEDS: Escitalopram Oxalate 10 MG TABLET PO (20:18)
[2023-04-30] MEDS: Divalproex Sodium 500 MG TABLET.DR 1500 MG PO (20:18)
[2023-04-30] MEDS: Atorvastatin Calcium 80 MG TABLET PO (20:18)
[2023-04-30] MEDS: cloZAPine 100 MG TABLET 200 MG PO (20:19)
[2023-04-30 20:42] LABS: Glucose, Whole Blood 149 mg/dL (60-115)
[2023-05-01 04:00] VITALS: BP 118/67; PULSE 88; RESP 18; TEMP 36.6; O2SAT 96
[2023-05-01] MEDS: Omeprazole 20 MG CAPSULE.DR PO (05:55)
[2023-05-01 06:32] LABS: Hematocrit 36.2 % (42.0-52.0); Hemoglobin 11.8 g/dl (14.0-18.0); Mean Corpuscular HGB Conc 32.6 g/dl (31.0-36.0); Mean Corpuscular Hemoglobin 27.3 pg (27.0-33.0); Mean Corpuscular Volume 83.8 fL (80.0-98.0); Mean Platelet Volume 9.6 fL (9.4-12.4); Platelet Count 317 X10*3/uL (160-400); Red Blood Count 4.32 X10*6/uL (4.60-5.80); Red Cell Distribution Width 16.1 % (11.0-16.0); White Blood Count 11.2 X10*3/uL (4.8-10.8)
[2023-05-01 07:04] LABS: Anion Gap 15 (12-20); Blood Urea Nitrogen 14 mg/dL (9-16); Calcium 8.7 mg/dL (8.4-10.2); Carbon Dioxide 27 mmol/L (22-29); Chloride 106 mmol/L (96-108); Estimated Glomerular Filt Rate > 60; Glucose Fasting 119 mg/dL (60-99); Sodium 144 mmol/L (135-145)
[2023-05-01 07:20] LABS: Potassium 3.5 mmol/L (3.3-5.1)
[2023-05-01 07:21] LABS: Glucose, Whole Blood 110 mg/dL (60-115)
[2023-05-01 07:30] VITALS: BP 128/66; PULSE 87; RESP 16; TEMP 36.6; O2SAT 92
--- NOTE | 2023-05-01 07:51 | P.PNIM_ITS ---
Subjective Subjective Date of Service: 05/01/23 Interval History: much improved Physical Exam 2 Vital Signs: Vital Signs: Last Vital Signs Temp 97.9 F 05/01/23 07:30 Pulse 87 05/01/23 07:30 Resp 16 05/01/23 07:30 BP 128/66 05/01/23 07:30 Pulse Ox 92 05/01/23 07:30 O2 Del Method Room Air 05/01/23 04:00 O2 Flow Rate 7 04/29/23 08:00 BMI result Body Mass Index 28.6 General: AO X 3, no acute distress Resp: cta bilateral, no accessory muscles used CVS: S1,S2,RRR GI: soft, non tender, non distended Neuro: motor grossly intact, alert Objective Data Active Medications Acetaminophen (Acetaminophen 325 Mg Tablet) 650 mg PO Q4H PRN PRN Reason: Fever Last Admin: 04/27/23 03:16 Dose: 650 mg Documented By: JORGE Albuterol/Ipratropium (Albuterol/Iprat 2.5/0.5mg 3 Ml Ampul.Neb) 3 ml INHALE RQ4H WHILE AWAKE PRN PRN Reason: Sob Atorvastatin Calcium (Atorvastatin Calcium 80 Mg Tablet) 80 mg PO BEDTIME [facility] Last Admin: 04/30/23 20:18 Dose: 80 mg Documented By: ROSANGELA Bupropion HCl (Bupropion Hcl Xl 300 Mg Tab.Er.24h) 300 mg PO DAILY [facility] Last Admin: 04/30/23 08:38 Dose: 300 mg Documented By: JAMARCUS Clozapine (Clozapine 25 Mg Tablet) 25 mg PO DAILY [facility] Last Admin: 04/30/23 08:38 Dose: 25 mg Documented By: JAMARCUS Clozapine (Clozapine 25 Mg Tablet) 50 mg PO BEDTIME [facility] Last Admin: 04/30/23 20:18 Dose: 50 mg Documented By: ROSANGELA Clozapine (Clozapine 100 Mg Tablet) 200 mg PO BEDTIME [facility] Last Admin: 04/30/23 20:19 Dose: 200 mg Documented By: ROSANGELA Dextrose (Dextrose 50 % 25 Gm/50 Ml Syringe) 25 gm IVPUSH Q15M PRN; Protocol PRN Reason: per Hypoglycemia Standing Ord. Divalproex Sodium (Divalproex Sodium 500 Mg Tablet.) 1,500 mg PO BEDTIME [facility] Last Admin: 04/30/23 20:18 Dose: 1,500 mg Documented By: ROSANGELA Doxycycline Monohydrate (Doxycycline Monohydrate 100 Mg Capsule) 100 mg PO Q12H [facility] Last Admin: 04/30/23 20:18 Dose: 100 mg Documented By: ROSANGELA Enoxaparin Sodium (Enoxaparin Sodium 40 Mg/0.4 Ml Syringe) 40 mg SUBCUT Q24H [facility] Last Admin: 04/30/23 08:38 Dose: 40 mg Documented By: JAMARCUS Escitalopram Oxalate (Escitalopram Oxalate 10 Mg Tablet) 10 mg PO BEDTIME [facility] Last Admin: 04/30/23 20:18 Dose: 10 mg Documented By: ROSANGELA Glucose (Glucose Gel 15 Gm Gel..Gram.) 15 gm PO Q15M PRN; Protocol PRN Reason: per Hypoglycemia Standing Ord. Ceftriaxone Sodium 1 gm/ (Sodium Chloride) 50 mls @ 100 mls/hr IV Q24H [facility] Last Infusion: 04/30/23 17:49 Dose: Infused Documented By: JANKI Insulin Human Lispro (Insulin Lispro 100 Unit/Ml 3 Ml Vial) 0 unit SUBCUT QIDACHS [facility]; Protocol Last Admin: 05/01/23 07:23 Dose: Not Given Documented By: COTEMA Non-Admin Reason: No Insulin Coverage Metformin HCl (Metformin Hcl 1,000 Mg Tablet) 1,000 mg PO BID@0900,1700 [facility] Last Admin: 04/30/23 17:13 Dose: 1,000 mg Documented By: JANKI Omeprazole (Omeprazole 20 Mg Reina.) 20 mg PO DAILY@0630 [facility] Last Admin: 05/01/23 05:55 Dose: 20 mg Documented By: ROSANGELA Polyethylene Glycol (Polyethylene Glycol 3350 17 Gm Powd.Pack) 17 gm PO DAILY PRN PRN Reason: Constipation Prednisone (Prednisone 20 Mg Tablet) 40 mg PO DAILY [facility] Last Admin: 04/30/23 08:38 Dose: 40 mg Documented By: JAMARCUS Sodium Chloride (0.9 % Sodium Chloride Flush 3 Ml Syringe) 3 ml IVFLUSH QSHIFT [facility] Last Admin: 04/30/23 20:19 Dose: 3 ml Documented By: ROSANGELA Sucralfate (Sucralfate 1 Gm Tablet) 1 gm PO BID@0900,1700 [facility] Last Admin: 04/30/23 17:13 Dose: 1 gm Documented By: JANKI Labs 05/01/23 05:53 05/01/23 05:53 Labs: Laboratory Results - last 24 hr 04/30/23 04/30/23 04/30/23 11:23 16:20 20:28 MCV MCH MCHC RDW Plt Count MPV Absolute Nucleated RBC Nucleated RBC % (auto) Anion Gap Estim Creat Clear Calc Estimated GFR POC Glucose 139 H 171 H 149 H Fasting Glucose Calcium 05/01/23 05/01/23 05:53 07:18 MCV 83.8 MCH 27.3 MCHC 32.6 RDW 16.1 H Plt Count 317 MPV 9.6 Absolute Nucleated RBC 0.000 Nucleated RBC % (auto) 0.0 Anion Gap 15 Estim Creat Clear Calc 121.0 Estimated GFR > 60 POC Glucose 110 Fasting Glucose 119 H Calcium 8.7 Assessment and Plan (1) Urinary tract infection: Status: Acute Plan 67M PMH schizoaffective disorder, copd, DM, htn, [facility], ams multiple falls, ams secondary to acute metabolic encephalopathy due to UTI urine culture - rex olson pt appreciated - [facility] acute hypoxic respiratory failure due to acute bronchitis, poor mucus clearance prendiosne, nebs prn, flutter valve, continue antibiotics now on room air mild rhabdomyolosis resolved schizoaffective disorder clozapine, depakote, celexa htn not on meds, monitor copd stable DM insulin sliding scale hold metformin dvt prophylaxis - lovenox full code reason for continued hospitalization:safe dispo Quality Stroke Does the patient have a stroke diagnosis?: No VTE Prior VTE?: No VTE Risk Level:: Medical - moderate - high VTE Device Contraindication: Treatment Not Indicated VTE Drug Contraindication: N/A - Med Ordered
--- NOTE | 2023-05-01 07:54 | P.DS_ITS ---
DS: Providers Provider Date of Service: 05/01/23 Date of admission: 04/26/23 18:04 Primary care physician: TALI CERON DS: Diagnosis Discharge Diagnosis (1) Urinary tract infection: Status: Acute DS: Summary Hospital Course Hospital Course: from initial hpi: 67M PMH schizoaffective disorder, copd, DM, htn, [facility]. patient is poor historian and does not remember event, per EMS was transfered for increased confusion, fall times 2, and aleterd mental status. in ED, UA grossly positive, elevated cpk to 3000, trauma work up unremarkable. hospital course: Patient was admitted for multiple falls and altered mental status secondary to acute metabolic encephalopathy due to urinary tract infection. His urine grew E coli. He completed course of ceftriaxone. Mental status returned to baseline. He was seen by physical therapy recommended having rehab services at his [facility]. Course was complicated by acute hypoxic respiratory failure due to acute bronchitis and poor mucus clearance. He was treated with prednisone, nebs, flutter valve. Shortness of breath and hypoxia significantly improved. He is now on room air. He will be discharged on 5 more days of doxy and prednisone. For acute mild rhabdomyolysis he received IV fluids and rhabdomyolysis resolved. For schizoaffective disorder he was continued on clozapine, Depakote, Celexa on remained stable. For diabetes he was continued on insulin sliding scale. Patient is back to baseline and [facility] Time Attestation Discharge coordination time: Greater than 30 minutes Quality: Safe Use of Opioids Does Pt have an Active Cancer Diagnosis on the Problem List?: No Quality: Stroke Does the patient have a stroke diagnosis?: No Physical Exam Vital Signs: Vital Signs: Last Vital Signs Temp 97.9 F 05/01/23 07:30 Pulse 87 05/01/23 07:30 Resp 16 05/01/23 07:30 BP 128/66 05/01/23 07:30 Pulse Ox 92 05/01/23 07:30 O2 Del Method Room Air 05/01/23 04:00 O2 Flow Rate 7 04/29/23 08:00 BMI result Body Mass Index 28.6 General: AO X 3, no acute distress Resp: CTA bilateral, no accessory muscles used CVS: S1,S2,RRR GI: soft, non tender, non distended Neuro: motor grossly intact, alert DS: Data Data Completed and Pending Labs on day of discharge: Laboratory Results - last 24 hr 04/30/23 04/30/23 04/30/23 11:23 16:20 20:28 WBC RBC Hgb Hct MCV MCH MCHC RDW Plt Count MPV Absolute Nucleated RBC Nucleated RBC % (auto) Sodium Potassium Chloride Carbon Dioxide Anion Gap BUN Creatinine Estim Creat Clear Calc Estimated GFR POC Glucose 139 H 171 H 149 H Fasting Glucose Calcium 05/01/23 05/01/23 05:53 07:18 WBC 11.2 H RBC 4.32 L Hgb 11.8 L Hct 36.2 L MCV 83.8 MCH 27.3 MCHC 32.6 RDW 16.1 H Plt Count 317 MPV 9.6 Absolute Nucleated RBC 0.000 Nucleated RBC % (auto) 0.0 Sodium 144 Potassium 3.5 D Chloride 106 Carbon Dioxide 27 Anion Gap 15 BUN 14 Creatinine 0.71 Estim Creat Clear Calc 121.0 Estimated GFR > 60 POC Glucose 110 Fasting Glucose 119 H Calcium 8.7 Preliminary micro results at discharge 04/26/23 16:59 Blood Culture - Preliminary Blood - Venous No growth after 48 hours. 04/26/23 16:59 Blood Culture - Preliminary Blood - Venous No growth after 48 hours. Discharge Plan Discharge Anticipated Discharge Date/Time: 05/01/23 07:52 Patient Disposition: [facility] [place] Discharge Diagnosis: uti, rhabdo Referrals: TALI CERON [Primary Care Provider] - 1 Week Discharge Medications: New prednisone 20 mg Tablet 40 mg PO DAILY 5 Days Qty: 0 0RF doxycycline monohydrate 100 mg Capsule 100 mg PO Q12H 3 Days Qty: 0 0RF Continued atorvastatin 80 mg Tablet 80 mg PO BEDTIME omega-3 fatty acids 1,000 mg Capsule 2,000 mg PO BID@0900,1700 polyethylene glycol 3350 17 gram Powder In Packet 17 g PO DAILY PRN (Reason: Constipation) sucralfate 1 gram Tablet 1 g PO BID@0900,1700 divalproex [Depakote] 500 mg Tablet,Delayed Release (Dr/Ec) 1,500 mg PO BEDTIME citalopram 20 mg Tablet 20 mg PO BEDTIME pantoprazole 40 mg Tablet,Delayed Release (Dr/Ec) 40 mg PO DAILY metformin 1,000 mg Tablet 1,000 mg PO BID@0900,1700 clozapine 25 mg Tablet 25 mg PO DAILY bupropion HCl 300 mg Tablet Extended Release 24 Hr 300 mg PO DAILY clozapine 50 mg Tablet 50 mg PO BEDTIME clozapine 200 mg Tablet 200 mg PO BEDTIME Discharge Orders: Discharge Order (Routine); Ordered 05/01/23 Ordered By: Cesar Kate Diet: Advance to usual diet Activity on Discharge: As tolerated Stand Alone Forms: Patient Portal Discharge page Care Plan Goals: recovery Health Concerns: uti, aspiration Plan of Treatment: 5 more days doxy and prednisone Assessment: see above
--- NOTE | 2023-05-01 09:00 | MHC.CM.PN ---
Patient is discharged today. He will return to [facility] this afternoon. The facility has requested patient transport 4-5pm. 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 Patient transport via BLS.Contact info for guardian has not been received as requested. Contact info for Nurse 2 Nurse report has been provided to the RN.
[2023-05-01] MEDS: Doxycycline Monohydrate 100 MG CAPSULE PO (09:05)
[2023-05-01] MEDS: metFORMIN HCl 1,000 MG TABLET 1000 MG PO (09:05)
[2023-05-01] MEDS: Sucralfate 1 GM TABLET PO (09:05)
[2023-05-01] MEDS: cloZAPine 25 MG TABLET PO (09:05)
[2023-05-01] MEDS: 0.9 % Sodium Chloride Flush 3 ML SYRINGE IVFLUSH (09:05)
[2023-05-01] MEDS: Enoxaparin Sodium 40 MG/0.4 ML SYRINGE SUBCUT (09:05)
[2023-05-01] MEDS: buPROPion HCl XL 300 MG TAB.ER.24H PO (09:05)
[2023-05-01] MEDS: predniSONE 20 MG TABLET 40 MG PO (09:05)
[2023-05-01 11:09] LABS: Glucose, Whole Blood 111 mg/dL (60-115)
[2023-05-01 14:56] VITALS: BP 126/86; PULSE 86; RESP 18; TEMP 36.5; O2SAT 94
== END 2023-05-01 16:28 | disposition skilled nursing facility (03) | DRG 463 ==
LOC: HO.ED 17:03 → HO.EDOVER 18:16 → HO.S3 04-27 12:52
PROVIDERS: Student in an Organized Health Care Education/Training Program; Admitting Provider Internal Medicine; Emergency Provider Emergency Medicine Emergency Medical Services; PCP Emergency Medicine; Visit Provider Internal Medicine
DX: N39.0 Urinary tract infection, site not specified (principal); J96.01 Acute respiratory failure with hypoxia; G93.41 Metabolic encephalopathy; F25.9 Schizoaffective disorder, unspecified; J44.0 Chronic obstructive pulmonary disease with (acute) lower respiratory infection; B96.20 Unspecified Escherichia coli [E. coli] as the cause of diseases classified elsewhere; E11.9 Type 2 diabetes mellitus without complications; R29.6 Repeated falls; Z91.81 History of falling; J20.9 Acute bronchitis, unspecified; M62.82 Rhabdomyolysis; Z20.822 Contact with and (suspected) exposure to COVID-19; Z79.899 Other long term (current) drug therapy
CPT/HCPCS: 0241U; 36415; 36600; 70450; 71045; 72125; 80048; 80053; 81001; 82550; 82803; 82947; 83605; 83880; 84484; 85025; 85027; 85610; 85730; 87040; 87086; 87088; 87186; 92610; 92950; 93005; 93306; 97162; 99285; J0696; J1650; J1940; J2270; J7120; Q9957

== ENCOUNTER → 2023-04-26 12:51 | Outpatient (BNV) | payer MEDICAID, SELFPAY | PROVIDERS: Admitting Provider Internal Medicine; Emergency Provider Emergency Medicine Emergency Medical Services; Visit Provider Internal Medicine Cardiovascular Disease | DX: I45.10 Unspecified right bundle-branch block (principal) | CPT/HCPCS: 93010 ==

== ENCOUNTER → 2023-04-26 13:39 | Outpatient (BNV) | payer MEDICAID, SELFPAY | PROVIDERS: Emergency Provider Emergency Medicine Emergency Medical Services; Visit Provider Internal Medicine | DX: N39.0 Urinary tract infection, site not specified (principal); R31.9 Hematuria, unspecified; J96.01 Acute respiratory failure with hypoxia | CPT/HCPCS: 99223; 99232; 99233; 99239 ==

== ENCOUNTER 2023-04-26 18:04 | Outpatient (BNV) | payer MEDICAID, SELFPAY | END 2023-04-28 07:00 | PROVIDERS: Admitting Provider Internal Medicine; Emergency Provider Emergency Medicine Emergency Medical Services; PCP Emergency Medicine; Visit Provider Internal Medicine Cardiovascular Disease | DX: I34.89 Other nonrheumatic mitral valve disorders (principal) | CPT/HCPCS: 93306 ==

== ENCOUNTER 2024-09-18 11:13 | Emergency (ER) | payer MEDICAID, SELFPAY ==
[2024-09-18] VITALS (11 sets, daily range): BP systolic 110–146; BP diastolic 65–87; PULSE 86–92; RESP 13–18; TEMP 36.5–36.9; O2SAT 95–99; BMI 24.5
[2024-09-18 11:31] LABS: Glucose, Whole Blood 143 mg/dL (60-115)
--- NOTE | 2024-09-18 11:33 | ED_ITS ---
HPI - General Adult General Chief complaint: Recheck/Abnormal Lab/Rx Stated complaint: ABN LABS FROM [facility] Time Seen by Provider: 09/18/24 11:33 Source: patient and EMS Mode of arrival: EMS Limitations: physical limitation (hx of psychotic disorder with delusions) History of Present Illness ED Provider: Suad Doan PA-C HPI narrative: Patient is a 69 year old assigned male at with a history of COPD, delusional disorder, GERMÁN, metastatic (stage IV) urothelial carcinoma s/p TURBT followed at [facility], orthostatic hypotension on midodrine, frontotemporal neurocognitive disorder, and hematuria presenting to the emergency department today from [facility] for a low hemoglobin. Patient states that he knows he has bladder cancer and would like to be treated with mena based healing and have his brain transplanted into a new body. Patient does have an invoked healthcare proxy Rosendo Funez - who I attempted to call and am awaiting a call back. Related Data Home Medications ?Medication ?Instructions ?Recorded ?Confirmed atorvastatin 80 mg tablet 80 mg PO BEDTIME 04/26/23 04/26/23 bupropion HCl 300 mg 24 hr tablet, 300 mg PO DAILY 04/26/23 04/26/23 extended release citalopram 20 mg tablet 20 mg PO BEDTIME 04/26/23 04/26/23 clozapine 200 mg tablet 200 mg PO BEDTIME 04/26/23 04/26/23 clozapine 25 mg tablet 25 mg PO DAILY 04/26/23 04/26/23 clozapine 50 mg tablet 50 mg PO BEDTIME 04/26/23 04/26/23 divalproex 500 mg tablet,delayed 1,500 mg PO BEDTIME 04/26/23 04/26/23 release (Depakote) metformin 1,000 mg tablet 1,000 mg PO BID@0900,1700 04/26/23 04/26/23 omega-3 fatty acids 1,000 mg 2,000 mg PO BID@0900,1700 04/26/23 04/26/23 capsule pantoprazole 40 mg tablet,delayed 40 mg PO DAILY 04/26/23 04/26/23 release polyethylene glycol 3350 17 gram 17 g PO DAILY PRN Constipation 04/26/23 04/26/23 oral powder packet sucralfate 1 gram tablet 1 g PO BID@0900,1700 04/26/23 04/26/23 Previous Rx's ?Medication ?Instructions ?Recorded doxycycline monohydrate 100 mg 100 mg PO Q12H 3 days #0 caps 05/01/23 capsule prednisone 20 mg tablet 40 mg (2 x 20 mg) PO DAILY 5 days 05/01/23 #0 tabs Allergies Allergy/AdvReac Type Severity Reaction Status Date / Time thiothixene Allergy Unknown Verified 09/18/24 11:23 Review of Systems 2 Review of Systems: Yes Other (patient unable to appropriately answer ROS questions secondary to neurocog) [facility] Past Medical History Attestation statement: The following information was validated with the patient. (all information validated with the patient's documentation from [facility] and [facility]) Source: old records reviewed and nursing notes reviewed Social History Social History Household Members: Other Housing: Long-Term Patient Tobacco Use Status: Tobacco use Unknown Advance Directives: No Advance Directives Information Provided: Yes Do you have a plan to hurt others: No Plan service: No Physical Exam ED Vital Signs: Vital Signs - 24 hr 09/18/24 11:20 09/18/24 13:10 09/18/24 13:19 Temperature 97.7 F 98.2 F 98.2 F Pulse Rate 89 87 87 Respiratory Rate 15 15 16 Blood Pressure 110/65 122/76 122/76 Pulse Oximetry 95 99 Oxygen Delivery Method Room Air Room Air 09/18/24 13:29 09/18/24 13:30 09/18/24 14:06 Temperature 98.3 F 98.3 F 98.5 F Pulse Rate 87 87 88 Respiratory Rate 16 16 18 Blood Pressure 124/76 124/76 123/72 Pulse Oximetry 97 Oxygen Delivery Method Room Air 09/18/24 16:02 09/18/24 16:27 Temperature 98.4 F 98.4 F Pulse Rate 86 92 Respiratory Rate 18 13 Blood Pressure 143/87 H 143/81 H Pulse Oximetry 96 Oxygen Delivery Method Room Air BMI result Body Mass Index 24.5 Const General: cooperative, no acute distress, alert and awake Nutritional Appearance: well nourished Orientation/consciousness: oriented to person HENMD Head: Yes normal to inspection and Yes atraumatic Ears: hearing grossly normal bilaterally and external ears normal General nose exam: Normal external nose present, no nasal discharge noted and no epistaxis Face and sinus: Yes normal facial exam, No abrasion and No laceration Mouth: Normal oral and palatal mucosa present, no drooling and no muffled voice Eyes General: appearance normal, both eyes and all related structures Periorbital: periorbital findings normal Eyelids: Yes eyelids normal Conjunctivae: conjunctivae normal Pupils: Equal, round and reactive pupils present EOM: EOMs intact bilaterally Neck Neck: Yes normal visual inspection, Yes full ROM and Yes no lymphadenopathy Resp Effort & Inspection: normal respiratory effort and able to speak in complete sentences Skin Other: pale Neuro General: oriented to person, moves all extremities and CN's II-XI intact bilaterally Cranial nerves: Yes Equal, round and reactive pupils present Extrem General: Yes normal to inspection, Yes full ROM and Yes capillary refill normal Psych Appearance: grossly normal Mental Status: mental status grossly normal Affect: normal affect Attitude: cooperative Thought process: Illogical thought process present Medical Decision Making Medical Decision Making MDM Narrative: Patient is a 69 year old assigned male at with a history of COPD, delusional disorder, GERMÁN, metastatic (stage IV) urothelial carcinoma s/p TURBT followed at [facility], orthostatic hypotension on midodrine, frontotemporal neurocognitive disorder, and hematuria presenting to the emergency department today from [facility] for a low hemoglobin. Patient's physical exam was as noted in the physical exam portion of this note. Patient is a poor historian and unable to understand the significance of his medical conditions - including his cancer diagnosis secondary to his delusional disorder and neurocognitive disorder. I reviewed the notes from the patient's oncologist at [facility] who recommended palliative care however, he was unable to get ahold of the patient's guardian Rosendo Funez to confirm this treatment regiment. [facility] stated the patient's hgb at their facility was 6.2. Patient's blood work here showed an initial hemoglobin of 7.3 with a hct of 24.3. Patient's initial CR was 1.72 with a BUN of 20. Patient's urine showed gross blood (chronic for the patient due to bladder cancer), moderate leuks, >50 WBC, and 2+ bacteria. Patient does not report any urinary symptoms - will await culture before initiating treatment. I attempted to contact the patient's healthcare proxy, Rosendo Funez at however, he never answered his phone or returned my calls. I consulted with my attending physician, Dr. Powers, who recommended giving 1 unit of PRBCs and [facility] follow up. Patient verbally consented to receiving a unit of PRBCs however, given his neurocognitive baseline, I signed the consent with witness Tamia Queen RN. Patient was given 1 unit of PRBCs and a repeat CBC and CMP were performed showing a hgb of 7.9, HCT of 25.5, CR of 1.44, and BUN of 20. When comparing the patient's CR and BUN to his previously done CMPs at [facility] - BUN of 20 and CR of 1.44 are consistent with his baseline. I explained my physical exam findings as well as all test results to the patient. I answered all questions asked by the patient. I stressed the importance of the patient taking his medication as directed (either prescribed or as the over the counter packaging recommends). I stressed the importance of the patient following up with his primary care provider and oncologist. I stressed the importance of the patient returning to the emergency department immediately if he were to develop any dizziness, shortness of breath, difficulty breathing, chest pain, blurry vision, loss of vision, nausea, vomiting, abdominal pain, fever, chills, back pain, or any other complaints. Patient verbalized agreement with this treatment plan and discharge. Upon determining patient was eligible for discharge - I again attempted to contact the patient's healthcare proxy who again did not answer. Differential Diagnosis Differential Diagnoses: The differential diagnosis associated with the presentation includes Acute on chronic anemia secondary to stage 4 / metastatic urothelial carcinoma Admission/Observation Consideration of admission/observation: Escalation of care including admission/observation considered Patient would have been admitted to the hospital had his work up had any findings where hospital admission was appropriate and his clinical presentation warranted hospital admission. Lab Data [facility] Lab Attestation statement: I reviewed the patient's lab results. My interpretation of these results are in the [facility] Rationale portion of this note. 09/18/24 16:11 09/18/24 16:11 Labs: Lab Results 09/18/24 09/18/24 09/18/24 Range/Units 11:23 11:41 13:13 WBC 9.7 (4.8-10.8) X10*3/uL RBC 2.98 L D (4.60-5.80) X10*6/uL Hgb 7.3 L D (14.0-18.0) g/dl Hct 24.3 L D (42.0-52.0) % MCV 81.5 (80.0-98.0) fL MCH 24.5 L (27.0-33.0) pg MCHC 30.0 L (31.0-36.0) g/dl RDW 16.6 H (11.0-16.0) % Plt Count 398 D (160-400) X10*3/uL MPV 9.2 L (9.4-12.4) fL Immature Gran % (Auto) 1.9 H (0.0-0.4) % Neut % (Auto) 71.7 (45-73) % Lymph % (Auto) 13.9 L (20-40) % Elliott % (Auto) 8.6 (2-11) % Eos % (Auto) 3.5 (0-4) % Baso % (Auto) 0.4 (0-2) % Lymph # (Auto) 1.4 (1.2-4.9) X10*3/uL Elliott # (Auto) 0.8 (0.1-1.2) X10*3/uL Eos # (Auto) 0.3 (0.0-0.4) X10*3/uL Baso # (Auto) 0.0 (0.0-0.2) X10*3/uL Abs Immat Gran (auto) 0.18 H (0.00-0.03) X10*3/uL Absolute Neuts (auto) 6.9 (2.0-8.3) x10*3/uL Absolute Nucleated RBC 0.000 (0.0-0.012) X10*3/uL Nucleated RBC % (auto) 0.0 (0.0-0.2) /100WBC PT 11.5 (10.9-12.4) SEC INR 1.0 (0.9-1.1) Sodium 145 (135-145) mmol/L Potassium 4.3 (3.3-5.1) mmol/L Chloride 108 (96-108) mmol/L Carbon Dioxide 27 (22-29) mmol/L Anion Gap 14 (12-20) BUN 20 H (9-16) mg/dL Creatinine 1.72 H (0.5-1.4) mg/dL Estim Creat Clear Calc 44.4 Estimated GFR 40 POC Glucose 143 H (60-115) mg/dL Random Glucose 139 H (60-115) mg/dL Calcium 8.3 L (8.4-10.2) mg/dL Total Bilirubin 0.2 (0.0-1.0) mg/dL AST 20 (5-37) U/L ALT < 6 (0-40) U/L Alkaline Phosphatase 58 (39-117) U/L Total Protein 6.0 L (6.5-8.0) g/dL Albumin 3.2 L (3.5-5.0) g/dL Urine Color Red A Urine Appearance Turbid Urine pH 5.0 (5.0-9.0) Ur Specific Coulter 1.020 (1.005-1.025) Urine Protein 300 (3+) H (Neg-Trace) mg/dL Urine Glucose (UA) Negative (Negative) mg/dL Urine Ketones 15 (Negative) mg/dL Urine Blood Large (3+) H (Negative) Urine Nitrite See Note (Negative) Ur Leukocyte Esterase Moderate (2+) H (Negative) Urine RBC >20 H (0-2) /HPF Urine WBC >50 H (0-5) /HPF Ur Squamous Epith Cells 0-2 (0-2) /HPF Urine Bacteria 2+ (None Seen) Hyaline Casts 0-2 (0-2) /LPF Blood Type B Positive Antibody Screen NEGATIVE Crossmatch See Detail 09/18/24 Range/Units 16:11 WBC 10.4 (4.8-10.8) X10*3/uL RBC 3.15 L (4.60-5.80) X10*6/uL Hgb 7.9 L (14.0-18.0) g/dl Hct 25.5 L (42.0-52.0) % MCV 81.0 (80.0-98.0) fL MCH 25.1 L (27.0-33.0) pg MCHC 31.0 (31.0-36.0) g/dl RDW 16.6 H (11.0-16.0) % Plt Count 384 (160-400) X10*3/uL MPV 9.2 L (9.4-12.4) fL Immature Gran % (Auto) 1.9 H (0.0-0.4) % Neut % (Auto) 67.8 (45-73) % Lymph % (Auto) 17.7 L (20-40) % Elliott % (Auto) 9.0 (2-11) % Eos % (Auto) 3.3 (0-4) % Baso % (Auto) 0.3 (0-2) % Lymph # (Auto) 1.8 (1.2-4.9) X10*3/uL Elliott # (Auto) 0.9 (0.1-1.2) X10*3/uL Eos # (Auto) 0.3 (0.0-0.4) X10*3/uL Baso # (Auto) 0.0 (0.0-0.2) X10*3/uL Abs Immat Gran (auto) 0.20 H (0.00-0.03) X10*3/uL Absolute Neuts (auto) 7.0 (2.0-8.3) x10*3/uL Absolute Nucleated RBC 0.000 (0.0-0.012) X10*3/uL Nucleated RBC % (auto) 0.0 (0.0-0.2) /100WBC PT (10.9-12.4) SEC INR (0.9-1.1) Sodium 143 (135-145) mmol/L Potassium 4.1 (3.3-5.1) mmol/L Chloride 107 (96-108) mmol/L Carbon Dioxide 28 (22-29) mmol/L Anion Gap 12 (12-20) BUN 20 H (9-16) mg/dL Creatinine 1.44 H (0.5-1.4) mg/dL Estim Creat Clear Calc 53.1 Estimated GFR 49 POC Glucose (60-115) mg/dL Random Glucose 83 (60-115) mg/dL Calcium 8.5 (8.4-10.2) mg/dL Total Bilirubin 0.2 (0.0-1.0) mg/dL AST 18 (5-37) U/L ALT < 6 (0-40) U/L Alkaline Phosphatase 59 (39-117) U/L Total Protein 6.1 L (6.5-8.0) g/dL Albumin 3.2 L (3.5-5.0) g/dL Urine Color Urine Appearance Urine pH (5.0-9.0) Ur Specific Coulter (1.005-1.025) Urine Protein (Neg-Trace) mg/dL Urine Glucose (UA) (Negative) mg/dL Urine Ketones (Negative) mg/dL Urine Blood (Negative) Urine Nitrite (Negative) Ur Leukocyte Esterase (Negative) Urine RBC (0-2) /HPF Urine WBC (0-5) /HPF Ur Squamous Epith Cells (0-2) /HPF Urine Bacteria (None Seen) Hyaline Casts (0-2) /LPF Blood Type Antibody Screen Crossmatch Independent Historian Clinical information obtained from an independent historian. History obtained from or confirmed by: EMS (EMS provided additional history) and Other ([facility] provided additional history) Critical Care Time Critical Care Time Critical Care Time: Yes Total Critical Care Time: 54 Attestation: I spent 54 minutes of Critical Care Time with this patient. This does not include time spent on separately reported billable procedures. Discharge Plan Discharge Clinical Impression: Anemia, Cancer Patient Disposition: [facility] Transfer Details: Back to [facility] Instructions: Anemia (ED) Additional Instructions: Your work up today showed a mild anemia with a hemoglobin of 7.3 and a hct of 24.3 for which you were given a unit of packed red blood cells. Your repeat hgb was 7.9 and hct of 25.5. Your oncologist is recommending palliative care - please discuss this with your healthcare proxy, Rosendo. Follow up with your primary care provider. Return to the emergency department immediately if your symptoms worsen or if you develop any numbness, tingling, dizziness, shortness of breath, difficulty breathing, chest pain, blurry vision, loss of vision, nausea, vomiting, abdominal pain, fever, chills, back pain, or any other complaints. Please see the information below about our Patient Portal. If you are not yet enrolled in the [facility] Patient Portal, you will receive an enrollment email invitation following your visit to any [facility] setting. You may also self-enroll in the Patient Portal by visiting our website: [email or web address] The following information is required to access the Patient Portal: - Your [facility] Medical Record Number - Your personal home email address (must match what is in your electronic medical record, Registration staff can assist with this) - Name - Date of Capabilities of the Patient Portal: - Message some providers - View upcoming appointments - Access your health summary, medical history, and visit history - View current conditions and allergies - View procedure and lab results - View your medications, including guidelines, side effects, and precautions - Complete pre-appointment questionnaires requested by your provider - Ready summary reports of your office visits and procedures To access the Patient Portal Mobile Nicky, follow these directions: - Search [employer] in the Nicky Store or mytrax Store - Download the Nicky - Search for [facility] - Enter your login/password Prescriptions: No Action atorvastatin 80 mg Tablet 80 mg PO BEDTIME omega-3 fatty acids 1,000 mg Capsule 2,000 mg PO BID@0900,1700 polyethylene glycol 3350 17 gram Powder In Packet 17 g PO DAILY PRN (Reason: Constipation) sucralfate 1 gram Tablet 1 g PO BID@0900,1700 divalproex [Depakote] 500 mg Tablet,Delayed Release (Dr/Ec) 1,500 mg PO BEDTIME citalopram 20 mg Tablet 20 mg PO BEDTIME pantoprazole 40 mg Tablet,Delayed Release (Dr/Ec) 40 mg PO DAILY metformin 1,000 mg Tablet 1,000 mg PO BID@0900,1700 clozapine 25 mg Tablet 25 mg PO DAILY bupropion HCl 300 mg Tablet Extended Release 24 Hr 300 mg PO DAILY clozapine 50 mg Tablet 50 mg PO BEDTIME clozapine 200 mg Tablet 200 mg PO BEDTIME prednisone 20 mg Tablet 40 mg PO DAILY 5 Days Qty: 0 0RF doxycycline monohydrate 100 mg Capsule 100 mg PO Q12H 3 Days Qty: 0 0RF Referrals: [facility] Family Medicine [Provider Group] (Call to establish and follow up with a primary care provider. If you already have a primary care provider, please follow up with them.) [facility] Primary Care, [place] [Provider Group] (Call to establish and follow up with a primary care provider. If you already have a primary care provider, please follow up with them.) [facility] Primary Care, Jeff [Provider Group] (Call to establish and follow up with a primary care provider. If you already have a primary care provider, please follow up with them.) [facility] Primary Care, STACY [Provider Group] (Call to establish and follow up with a primary care provider. If you already have a primary care provider, please follow up with them.) [facility] Primary Care, Juni Glass [Provider Group] (Call to establish and follow up with a primary care provider. If you already have a primary care provider, please follow up with them.) Print Language: Azeri
[2024-09-18 11:45] LABS: MANUAL DIFF FLAG NO
[2024-09-18 11:47] LABS: Basophils Percent Auto 0.4 % (0-2); Eosinophils Absolute Auto 0.3 X10*3/uL (0.0-0.4); Eosinophils Percent Auto 3.5 % (0-4); Hematocrit 24.3 % (42.0-52.0); Hemoglobin 7.3 g/dl (14.0-18.0); Imm Gran Abs Auto 0.18 X10*3/uL (0.00-0.03); Imm Gran Pct Auto 1.9 % (0.0-0.4); Lymphocytes Absolute Auto 1.4 X10*3/uL (1.2-4.9); Lymphocytes Percent Auto 13.9 % (20-40); Mean Corpuscular Hemoglobin 24.5 pg (27.0-33.0); Mean Corpuscular Volume 81.5 fL (80.0-98.0); Mean Platelet Volume 9.2 fL (9.4-12.4); Monocytes Absolute Auto 0.8 X10*3/uL (0.1-1.2); Monocytes Percent Auto 8.6 % (2-11); Neutrophils Absolute Auto 6.9 x10*3/uL (2.0-8.3); Neutrophils Percent Auto 71.7 % (45-73); Platelet Count 398 X10*3/uL (160-400); Red Blood Count 2.98 X10*6/uL (4.60-5.80); Red Cell Distribution Width 16.6 % (11.0-16.0); White Blood Count 9.7 X10*3/uL (4.8-10.8)
[2024-09-18 11:59] LABS: Prothrombin Time 11.5 SEC (10.9-12.4)
[2024-09-18 12:06] LABS: Alanine Aminotransferase < 6 U/L (0-40); Albumin Level 3.2 g/dL (3.5-5.0); Alkaline Phosphatase 58 U/L (39-117); Anion Gap 14 (12-20); Aspartate Amino Transferase 20 U/L (5-37); Bilirubin Total 0.2 mg/dL (0.0-1.0); Blood Urea Nitrogen 20 mg/dL (9-16); Calcium 8.3 mg/dL (8.4-10.2); Carbon Dioxide 27 mmol/L (22-29); Chloride 108 mmol/L (96-108); Creatinine Clr Calc Pharmacy 44.4; Estimated Glomerular Filt Rate 40; Glucose Random 139 mg/dL (60-115); Potassium 4.3 mmol/L (3.3-5.1); Sodium 145 mmol/L (135-145)
--- NOTE | 2024-09-18 13:19 | PC.NURSE ---
Attempted to place second IV but was unsuccessful
[2024-09-18 13:36] LABS: Appearance Urine Turbid; Glucose Urine UA Negative (Negative); Leukocyte Esterase Urine Moderate (2+) (Negative); UMIC TRIGGER UACC YES; Urine Blood Large (3+) (Negative); Urine Ketones 15 mg/dL (Negative); Urine Protein 300 (3+) mg/dL (Neg-Trace)
[2024-09-18 13:41] LABS: Color Urine Red
[2024-09-18 13:42] LABS: Bacteria Urine 2+ (None Seen); Hyaline Casts Urine 0-2 /LPF (0-2); Squamous Epithelial Cell Urine 0-2 /HPF (0-2); UACC Culture Trigger YES; WBC Urine >50 /HPF (0-5)
[2024-09-18 13:43] LABS: RBC Urine >20 /HPF (0-2)
--- OUTSIDE RECORDS SUMMARY | 2024-09-18 13:45 | XMS_ITS | Encounter Summary ---
Author Organization [employer] Address [address] [place] [address] Care Team Providers Care Gambling Floor Supervisor Name Role Phone John Durán MD Primary Care Provider [phone] Encounter Details Date Type Department Care Team (Late st Contact Info) Description 08/12/2024 Lab Requisition [facility] Lab [address] [place] [address] John Durán MD [address] [place] [address] Anemia, unspecified Social History Tobacco Use Types Packs/Day Years Used Date Smoking Tobacco: Never Assessed Sex and Gender Information Value Date Recorded Sex Assigned at Not on file Legal Sex Male 8:13 PM EST Gender Identity Not on file Sexual Orientation Not on file documented as of this encounter Plan of Treatment Not on file documented as of this encounter Procedures Procedure Name Priority Date/Time Associated Diagnosis Comments COMPLETE BLOOD COUNT Routine 08/12/2024 4:42 AM EDT Anemia, unspecified documented in this encounter Results * (ABNORMAL) Complete blood count (08/12/2024 4:42 AM EDT) WBC 10.3 4.8 - 10.8 K/[facility] LAB HEMETOLOGY METHOD 08/12/2024 12:30 PM EDT [facility] RBC 4.00(L) 4.50 - 5.50 M/[facility] LAB HEMETOLOGY METHOD 08/12/2024 12:30 PM EDT [facility] LAB Hemoglobin 10.2(L) 13.5 - 17.5 g/dL LAB HEMETOLOGY METHOD 08/12/2024 12:30 PM EDT [facility] LAB Hematocrit 33.5(L) 42.0 - 54.0 % LAB HEMETOLOGY METHOD 08/12/2024 12:30 PM EDT [facility] MCV 83.5 79.0 - 98.0 FL LAB HEMETOLOGY METHOD 08/12/2024 12:30 PM EDT [facility] LAB MCH 25.4(L) 27.0 - 32.0 pcg LAB HEMETOLOGY METHOD 08/12/2024 12:30 PM EDT [facility] MCHC 30.4(L) 32.0 - 37.0 g/dL LAB HEMETOLOGY METHOD 08/12/2024 12:30 PM EDT [facility] LAB RDW 15.3(H) 11.0 - 15.0 % LAB HEMETOLOGY METHOD 08/12/2024 12:30 PM EDT [facility] LAB Platelets 355 130 - 400 K/mcL LAB HEMETOLOGY METHOD 08/12/2024 12:30 PM EDT [facility] LAB MPV 10.0 7.0 - 11.0 FL LAB HEMETOLOGY METHOD 08/12/2024 12:30 PM EDT [facility] NRBC 0.0 <1.0 % LAB HEMETOLOGY METHOD 08/12/2024 12:30 PM EDT [facility] LAB NRBC Absolute 0.00 <0.10 K/mcL LAB HEMETOLOGY METHOD 08/12/2024 12:30 PM EDT [facility] Blood Venous blood specimen / Unknown Venipuncture / Unknown 08/12/2024 4:42 AM EDT 08/12/2024 10:38 AM EDT us John Durán MD LAB BLOOD ORDERABLES Final R esult [facility] [address] [place] [address], documented in this encounter Visit Diagnoses Diagnosis Anemia, unspecified documented in this encounter Care Teams Gambling Floor Supervisor Relationship Specialty Start Date End Date John Durán MD [address] [place] [address] PCP - General Family Medicine 03/18/24 documented as of this encounter
--- OUTSIDE RECORDS SUMMARY | 2024-09-18 13:45 | XMS_ITS | Encounter Summary ---
Author Organization [employer] Address [address] [place] [address] Care Team Providers Care Policy Value Calculator Name Role Phone John Durán MD Primary Care Provider [phone] Encounter Details Date Type Department Care Team (Latest Contact Info) Description 08/09/2024 Lab Requisition [facility] Lab [address] [place] [address] John Durán MD [facility] [place] [address] Type 2 diabetes mellitus without complications (CMS/HCC V24, CMS/HCC V28); Anemia, unspecified Social History Tobacco Use Types [...] Procedure Name Priority Date/Time Associated Diagnosis Comments BASIC METABOLIC PANEL Routine 08/09/2024 6:22 AM EDT Type 2 diabetes mellitus without complications (CMS/HCC V24, CMS/HCC V28) Anemia, unspecified documented in this encounter Results * (ABNORMAL) Basic metabolic panel (08/09/2024 6:22 AM EDT) Sodium 142 133 - 145 mmol/L LAB CHEMISTRY METHOD 08/09/2024 12:42 PM T [facility] Potassium 4.4 3.5 - 5.5 mmol/L LAB CHEMISTRY METHOD 08/09/2024 12:42 PM T [facility] LAB Comment:Hemolysis present Chloride 108 96 - 110 mmol/L LAB CHEMISTRY METHOD 08/09/2024 12:42 PM [facility] CO2 22 21 - 32 mmol/L LAB CHEMISTRY METHOD 08/09/2024 12:42 PM [facility] Anion Gap 12(H) 3 - 11 LAB CHEMISTRY METHOD 08/09/2024 12:42 PM [facility] LAB Glucose 90 70 - 100 mg/dL LAB CHEMISTRY METHOD 08/09/2024 12:42 PM [facility] BUN 18 5 - 25 mg/dL LAB CHEMISTRY METHOD 08/09/2024 12:42 PM [facility] Creatinine 1.54(H) 0.70 - 1.30 mg/dL LAB CHEMISTRY METHOD 08/09/2024 12:42 PM [facility] LAB eGFR 49(L) >=60 mL/min/1. 73m2 LAB CHEMISTRY METHOD 08/09/2024 12:42 PM [facility] LAB Comment:Calculation based on the??Chronic Kidney Disease Epidemiology Collaboration (CKD-EPI) equation refit??without adjustment for race. BUN/Creatinine Ratio 11.7 LAB CHEMISTRY METHOD 08/09/2024 12:42 PM [facility] Calcium 8.0(L) 8.5 - 10.5 mg/dL LAB CHEMISTRY METHOD 08/09/2024 12:42 PM [facility] Blood Venous blood specimen / Unknown Venipuncture / Unknown 08/09/2024 6:22 AM EDT 08/09/2024 10:37 AM EDT us John Durán MD LAB BLOOD ORDERABLES Final R esult [facility] [address] [place] [address], documented in this encounter Visit Diagnoses Diagnosis Type 2 diabetes mellitus without complications (CMS/HCC V24, CMS/HCC V28) Anemia, unspecified documented in this encounter Care Teams Policy Value Calculator Relationship Specialty Start Date End Date John Durán MD [address] [place] [address] PCP - General Family Medicine 03/18/24 documented as of this encounter
--- OUTSIDE RECORDS SUMMARY | 2024-09-18 13:45 | XMS_ITS | Encounter Summary ---
Author Organization [employer] Address [address] [place] [address] Care Team Providers Care Assistant Signal Maintainer Name Role Phone John Durán MD Primary Care Provider [phone]- [phone] Encounter Details Date Type Department Care Team (Latest Contact Info) Description 07/24/2024 Lab Requisition [facility] - Main Lab [address] [place] [address] John Durán MD [facility] [place] [address] Anemia, unspecified; Type 2 diabetes mellitus without complications (CMS/HCC V24, CMS/HCC V28) Social History Tobacco Use Types Packs/Day Years [...] Associated Diagnosis Comments COMPLETE BLOOD COUNT Routine 07/24/2024 5:33 AM EDT Anemia, unspecified Type 2 diabetes mellitus without complications (CMS/HCC) BASIC METABOLIC PANEL Routine 07/24/2024 5:33 AM EDT Anemia, unspecified Type 2 diabetes mellitus without complications (CMS/HCC) documented in this encounter Results * (ABNORMAL) Basic metabolic panel (07/24/2024 5:33 AM EDT) Sodium 142 133 - 145 mmol/L LAB CHEMISTRY METHOD 07/24/2024 11:24 AM EDT [facility] ([facility]) [facility] Potassium 4.1 3.5 - 5.5 mmol/L LAB [facility] Chloride 106 96 - 110 mmol/L LAB CHEMISTRY METHOD 07/24/2024 11:24 AM [facility] CO2 28 21 - 32 mmol/L LAB CHEMISTRY METHOD 07/24/2024 11:24 AM [facility] Anion Gap 8 3 - 11 LAB CHEMISTRY METHOD 07/24/2024 11:24 AM [facility] Glucose 90 70 - 100 mg/dL LAB CHEMISTRY METHOD 07/24/2024 11:24 AM [facility] BUN 19 5 - 25 mg/dL LAB CHEMISTRY METHOD 07/24/2024 11:24 AM [facility] Creatinine 1.40(H) 0.70 - 1.30 mg/dL LAB CHEMISTRY METHOD 07/24/2024 11:24 AM [facility] eGFR 54(L) >=60 mL/min/1. 73m2 LAB CHEMISTRY METHOD 07/24/2024 11:24 AM [facility] Comment:Calculation based on the??Chronic Kidney Disease Epidemiology Collaboration (CKD-EPI) equation refit??without adjustment for race. BUN/Creatinine Ratio 13.6 LAB CHEMISTRY METHOD 07/24/2024 11:24 AM [facility] Calcium 8.3(L) 8.5 - 10.5 mg/dL LAB CHEMISTRY METHOD 07/24/2024 11:24 AM [facility] Blood Venous blood specimen / Unknown Venipuncture / Unknown 07/24/2024 5:33 AM EDT 07/24/2024 10:07 AM EDT us John Durán MD LAB BLOOD ORDERABLES Final R esult [facility] [address] [place] [address], * (ABNORMAL) Complete blood count (07/24/2024 5:33 AM EDT) [facility] WBC 9.9 4.8 - 10.8 K/mcL LAB HEMETOLOGY METHOD 07/24/2024 10:52 AM [facility] RBC 4.10(L) 4.50 - 5.50 M/mcL LAB HEMETOLOGY METHOD 07/24/2024 10:52 AM [facility] Hemoglobin 10.7(L) 13.5 - 17.5 g/dL LAB HEMETOLOGY METHOD 07/24/2024 10:52 AM [facility] Hematocrit 35.5(L) 42.0 - 54.0 % LAB HEMETOLOGY METHOD 07/24/2024 10:52 AM [facility] MCV 86.2 79.0 - 98.0 FL LAB HEMETOLOGY METHOD 07/24/2024 10:52 AM [facility] MCH 26.0(L) 27.0 - 32.0 pcg LAB HEMETOLOGY METHOD 07/24/2024 10:52 AM [facility] MCHC 30.1(L) 32.0 - 37.0 g/dL LAB HEMETOLOGY METHOD 07/24/2024 10:52 AM [facility] RDW 15.8(H) 11.0 - 15.0 % LAB HEMETOLOGY METHOD 07/24/2024 10:52 AM [facility] Platelets 303 130 - 400 K/mcL LAB HEMETOLOGY METHOD 07/24/2024 10:52 AM [facility] MPV 9.9 7.0 - 11.0 FL LAB HEMETOLOGY METHOD 07/24/2024 10:52 AM [facility] NRBC 0.0 <1.0 % LAB HEMETOLOGY METHOD 07/24/2024 10:52 AM [facility] NRBC Absolute 0.00 <0.10 K/mcL LAB HEMETOLOGY METHOD 07/24/2024 10:[address] [facility] Blood Venous blood specimen / Unknown Venipuncture / Unknown 07/24/2024 5:33 AM EDT 07/24/2024 10:07 AM EDT us John Durán MD LAB BLOOD ORDERABLES Final R esult [facility] [address] [place] [address], documented in this encounter Visit Diagnoses Diagnosis Anemia, unspecified Type 2 diabetes mellitus without complications (CMS/HCC V24, CMS/HCC V28) documented in this encounter Care Teams Assistant Signal Maintainer Relationship Specialty Start Date End Date John Durán MD [address] [place] [address] PCP - General Family Medicine 03/18/24 documented as of this encounter
--- OUTSIDE RECORDS SUMMARY | 2024-09-18 13:45 | XMS_ITS | Encounter Summary ---
Author Organization [employer] Address [address] [place] [address] Care Team Providers Care Feed Research Technician Name Role Phone John Durán MD Primary Care Provider [phone] Encounter Details Date Type Department Care Team (Latest Contact Info) Description 08/09/[address] [facility] - Main Lab [address] [place] [address] John Durán MD [facility] [place] [address] Type 2 diabetes mellitus without [...] Associated Diagnosis Comments COMPLETE BLOOD COUNT Routine 08/09/2024 12:16 PM EDT Type 2 diabetes mellitus without complications documented in this encounter Results * (ABNORMAL) Complete blood count (08/09/2024 12:16 PM EDT) WBC 11.8(H) 4.8 - 10.8 K/[facility] LAB HEMETOLOGY METHOD 08/09/2024 1:08 PM EDT [facility] RBC 4.00(L) 4.50 - 5.50 M/[facility] LAB HEMETOLOGY METHOD 08/09/2024 1:08 PM EDT [facility] Hemoglobin 10.1(L) 13.5 - 17.5 g/dL LAB HEMETOLOGY METHOD 08/09/2024 1:08 PM EDT [facility] LAB Hematocrit 32.8(L) 42.0 - 54.0 % LAB HEMETOLOGY METHOD 08/09/2024 1:08 PM EDT [facility] MCV 82.6 79.0 - 98.0 FL LAB HEMETOLOGY METHOD 08/09/2024 1:08 PM EDT [facility] LAB MCH 25.4(L) 27.0 - 32.0 pcg LAB HEMETOLOGY METHOD 08/09/2024 1:08 PM EDT [facility] MCHC 30.8(L) 32.0 - 37.0 g/dL LAB HEMETOLOGY METHOD 08/09/2024 1:08 PM EDT [facility] RDW 15.4(H) 11.0 - 15.0 % LAB HEMETOLOGY METHOD 08/09/2024 1:08 PM EDT [facility] Platelets 332 130 - 400 K/mcL LAB HEMETOLOGY METHOD 08/09/2024 1:08 PM EDT [facility] MPV 9.6 7.0 - 11.0 FL LAB HEMETOLOGY METHOD 08/09/2024 1:08 PM EDT [facility] NRBC 0.0 <1.0 % LAB HEMETOLOGY METHOD 08/09/2024 1:08 PM EDT [facility] NRBC Absolute 0.00 <0.10 K/mcL LAB HEMETOLOGY METHOD 08/09/2024 1:08 PM EDT [facility] Blood Venous blood specimen / Unknown Venipuncture / Unknown 08/09/2024 12:16 PM EDT 08/09/2024 12:45 PM EDT us John Durán MD LAB BLOOD ORDERABLES Final R esult [facility] [address] [place] [address], [place] [phone] documented in this encounter Visit Diagnoses Diagnosis Type 2 diabetes mellitus without complications (CMS/HCC V24, CMS/HCC V28) documented in this encounter Care Teams Feed Research Technician Relationship Specialty Start Date End Date John Durán MD [address] [place] [address] PCP - General Family Medicine 03/18/24 documented as of this encounter
--- OUTSIDE RECORDS SUMMARY | 2024-09-18 13:45 | XMS_ITS | Encounter Summary ---
Author Organization [employer] Address [address] [place] [address] Care Team Providers Care Gta Name Role Phone John Durán MD Primary Care Provider Encounter Details Date Type Department Care Team (Latest Contact Info) Description 05/03/2024 Lab Requisition [facility] - Main Lab [address] [place] [address] John Durán MD [facility] [place] [address] Schizoaffective disorder, unspecified (CMS/[facility] V24, CMS/[facility] V28) Social History Tobacco Use Types Packs/Day [...] Procedure Name Priority Date/Time Associated Diagnosis Comments WBC COUNT WITH ABSOLUTE NEUTROPHIL Routine 05/06/2024 5:10 AM EST Schizoaffective disorder, unspecified ([facility]) documented in this encounter Results * Wbc count with absolute neutrophil (05/06/2024 5:10 AM EST) WBC 9.6 4.8 - 10.8 K/mcL LAB HEMETOLOGY METHOD 05/06/2024 12:[address] [facility] Neutrophils Absolute 5.11 1.50 - 7.00 K/mcL LAB HEMETOLOGY METHOD 05/06/2024 12:[address] [facility] Neutrophils Relative 53.4 % LAB HEMETOLOGY METHOD 05/06/2024 12:[address] [facility] Blood Venous blood specimen / Unknown Venipuncture / Unknown 05/06/2024 5:10 AM EST 05/06/2024 10:42 AM EST John Durán MD LAB BLOOD ORDERABLES Final R esult [facility] ([facility]) [facility] [address] [place] [address], documented in this encounter Visit Diagnoses Diagnosis Schizoaffective disorder, unspecified (CMS/HCC V24, CMS/HCC V28) documented in this encounter Care Teams Gta Relationship Specialty Start Date End Date John Durán MD [address] [place] [address] PCP - General Family Medicine 03/18/24 documented as of this encounter
--- OUTSIDE RECORDS SUMMARY | 2024-09-18 13:45 | XMS_ITS | Encounter Summary ---
Author Organization [employer] Address [address] [place] [address] Care Team Providers Care Fitter And Turner Name Role Phone John Durán MD Primary Care Provider Encounter Details Date Type Department Care Team (Late st Contact Info) Description 09/16/2024 Lab Requisition [facility] - Main Lab [address] [facility] [place] [address] John Durán MD [address] [place] [address] Hypo-osmolality and hyponatremia; Anemia, unspecified Social History Tobacco Use Types Packs/Day Years Used Date Smoking Tobacco: Never Assessed Sex and Gender Information Value Date Recorded Sex Assigned at Not on file Legal Sex Male 8:13 PM EST Gender Identity Not on file Sexual Orientation Not on file documented as of this encounter Plan of Treatment Not on file documented as of this encounter Visit Diagnoses Diagnosis Hypo-osmolality and hyponatremia Anemia, unspecified documented in this encounter Care Teams Fitter And Turner Relationship Specialty Start Date End Date John Durán MD [address] [place] [address] PCP - General Family Medicine 03/18/24 documented as of this encounter
--- OUTSIDE RECORDS SUMMARY | 2024-09-18 13:45 | XMS_ITS | Encounter Summary ---
Author Organization [facility] Address [address] [place] [address] Care Team Providers Care Cassandra Consultant Name Role Phone John Durán MD Primary Care Provider [phone]- [phone] Encounter Details Date Type Department Care Team (Late st Contact Info) Description 04/17/2024 Lab Requisition [facility] - Main Lab [address] [place] [address] John Durán MD [address] [place], [place] [id number] Encounter for therapeutic drug level monitoring Social History Tobacco Use Types Packs/Day Years [...] Procedure Name Priority Date/Time Associated Diagnosis Comments VALPROIC ACID LEVEL, TOTAL Routine 04/18/2024 5:00 AM EST Encounter for therapeutic drug level monitoring documented in this encounter Results * Valproic acid level, total (04/18/2024 5:00 AM EST) Valproic Acid, Total 95 50 - 100 mcg/mL LAB CHEMISTRY METHOD 04/18/2024 8:24 AM EST [facility] Blood Venous blood specimen / Unknown Venipuncture / Unknown 04/18/2024 5:00 AM EST 04/18/2024 7:33 AM EST John Durán MD LAB BLOOD ORDERABLES Final R esult [facility] [address] [place] [address], documented in this encounter Visit Diagnoses Diagnosis Encounter for therapeutic drug level monitoring documented in this encounter Care Teams Cassandra Consultant Relationship Specialty Start Date End Date John Durán MD [address] [place] [address] PCP - General Family Medicine 03/18/24 documented as of this encounter
--- OUTSIDE RECORDS SUMMARY | 2024-09-18 13:45 | XMS_ITS | Encounter Summary ---
Author Organization [employer] Address [address] [place] [address] Care Team Providers Care Ice Seller Name Role Phone John Durán MD Primary Care Provider [phone]- [phone] Encounter Details Date Type Department Care Team (Latest Contact Info) Description 08/29/2024 Lab Requisition [facility] - Main Lab [address] [place] [address] John Durán MD [facility] [place] [address] Anemia, unspecified; Type 2 diabetes mellitus without complications (CMS/[facility] V24, CMS/[facility] V28) Social History Tobacco Use Types Packs/Day [...] Associated Diagnosis Comments COMPLETE BLOOD COUNT Routine 08/30/2024 5:27 AM EDT Anemia, unspecified Type 2 diabetes mellitus without complications (CMS/HCC V24, CMS/[facility] V28) BASIC METABOLIC PANEL Routine 08/30/2024 5:27 AM EDT Anemia, unspecified Type 2 diabetes mellitus without complications (CMS/HCC V24, CMS/HCC V28) documented in this encounter Results * (ABNORMAL) Basic metabolic panel (08/30/2024 5:27 AM EDT) Sodium 142 133 - 145 mmol/L LAB CHEMISTRY METHOD 08/30/2024 9:57 AM EDT [facility] ([facility] Potassium 4.2 3.5 - 5.5 mmol/L LAB CHEMISTRY METHOD 08/30/2024 9:57 AM [facility] LAB Chloride 107 96 - 110 mmol/L LAB CHEMISTRY METHOD 08/30/2024 9:57 AM [facility] LAB CO2 28 21 - 32 mmol/L LAB CHEMISTRY METHOD 08/30/2024 9:57 AM [facility] LAB Anion Gap 7 3 - 11 LAB CHEMISTRY METHOD 08/30/2024 9:57 AM [facility] Glucose 94 70 - 100 mg/dL LAB CHEMISTRY METHOD 08/30/2024 9:57 AM [facility] BUN 18 5 - 25 mg/dL LAB CHEMISTRY METHOD 08/30/2024 9:57 AM [facility] Creatinine 1.61(H) 0.70 - 1.30 mg/dL LAB CHEMISTRY METHOD 08/30/2024 9:57 AM [facility] LAB eGFR 46(L) >=60 mL/min/1. 73m2 LAB CHEMISTRY METHOD 08/30/2024 9:57 AM [facility] LAB Comment:Calculation based on the??Chronic Kidney Disease Epidemiology Collaboration (CKD-EPI) equation refit??without adjustment for race. BUN/Creatinine Ratio 11.2 LAB CHEMISTRY METHOD 08/30/2024 9:57 AM [facility] Calcium 8.4(L) 8.5 - 10.5 mg/dL LAB CHEMISTRY METHOD 08/30/2024 9:57 AM [facility] Blood Venous blood specimen / Unknown Venipuncture / Unknown 08/30/2024 5:27 AM EDT 08/30/2024 9:08 AM EDT us John Durán MD LAB BLOOD ORDERABLES Final R esult [facility] [address] [place] [address], * (ABNORMAL) Complete blood count (08/30/2024 5:27 AM EDT) [facility] Signature WBC 12.8(H) 4.8 - 10.8 K/mcL LAB HEMETOLOGY METHOD 08/30/2024 9:37 AM [facility] RBC 3.40(L) 4.50 - 5.50 M/mcL LAB HEMETOLOGY METHOD 08/30/2024 9:37 AM [facility] Hemoglobin 8.8(L) 13.5 - 17.5 g/dL LAB HEMETOLOGY METHOD 08/30/2024 9:37 AM [facility] LAB Hematocrit 28.3(L) 42.0 - 54.0 % LAB HEMETOLOGY METHOD 08/30/2024 9:37 AM [facility] LAB MCV 82.5 79.0 - 98.0 FL LAB HEMETOLOGY METHOD 08/30/2024 9:37 AM [facility] LAB MCH 25.7(L) 27.0 - 32.0 pcg LAB HEMETOLOGY METHOD 08/30/2024 9:37 AM [facility] MCHC 31.1(L) 32.0 - 37.0 g/dL LAB HEMETOLOGY METHOD 08/30/2024 9:37 AM [facility] RDW 15.9(H) 11.0 - 15.0 % LAB HEMETOLOGY METHOD 08/30/2024 9:37 AM [facility] LAB Platelets 356 130 - 400 K/mcL LAB HEMETOLOGY METHOD 08/30/2024 9:37 AM [facility] MPV 9.7 7.0 - 11.0 FL LAB HEMETOLOGY METHOD 08/30/2024 9:37 AM [facility] NRBC 0.0 <1.0 % LAB HEMETOLOGY METHOD 08/30/2024 9:37 AM [facility] NRBC Absolute 0.00 <0.10 K/mcL LAB HEMETOLOGY METHOD 08/30/2024 9:37 AM EDT [facility] Blood Venous blood specimen / Unknown Venipuncture / Unknown 08/30/2024 5:27 AM EDT 08/30/2024 9:08 AM EDT us John Durán MD LAB BLOOD ORDERABLES Final R esult [facility] [address] [place] [address], documented in this encounter Visit Diagnoses Diagnosis Anemia, unspecified Type 2 diabetes mellitus without complications (CMS/HCC V24, CMS/HCC V28) documented in this encounter Care Teams Ice Seller Relationship Specialty Start Date End Date John Durán MD [address] [place] [address] PCP - General Family Medicine 03/18/24 documented as of this encounter
--- OUTSIDE RECORDS SUMMARY | 2024-09-18 13:45 | XMS_ITS | Encounter Summary ---
Author Organization [employer] Address [address] [place] [address] Care Team Providers Care Patient Navigator Name Role Phone John Durán MD Primary Care Provider [phone] Encounter Details Date Type Department Care Team (Latest Contact Info) Description 07/27/2024 Lab Requisition [facility] - Main Lab [address] [place] [address] John Durán MD [facility] [place] [address] Schizoaffective disorder, unspecified (CMS/[facility] V24, CMS/[facility] V28) Social History Tobacco Use Types [...] Comments WBC COUNT WITH ABSOLUTE NEUTROPHIL Routine 07/29/2024 4:53 AM EDT Schizoaffective disorder, unspecified documented in this encounter Results * Wbc count with absolute neutrophil (07/29/2024 4:53 AM EDT) WBC 9.6 4.8 - 10.8 K/mcL LAB HEMETOLOGY METHOD 07/29/2024 11:49 AM EDT [facility] Neutrophils Absolute 5.76 1.50 - 7.00 K/mcL LAB HEMETOLOGY METHOD 07/29/2024 11:49 AM EDT [facility] Neutrophils Relative 60.2 % LAB HEMETOLOGY METHOD 07/29/2024 11:49 AM EDT [facility] Blood Venous blood specimen / Unknown Venipuncture / Unknown 07/29/2024 4:53 AM EDT 07/29/2024 11:07 AM EDT John Durán MD LAB BLOOD ORDERABLES Final R esult [facility] ([facility]) [facility] [address] [place] [address], documented in this encounter Visit Diagnoses Diagnosis Schizoaffective disorder, unspecified (CMS/HCC V24, CMS/HCC V28) documented in this encounter Care Teams Patient Navigator Relationship Specialty Start Date End Date John Durán MD [address] [place] [address] PCP - General Family Medicine 03/18/24 documented as of this encounter
--- OUTSIDE RECORDS SUMMARY | 2024-09-18 13:45 | XMS_ITS | Encounter Summary ---
Author Organization [employer] Address [address] [place] [address] Care Team Providers Care Senior Clinical Research Scientist Name Role Phone John Durán MD Primary Care Provider [phone]- [phone] Encounter Details Date Type Department Care Team (Latest Contact Info) Description 04/06/2024 Lab Requisition [facility] - Main Lab [address] [place] [address] John Durán MD [address] [place] [address] Schizoaffective disorder, unspecified ([facility] [...] Comments WBC COUNT WITH ABSOLUTE NEUTROPHIL Routine 04/08/2024 5:30 AM EST Schizoaffective disorder, unspecified ([facility]) documented in this encounter Results * Wbc count with absolute neutrophil (04/08/2024 5:30 AM EST) WBC 7.7 4.8 - 10.8 K/mcL LAB HEMETOLOGY METHOD 04/08/2024 11:46 AM EST [facility] Neutrophils Absolute 4.20 1.50 - 7.00 K/mcL LAB HEMETOLOGY METHOD 04/08/2024 11:46 AM EST [facility] Neutrophils Relative 54.6 % LAB HEMETOLOGY METHOD 04/08/2024 11:46 AM EST [facility] Blood Venous blood specimen / Unknown Venipuncture / Unknown 04/08/2024 5:30 AM EST 04/08/2024 10:28 AM EST John Durán MD LAB BLOOD ORDERABLES Final R esult [facility] ([facility]) [facility] [address] [place] [address], documented in this encounter Visit Diagnoses Diagnosis Schizoaffective disorder, unspecified (CMS/HCC V24, CMS/HCC V28) documented in this encounter Care Teams Senior Clinical Research Scientist Relationship Specialty Start Date End Date John Durán MD [address] [place] [address] PCP - General Family Medicine 03/18/24 documented as of this encounter
--- OUTSIDE RECORDS SUMMARY | 2024-09-18 13:45 | XMS_ITS | Clinical Summary ---
Author Organization [address] Address [address] [place] [address] Phone Care Team Providers Care Door Manager Name Role Phone John Durán MD Primary Care Provider [phone] Encounters Date Type Department Care Team Description 09/17/2024 Lab Requisition [facility] [address] [place] [address] John Durán MD Anemia, unspecified 09/17/2024 Lab Requisition [facility] [address] [place] [address] John Durán MD Hypo-osmolality and hyponatremia; Anemia, unspecified 09/16/2024 Lab Requisition [facility] [address] [place] [address] John Durán MD Hypo-osmolality and hyponatremia; Anemia, unspecified 09/09/2024 Lab Requisition [facility] [address] [place] [address] John Durán MD Hypo-osmolality and hyponatremia; Anemia, unspecified 09/02/2024 Lab Requisition [facility] [address] [place] [address] John Durán MD Hypo-osmolality and hyponatremia; Anemia, unspecified 08/29/2024 Lab Requisition [facility] [address] [place] [address] John Durán MD Anemia, unspecified; Type 2 diabetes mellitus without complications (CMS/HCC V24, CMS/HCC V28) 08/28/2024 Lab Requisition [facility] [address] [place] [phone] John Durán MD Unspecified hydronephrosis 08/26/2024 Lab Requisition [facility] [address] [place] [phone] John Durán MD Anemia, unspecified; Hypo-osmolality and hyponatremia 08/22/2024 Lab Requisition [facility] [address] [place] [phone] John Durán MD Anemia, unspecified; Type 2 diabetes mellitus without complications ([facility] V24, [facility] V28) 08/15/2024 Lab Requisition [facility] [address] [place] [phone] John Durán MD Anemia, unspecified; Type 2 diabetes mellitus without complications ([facility] V24, [facility] V28) 08/12/2024 Lab Requisition [facility] [address] [place] [phone] John Durán MD Anemia, unspecified 08/09/2024 Lab Requisition [facility] [address] [place] [phone] John Durán MD Type 2 diabetes mellitus without complications ([facility] V24, [facility] V28) 08/09/2024 Lab Requisition [facility] [address] [place] [phone] John Durán MD Type 2 diabetes mellitus without complications ([facility] V24, [facility] V28); Anemia, unspecified 07/27/2024 Lab Requisition [facility] [address] [place] [phone] John Durán MD Schizoaffective disorder, unspecified ([facility] V24, [facility] V28) 07/24/2024 Lab Requisition [facility] [address] [place] [phone] John Durán MD Anemia, unspecified; Type 2 diabetes mellitus without complications ([facility] V24, [facility] V28) 07/02/2024 Lab Requisition [facility] [address] [place] [address] John Durán MD Schizoaffective disorder, unspecified ([facility] V24, [facility] V28) 06/29/2024 Lab Requisition [facility] [address] [place] [address] John Durán MD Schizoaffective disorder, unspecified ([facility] V24, [facility] V28) from Last 3 Months Social History Tobacco Use Types Packs/Day Years Used Date Smoking Tobacco: Never Assessed Sex and Gender Information Value Date Recorded Sex Assigned at Not on file Legal Sex Male 8:13 PM EST Gender Identity Not on file Sexual Orientation Not on file Plan of Treatment Health Maintenance Due Date Last Done Comments Diabetes: Annual Foot Exam 1965 Diabetes: Annual Retina Eye Exam 1965 Zoster Vaccines (1 of 2) 2005 Hepatitis B Vaccines (2 of 3 - 19+ 3-dose series) 01/09/2014 12/12/2013 Pneumococcal Vaccine: 50+ Years (2 of 2 - PCV) 12/12/2014 12/12/2013 DTaP,Tdap,and Td Vaccines (2 - Td or Tdap) 06/30/2018 06/30/2008 Abdominal Aortic Aneurysm (AAA) Screen 06/01/2023 Cholesterol Screening (Lipid Panel) 06/01/2023 Colorectal Cancer Screening: Colonoscopy 06/01/2023 Depression Screening 06/01/2023 Falls Risk Assessment 06/01/2023 Hepatitis C Screening 06/01/2023 Social Influencers of Health Screening 06/01/2023 COVID-19 Vaccine ( season) 2024 Diabetes: Annual Urine Albumin-Creatinine Ratio (uACR) 05/09/2024 Diabetes: Blood Sugar Control Test (HGBA1C) 05/09/2024 Influenza Vaccine (Season Ended) 2025 Diabetes: Annual GFR (Glomerular Filtration Rate) 09/10/2025 09/18/2024, 09/10/2024, 08/30/2024, Additional history exists RSV Immunization Adult Patients (1 - 1-dose 75+ series) 2030 HIB Vaccines Aged Out No longer eligi ble based on patient's age to complete this topic HPV Vaccines Aged Out No longer eligi ble based on patient's age to complete this topic Hepatitis A Vaccines Aged Out No long er eligible based on patient's age to complete this topic IPV Vaccines Aged Out No longer eligi ble based on patient's age to complete this topic MMR Vaccines Aged Out No longer eligi ble based on patient's age to complete this topic Meningococcal ACWY Vaccine Aged Out N o longer eligible based on patient's age to complete this topic Meningococcal B Vaccine Aged Out No l onger eligible based on patient's age to complete this topic RSV Immunization Patients Under 20 months Aged Out No longer eligible based on patient's age to complete this topic Varicella Vaccines Aged Out No longer eligible based on patient's age to complete this topic Procedures Procedure Name Priority Date/Time Associated Diagnosis Comments BASIC METABOLIC PANEL Routine 09/18/2024 6:33 AM EDT Anemia, unspecified VITAMIN B12 AND FOLATE Routine 09/18/2024 6:33 AM EDT Anemia, unspecified FERRITIN Routine 09/18/2024 6:33 AM EDT Anemia, unspecified IRON AND TIBC Routine 09/18/2024 6:33 AM EDT Anemia, unspecified COMPLETE BLOOD COUNT Routine 09/18/2024 6:33 AM EDT Anemia, unspecified BASIC METABOLIC PANEL Routine 09/10/2024 5:48 AM EDT Hypo-osmolality and hyponatremia Anemia, unspecified COMPLETE BLOOD COUNT Routine 09/10/2024 5:48 AM EDT Hypo-osmolality and hyponatremia Anemia, unspecified BASIC METABOLIC PANEL Routine 08/30/2024 5:27 AM EDT Anemia, unspecified Type 2 diabetes mellitus without complications (CMS/HCC V24, CMS/HCC V28) COMPLETE BLOOD COUNT Routine 08/30/2024 5:27 AM EDT Anemia, unspecified Type 2 diabetes mellitus without complications (CMS/HCC V24, CMS/HCC V28) WBC COUNT WITH ABSOLUTE NEUTROPHIL Routine 08/28/2024 6:10 AM EDT Unspecified hydronephrosis BASIC METABOLIC PANEL Routine 08/28/2024 6:10 AM EDT Unspecified hydronephrosis COMPLETE BLOOD COUNT Routine 08/28/2024 6:10 AM EDT Unspecified hydronephrosis BASIC METABOLIC PANEL Routine 08/27/2024 5:16 AM EDT Anemia, unspecified Hypo-osmolality and hyponatremia COMPLETE BLOOD COUNT Routine 08/27/2024 5:16 AM EDT Anemia, unspecified Hypo-osmolality and hyponatremia BASIC METABOLIC PANEL Routine 08/16/2024 5:16 AM EDT Anemia, unspecified Type 2 diabetes mellitus without complications (CMS/HCC V24, CMS/HCC V28) COMPLETE BLOOD COUNT Routine 08/16/2024 5:16 AM EDT Anemia, unspecified Type 2 diabetes mellitus without complications (CMS/HCC V24, CMS/HCC V28) COMPLETE BLOOD COUNT Routine 08/12/2024 4:42 AM EDT Anemia, unspecified COMPLETE BLOOD COUNT Routine 08/09/2024 12:16 PM EDT Type 2 diabetes mellitus without complications BASIC METABOLIC PANEL Routine 08/09/2024 6:22 AM EDT Type 2 diabetes mellitus without complications (CMS/HCC V24, CMS/HCC V28) Anemia, unspecified WBC COUNT WITH ABSOLUTE NEUTROPHIL Routine 07/29/2024 4:53 AM EDT Schizoaffective disorder, unspecified BASIC METABOLIC PANEL Routine 07/24/2024 5:33 AM EDT Anemia, unspecified Type 2 diabetes mellitus without complications (CMS/HCC) COMPLETE BLOOD COUNT Routine 07/24/2024 5:33 AM EDT Anemia, unspecified Type 2 diabetes mellitus without complications (CMS/HCC) CBC WITH AUTO DIFFERENTIAL Routine 07/02/2024 5:25 AM EST Schizoaffective disorder, unspecified (CMS/HCC) CBC AND DIFFERENTIAL Routine 07/02/2024 5:25 AM EST Schizoaffective disorder, unspecified (CMS/HCC) from Last 3 Months Results * Vitamin B12 and folate (09/18/2024 6:33 AM EDT) [facility] Vitamin B-12 421 250 - 900 pcg/mL LAB CHEMISTRY METHOD 09/18/2024 9:27 AM EDT [facility] Folate 9.3 2.8 - 17.0 ng/ml LAB CHEMISTRY METHOD 09/18/2024 9:27 AM T [facility] Blood Venous blood specimen / Unknown Venipuncture / Unknown 09/18/2024 6:33 AM EDT 09/18/2024 8:13 AM EDT John Durán MD LAB BLOOD ORDERABLES Final R esult [facility] [address] [place] [address], * (ABNORMAL) Iron and TIBC (09/18/2024 6:33 AM EDT) [facility] Iron 17(L) 50 - 160 mcg/dL LAB CHEMISTRY METHOD 09/18/2024 9:04 AM EDT [facility] TIBC 263 250 - 450 mcg/dL LAB CHEMISTRY METHOD 09/18/2024 9:04 AM EDT [facility] Iron Saturation 6(L) 20 - 50 % LAB CHEMISTRY METHOD 09/18/2024 9:04 AM [facility] Blood Venous blood specimen / Unknown Venipuncture / Unknown 09/18/2024 6:33 AM EDT 09/18/2024 8:13 AM EDT us John Durán MD LAB BLOOD ORDERABLES Final R esult [facility] [address] [place] [address], [place] [phone] * (ABNORMAL) Complete blood count (09/18/2024 6:33 AM EDT) Only the most recent of9 resultswithin the time period is included. WBC 9.7 4.8 - 10.8 K/mcL LAB HEMETOLOGY METHOD 09/18/2024 10:12 AM [facility] RBC 2.50(L) 4.50 - 5.50 M/mcL LAB HEMETOLOGY METHOD 09/18/2024 10:12 AM [facility] Hemoglobin 6.2(LL) 13.5 - 17.5 g/dL LAB HEMETOLOGY METHOD 09/18/2024 10:12 AM [facility] Hematocrit 21.3(L) 42.0 - 54.0 % LAB HEMETOLOGY METHOD 09/18/2024 10:12 AM [facility] MCV 85.8 79.0 - 98.0 FL LAB HEMETOLOGY METHOD 09/18/2024 10:12 AM [facility] MCH 24.9(L) 27.0 - 32.0 pcg LAB HEMETOLOGY METHOD 09/18/2024 10:12 AM [facility] MCHC 29.0(L) 32.0 - 37.0 g/dL LAB HEMETOLOGY METHOD 09/18/2024 10:12 AM EDT [facility] RDW 16.4(H) 11.0 - 15.0 % LAB HEMETOLOGY METHOD 09/18/2024 10:12 AM EDT [facility] Platelets 366 130 - 400 K/mcL LAB HEMETOLOGY METHOD 09/18/2024 10:12 AM EDT [facility] MPV 10.0 7.0 - 11.0 FL LAB HEMETOLOGY METHOD 09/18/2024 10:12 AM EDT [facility] NRBC 0.0 <1.0 % LAB HEMETOLOGY METHOD 09/18/2024 10:12 AM EDT [facility] NRBC Absolute 0.00 <0.10 K/mcL LAB HEMETOLOGY METHOD 09/18/2024 10:12 AM EDT [facility] Blood Venous blood specimen / Unknown Venipuncture / Unknown 09/18/2024 6:33 AM EDT 09/18/2024 8:14 AM EDT John Durán MD LAB BLOOD ORDERABLES Final R esult [facility] [address] [place] [address], * (ABNORMAL) Ferritin (09/18/2024 6:33 AM EDT) Ferritin 12(L) 26 - 388 ng/mL LAB CHEMISTRY METHOD 09/18/2024 9:27 AM EDT [facility] Blood Venous blood specimen / Unknown Venipuncture / Unknown 09/18/2024 6:33 AM EDT 09/18/2024 8:13 AM EDT John Durán MD LAB BLOOD ORDERABLES Final R esult [facility] [address] [place] [address], * (ABNORMAL) Basic metabolic panel (09/18/2024 6:33 AM EDT) Only the most recent of8 resultswithin the time period is included. Sodium 146(H) 133 - 145 mmol/L LAB CHEMISTRY METHOD 09/18/2024 9:04 AM [facility] Potassium 4.5 3.5 - 5.5 mmol/L LAB CHEMISTRY METHOD 09/18/2024 9:04 AM [facility] Chloride 111(H) 96 - 110 mmol/L LAB CHEMISTRY METHOD 09/18/2024 9:04 AM [facility] CO2 29 21 - 32 mmol/L LAB CHEMISTRY METHOD 09/18/2024 9:04 AM [facility] Anion Gap 6 3 - 11 LAB CHEMISTRY METHOD 09/18/2024 9:04 AM [facility] Glucose 91 70 - 100 mg/dL LAB CHEMISTRY METHOD 09/18/2024 9:04 AM [facility] BUN 20 5 - 25 mg/dL LAB CHEMISTRY METHOD 09/18/2024 9:04 AM [facility] Creatinine 1.63(H) 0.70 - 1.30 mg/dL LAB CHEMISTRY METHOD 09/18/2024 9:04 AM [facility] eGFR 45(L) >=60 mL/min/1. 73m2 LAB CHEMISTRY METHOD 09/18/2024 9:04 AM [facility] Comment:Calculation based on the Chronic Kidney Disease Epidemiology Collaboration (CKD-EPI) equation refit without adjustment for race. BUN/Creatinine Ratio 12.3 LAB CHEMISTRY METHOD 09/18/2024 9:04 AM [facility] Calcium 8.4(L) 8.5 - 10.5 mg/dL LAB CHEMISTRY METHOD 09/18/2024 9:04 AM EDT [facility] Blood Venous blood specimen / Unknown Venipuncture / Unknown 09/18/2024 6:33 AM EDT 09/18/2024 8:13 AM EDT John Durán MD LAB BLOOD ORDERABLES Final R esult Performing Organization Address [facility]/ZIP Co de Phone Number [facility] [address] [place] [address], [place] [phone] * (ABNORMAL) Wbc count with absolute neutrophil (08/28/2024 6:10 AM EDT) Only the most recent of2 resultswithin the time period is included. WBC 14.6(H) 4.8 - 10.8 K/mcL LAB HEMETOLOGY METHOD 08/28/2024 5:05 PM EDT [facility] Neutrophils Absolute 10.32(H) 1.50 - 7.00 K/mcL LAB HEMETOLOGY METHOD 08/28/2024 5:05 PM EDT [facility] Neutrophils Relative 71.1 % LAB HEMETOLOGY METHOD 08/28/2024 5:05 PM EDT [facility] Blood Venous blood specimen / Unknown Venipuncture / Unknown 08/28/2024 6:10 AM EDT 08/28/2024 9:42 AM EDT John Durán MD LAB BLOOD ORDERABLES Final R esult [facility] [address] [place] [address], [place] [phone] * (ABNORMAL) CBC auto differential (07/02/2024 5:25 AM EST) WBC 9.2 4.8 - 10.8 K/mcL LAB HEMETOLOGY METHOD 07/02/2024 12:21 PM EST [facility] RBC 3.60(L) 4.50 - 5.50 M/mcL LAB HEMETOLOGY METHOD 07/02/2024 12:21 PM [facility] Hemoglobin 9.5(L) 13.5 - 17.5 g/dL LAB HEMETOLOGY METHOD 07/02/2024 12:21 PM [facility] Hematocrit 32.0(L) 42.0 - 54.0 % LAB HEMETOLOGY METHOD 07/02/2024 12:21 PM [facility] MCV 89.6 79.0 - 98.0 FL LAB HEMETOLOGY METHOD 07/02/2024 12:21 PM [facility] MCH 26.6(L) 27.0 - 32.0 pcg LAB HEMETOLOGY METHOD 07/02/2024 12:21 PM [facility] MCHC 29.7(L) 32.0 - 37.0 g/dL LAB HEMETOLOGY METHOD 07/02/2024 12:21 PM [facility] RDW 16.3(H) 11.0 - 15.0 % LAB HEMETOLOGY METHOD 07/02/2024 12:21 PM [facility] Platelets 284 130 - 400 K/mcL LAB HEMETOLOGY METHOD 07/02/2024 12:21 PM [facility] MPV 9.7 7.0 - 11.0 FL LAB HEMETOLOGY METHOD 07/02/2024 12:21 PM [facility] NRBC 0.0 <1.0 % LAB HEMETOLOGY METHOD 07/02/2024 12:21 PM [facility] NRBC Absolute 0.00 <0.10 K/mcL LAB HEMETOLOGY METHOD 07/02/2024 12:21 PM [facility] Neutrophils Relative 54.9 % LAB HEMETOLOGY METHOD 07/02/2024 12:21 PM [facility] Lymphocytes Relative 27.1 % LAB HEMETOLOGY METHOD 07/02/2024 12:21 PM [facility] Monocytes Relative 12.0 % LAB HEMETOLOGY METHOD 07/02/2024 12:21 PM [facility] Eosinophils Relative 1.7 % LAB HEMETOLOGY METHOD 07/02/2024 12:21 PM [facility] Basophils Relative 0.5 % LAB HEMETOLOGY METHOD 07/02/2024 12:21 PM [facility] Immature Granulocytes Relative 3.8 % LAB HEMETOLOGY METHOD 07/02/2024 12:21 PM [facility] Neutrophils Absolute 5.07 1.50 - 7.00 K/mcL LAB HEMETOLOGY METHOD 07/02/2024 12:21 PM [facility] Lymphocytes Absolute 2.50 1.00 - 5.00 K/mcL LAB HEMETOLOGY METHOD 07/02/2024 12:21 PM [facility] Monocytes Absolute 1.11(H) 0.20 - 1.00 K/mcL LAB HEMETOLOGY METHOD 07/02/2024 12:21 PM [facility] Eosinophils Absolute 0.16 0.00 - 0.50 K/mcL LAB HEMETOLOGY METHOD 07/02/2024 12:21 PM [facility] Basophils Absolute 0.05 0.00 - 0.20 K/mcL LAB HEMETOLOGY METHOD 07/02/2024 12:21 PM [facility] Immature Granulocytes Absolute 0.35(H) 0.00 - 0.03 K/mcL LAB HEMETOLOGY METHOD 07/02/2024 12:21 PM [facility] Blood Venous blood specimen / Unknown Venipuncture / Unknown 07/02/2024 5:25 AM EST 07/02/2024 11:38 AM EST us John Durán MD LAB BLOOD ORDERABLES Final R esult [facility] [address] [place] [address], from Last 3 Months Insurance [place] Care Teams Door Manager Relationship Specialty Start Date End Date John Durán MD [address] [place] [address] PCP - General Family Medicine 03/18/24
--- OUTSIDE RECORDS SUMMARY | 2024-09-18 13:45 | XMS_ITS | Encounter Summary ---
Author Organization [facility] Address [address] [place] [address] Care Team Providers Care Tie Binder Name Role Phone John Durán MD Primary Care Provider [phone] Encounter Details Date Type Department Care Team (Late st Contact Info) Description 05/02/2024 Lab Requisition [facility] [address] [place] [address] John Durán MD [address] [place] [address] Orthostatic hypotension Social History Tobacco Use Types Packs/Day Years [...] Associated Diagnosis Comments COMPLETE BLOOD COUNT Routine 05/02/2024 5:42 AM EST Orthostatic hypotension BASIC METABOLIC PANEL Routine 05/02/2024 5:42 AM EST Orthostatic hypotension documented in this encounter Results * Basic metabolic panel (05/02/2024 5:42 AM EST) Sodium 141 133 - 145 mmol/L LAB CHEMISTRY METHOD 05/02/2024 12:49 PM EST [facility] Potassium 3.9 3.5 - 5.5 mmol/L LAB CHEMISTRY METHOD 05/02/2024 12:49 PM EST [facility] Chloride 106 96 - 110 mmol/L LAB CHEMISTRY METHOD 05/02/2024 12:49 PM EST [facility] CO2 28 21 - 32 mmol/L LAB CHEMISTRY METHOD 05/02/2024 12:49 PM [facility] Anion Gap 7 3 - 11 LAB CHEMISTRY METHOD 05/02/2024 12:49 PM [facility] Glucose 76 70 - 100 mg/dL LAB CHEMISTRY METHOD 05/02/2024 12:49 PM [facility] BUN 19 5 - 25 mg/dL LAB CHEMISTRY METHOD 05/02/2024 12:49 PM [facility] Creatinine 0.92 0.70 - 1.30 mg/dL LAB CHEMISTRY METHOD 05/02/2024 12:49 PM [facility] eGFR 91 >=60 mL/min/1. 73m2 LAB CHEMISTRY METHOD 05/02/2024 12:49 PM [facility] Comment:Calculation based on the??Chronic Kidney Disease Epidemiology Collaboration (CKD-EPI) equation refit??without adjustment for race. BUN/Creatinine Ratio 20.7 LAB CHEMISTRY METHOD 05/02/2024 12:49 PM [facility] Calcium 8.7 8.5 - 10.5 mg/dL LAB CHEMISTRY METHOD 05/02/2024 12:49 PM [facility] Blood Venous blood specimen / Unknown Venipuncture / Unknown 05/02/2024 5:42 AM EST 05/02/2024 11:19 AM EST John Durán MD LAB BLOOD ORDERABLES Final R esult [facility] [address] [place] [address], * (ABNORMAL) Complete blood count (05/02/2024 5:42 AM EST) WBC 9.9 4.8 - 10.8 K/mcL LAB HEMETOLOGY METHOD 05/02/2024 12:25 PM [facility] RBC 4.80 4.50 - 5.50 M/mcL LAB HEMETOLOGY METHOD 05/02/2024 12:25 PM [facility] Hemoglobin 12.9(L) 13.5 - 17.5 g/dL LAB HEMETOLOGY METHOD 05/02/2024 12:25 PM [facility] Hematocrit 41.4(L) 42.0 - 54.0 % LAB HEMETOLOGY METHOD 05/02/2024 12:25 PM [facility] MCV 86.1 79.0 - 98.0 FL LAB HEMETOLOGY METHOD 05/02/2024 12:25 PM [facility] MCH 26.8(L) 27.0 - 32.0 pcg LAB HEMETOLOGY METHOD 05/02/2024 12:25 PM [facility] MCHC 31.2(L) 32.0 - 37.0 g/dL LAB HEMETOLOGY METHOD 05/02/2024 12:25 PM [facility] RDW 15.7(H) 11.0 - 15.0 % LAB HEMETOLOGY METHOD 05/02/2024 12:25 PM [facility] Platelets 260 130 - 400 K/[facility] LAB HEMETOLOGY METHOD 05/02/2024 12:25 PM [facility] MPV 10.1 7.0 - 11.0 FL LAB HEMETOLOGY METHOD 05/02/2024 12:25 PM [facility] NRBC 0.0 <1.0 % LAB HEMETOLOGY METHOD 05/02/2024 12:25 PM [facility] NRBC Absolute 0.00 <0.10 K/mcL LAB HEMETOLOGY METHOD 05/02/2024 12:25 PM [facility] Blood Venous blood specimen / Unknown Venipuncture / Unknown 05/02/2024 5:42 AM EST 05/02/2024 11:19 AM EST us John Durán MD LAB BLOOD ORDERABLES Final R esult [facility] [address] [place] [address], documented in this encounter Visit Diagnoses Diagnosis Orthostatic hypotension documented in this encounter Care Teams Tie Binder Relationship Specialty Start Date End Date John Durán MD [address] [place] [address] PCP - General Family Medicine 03/18/24 documented as of this encounter
--- OUTSIDE RECORDS SUMMARY | 2024-09-18 13:45 | XMS_ITS | Encounter Summary ---
Author Organization [employer] Address [address] [place] [address] Care Team Providers Care Middle School Math Teacher Name Role Phone Jhon Durán MD Primary Care Provider [phone] Encounter Details Date Type Department Care Team (Latest Contact Info) Description 03/15/[address] [facility] - Main Lab [address] [place] [address] John Durán MD [facility] [place] [address] Schizoaffective disorder, unspecified (CMS/HCC V24, CMS/HCC V28) Social History Tobacco [...] Procedure Name Priority Date/Time Associated Diagnosis Comments CBC WITH AUTO DIFFERENTIAL Routine 03/15/2024 9:07 AM EST Schizoaffective disorder, unspecified (CMS/HCC) CBC AND DIFFERENTIAL Routine 03/15/2024 9:07 AM EST Schizoaffective disorder, unspecified (CMS/HCC) documented in this encounter Results * (ABNORMAL) CBC auto differential (03/15/2024 9:07 AM EST) WBC 8.4 4.8 - 10.8 K/[facility] LAB HEMETOLOGY METHOD 03/15/2024 11:17 AM EST [facility] LAB RBC 4.60 4.50 - 5.50 M/[facility] LAB HEMETOLOGY METHOD 03/15/2024 11:17 AM [facility] LAB Hemoglobin 12.5(L) 13.5 - 17.5 g/dL LAB HEMETOLOGY METHOD 03/15/2024 11:17 AM [facility] LAB Hematocrit 39.5(L) 42.0 - 54.0 % LAB HEMETOLOGY METHOD 03/15/2024 11:17 AM [facility] LAB MCV 85.5 79.0 - 98.0 FL LAB HEMETOLOGY METHOD 03/15/2024 11:17 AM [facility] LAB MCH 27.1 27.0 - 32.0 pcg LAB HEMETOLOGY METHOD 03/15/2024 11:17 AM [facility] LAB MCHC 31.6(L) 32.0 - 37.0 g/dL LAB HEMETOLOGY METHOD 03/15/2024 11:17 AM [facility] LAB RDW 14.7 11.0 - 15.0 % LAB HEMETOLOGY METHOD 03/15/2024 11:17 AM [facility] LAB Platelets 250 130 - 400 K/mcL LAB HEMETOLOGY METHOD 03/15/2024 11:17 AM [facility] LAB MPV 10.0 7.0 - 11.0 FL LAB HEMETOLOGY METHOD 03/15/2024 11:17 AM [facility] LAB NRBC 0.0 <1.0 % LAB HEMETOLOGY METHOD 03/15/2024 11:17 AM [facility] LAB NRBC Absolute 0.00 <0.10 K/mcL LAB HEMETOLOGY METHOD 03/15/2024 11:17 AM [facility] LAB Neutrophils Relative 65.0 % LAB HEMETOLOGY METHOD 03/15/2024 11:17 AM [facility] LAB Lymphocytes Relative 23.0 % LAB HEMETOLOGY METHOD 03/15/2024 11:17 AM [facility] LAB Monocytes Relative 8.0 % LAB HEMETOLOGY METHOD 03/15/2024 11:17 AM [facility] LAB Eosinophils Relative 2.5 % LAB HEMETOLOGY METHOD 03/15/2024 11:17 AM [facility] LAB Basophils Relative 0.5 % LAB HEMETOLOGY METHOD 03/15/2024 11:17 AM [facility] LAB Immature Granulocytes Relative 1.0 % LAB HEMETOLOGY METHOD 03/15/2024 11:17 AM EST [facility] LAB Neutrophils Absolute 5.46 1.50 - 7.00 K/mcL LAB HEMETOLOGY METHOD 03/15/2024 11:17 AM [facility] LAB Lymphocytes Absolute 1.93 1.00 - 5.00 K/mcL LAB HEMETOLOGY METHOD 03/15/2024 11:17 AM [facility] LAB Monocytes Absolute 0.67 0.20 - 1.00 K/mcL LAB HEMETOLOGY METHOD 03/15/2024 11:17 AM EST [facility] LAB Eosinophils Absolute 0.21 0.00 - 0.50 K/mcL LAB HEMETOLOGY METHOD 03/15/2024 11:17 AM [facility] LAB Basophils Absolute 0.04 0.00 - 0.20 K/mcL LAB HEMETOLOGY METHOD 03/15/2024 11:17 AM [facility] LAB Immature Granulocytes Absolute 0.08(H) 0.00 - 0.03 K/mcL LAB HEMETOLOGY METHOD 03/15/2024 11:17 AM [facility] LAB Blood Venous blood specimen / Unknown Venipuncture / Unknown 03/15/2024 9:07 AM EST 03/15/2024 10:51 AM EST us John Durán MD LAB BLOOD ORDERABLES Final R esult [facility] LAB [address] [place] [address], documented in this encounter Visit Diagnoses Diagnosis Schizoaffective disorder, unspecified ([facility] V24, [facility] V28) documented in this encounter Care Teams Middle School Math Teacher Relationship Specialty Start Date End Date John Durán MD [address] [place] [address] PCP - General Family Medicine 03/18/24 documented as of this encounter
--- OUTSIDE RECORDS SUMMARY | 2024-09-18 13:45 | XMS_ITS | Encounter Summary ---
Author Organization [employer] Address [address] [place] [address] Care Team Providers Care Latrine Cleaner Name Role Phone John Durán MD Primary Care Provider [phone] Encounter Details Date Type Department Care Team (Late st Contact Info) Description 09/09/2024 Lab Requisition [facility] Lab [address] [place] [address] John Durán MD [address] [place] [address] Hypo-osmolality and hyponatremia; Anemia, unspecified Social History [...] Associated Diagnosis Comments COMPLETE BLOOD COUNT Routine 09/10/2024 5:48 AM EDT Hypo-osmolality and hyponatremia Anemia, unspecified BASIC METABOLIC PANEL Routine 09/10/2024 5:48 AM EDT Hypo-osmolality and hyponatremia Anemia, unspecified documented in this encounter Results * (ABNORMAL) Basic metabolic panel (09/10/2024 5:48 AM EDT) Sodium 141 133 - 145 mmol/L LAB CHEMISTRY METHOD 09/10/2024 11:07 AM EDT [facility] LAB Potassium 4.1 3.5 - 5.5 mmol/L LAB CHEMISTRY METHOD 09/10/2024 11:07 AM EDT [facility] LAB Chloride 107 96 - 110 mmol/L LAB CHEMISTRY METHOD 09/10/2024 11:07 AM [facility] LAB CO2 25 21 - 32 mmol/L LAB CHEMISTRY METHOD 09/10/2024 11:07 AM [facility] LAB Anion Gap 9 3 - 11 LAB CHEMISTRY METHOD 09/10/2024 11:07 AM [facility] LAB Glucose 89 70 - 100 mg/dL LAB CHEMISTRY METHOD 09/10/2024 11:07 AM [facility] LAB BUN 19 5 - 25 mg/dL LAB CHEMISTRY METHOD 09/10/2024 11:07 AM [facility] LAB Creatinine 1.48(H) 0.70 - 1.30 mg/dL LAB CHEMISTRY METHOD 09/10/2024 11:07 AM [facility] LAB eGFR 51(L) >=60 mL/min/1. 73m2 LAB CHEMISTRY METHOD 09/10/2024 11:07 AM [facility] LAB Comment:Calculation based on the??Chronic Kidney Disease Epidemiology Collaboration (CKD-EPI) equation refit??without adjustment for race. BUN/Creatinine Ratio 12.8 LAB CHEMISTRY METHOD 09/10/2024 11:07 AM [facility] LAB Calcium 8.3(L) 8.5 - 10.5 mg/dL LAB CHEMISTRY METHOD 09/10/2024 11:07 AM [facility] LAB Blood Venous blood specimen / Unknown Venipuncture / Unknown 09/10/2024 5:48 AM EDT 09/10/2024 9:05 AM EDT us John Durán MD LAB BLOOD ORDERABLES Final R esult [facility] LAB [address] [place] [address], * (ABNORMAL) Complete blood count (09/10/2024 5:48 AM EDT) WBC 7.8 4.8 - 10.8 K/mcL LAB HEMETOLOGY METHOD 09/10/2024 10:18 AM [facility] LAB RBC 2.80(L) 4.50 - 5.50 M/mcL LAB HEMETOLOGY METHOD 09/10/2024 10:18 AM [facility] LAB Hemoglobin 7.1(L) 13.5 - 17.5 g/dL LAB HEMETOLOGY METHOD 09/10/2024 10:18 AM [facility] LAB Hematocrit 23.2(L) 42.0 - 54.0 % LAB HEMETOLOGY METHOD 09/10/2024 10:18 AM [facility] LAB MCV 82.6 79.0 - 98.0 FL LAB HEMETOLOGY METHOD 09/10/2024 10:18 AM [facility] LAB MCH 25.3(L) 27.0 - 32.0 pcg LAB HEMETOLOGY METHOD 09/10/2024 10:18 AM [facility] LAB MCHC 30.6(L) 32.0 - 37.0 g/dL LAB HEMETOLOGY METHOD 09/10/2024 10:18 AM [facility] LAB RDW 16.1(H) 11.0 - 15.0 % LAB HEMETOLOGY METHOD 09/10/2024 10:18 AM [facility] LAB Platelets 357 130 - 400 K/mcL LAB HEMETOLOGY METHOD 09/10/2024 10:18 AM [facility] LAB MPV 9.7 7.0 - 11.0 FL LAB HEMETOLOGY METHOD 09/10/2024 10:18 AM [facility] LAB NRBC 0.0 <1.0 % LAB HEMETOLOGY METHOD 09/10/2024 10:18 AM [facility] LAB NRBC Absolute 0.00 <0.10 K/mcL LAB HEMETOLOGY METHOD 09/10/2024 10:18 AM EDT [facility] LAB Blood Venous blood specimen / Unknown Venipuncture / Unknown 09/10/2024 5:48 AM EDT 09/10/2024 9:05 AM EDT John Durán MD LAB BLOOD ORDERABLES Final R esult [facility] LAB [address] [place] [address], documented in this encounter Visit Diagnoses Diagnosis Hypo-osmolality and hyponatremia Anemia, unspecified documented in this encounter Care Teams Latrine Cleaner Relationship Specialty Start Date End Date John Durán MD [address] [place] [address] PCP - General Family Medicine 03/18/24 documented as of this encounter
--- OUTSIDE RECORDS SUMMARY | 2024-09-18 13:45 | XMS_ITS | Encounter Summary ---
Author Organization [employer] Address [address] [place] [address] Care Team Providers Care Refinery Operator Assistant Name Role Phone Jhon Durán MD Primary Care Provider Encounter Details Date Type Department Care Team (Late st Contact Info) Description 09/17/2024 Lab Requisition [facility] - Main Lab [address] [facility] [place] [address] John Durán MD [address] [place] [address] Hypo-osmolality and hyponatremia; Anemia, unspecified Social History [...] unspecified documented in this encounter Care Teams Refinery Operator Assistant Relationship Specialty Start Date End Date John Durán MD [address] [place] [address] PCP - General Family Medicine 03/18/24 documented as of this encounter
--- OUTSIDE RECORDS SUMMARY | 2024-09-18 13:45 | XMS_ITS | Encounter Summary ---
Author Organization [employer] Address [address] [place] [address] Care Team Providers Care Hatch Supervisor Name Role Phone John Durán MD Primary Care Provider [phone] Encounter Details Date Type Department Care Team (Late st Contact Info) Description 06/07/2024 Lab Requisition [facility] - Main Lab [address] [facility] [place] [address] John Durán MD [address] [place] [address] Hematuria, unspecified Social History Tobacco Use Types Packs/Day [...] Associated Diagnosis Comments COMPLETE BLOOD COUNT Routine 06/07/2024 6:30 AM EST Hematuria, unspecified BASIC METABOLIC PANEL Routine 06/07/2024 6:30 AM EST Hematuria, unspecified documented in this encounter Results * (ABNORMAL) Basic metabolic panel (06/07/2024 6:30 AM EST) Sodium 139 133 - 145 mmol/L LAB CHEMISTRY METHOD 06/07/2024 11:23 AM EST [facility] LAB Potassium 4.3 3.5 - 5.5 mmol/L LAB CHEMISTRY METHOD 06/07/2024 11:23 AM EST [facility] LAB Chloride 105 96 - 110 mmol/L LAB CHEMISTRY METHOD 06/07/2024 11:23 AM EST [facility] LAB CO2 28 21 - 32 mmol/L LAB CHEMISTRY METHOD 06/07/2024 11:23 AM [facility] LAB Anion Gap 6 3 - 11 LAB CHEMISTRY METHOD 06/07/2024 11:23 AM [facility] LAB Glucose 102(H) 70 - 100 mg/dL LAB CHEMISTRY METHOD 06/07/2024 11:23 AM [facility] LAB BUN 15 5 - 25 mg/dL LAB CHEMISTRY METHOD 06/07/2024 11:23 AM [facility] LAB Creatinine 0.90 0.70 - 1.30 mg/dL LAB CHEMISTRY METHOD 06/07/2024 11:23 AM [facility] LAB eGFR 93 >=60 mL/min/1. 73m2 LAB CHEMISTRY METHOD 06/07/2024 11:23 AM [facility] LAB Comment:Calculation based on the??Chronic Kidney Disease Epidemiology Collaboration (CKD-EPI) equation refit??without adjustment for race. BUN/Creatinine Ratio 16.7 LAB CHEMISTRY METHOD 06/07/2024 11:23 AM [facility] LAB Calcium 8.9 8.5 - 10.5 mg/dL LAB CHEMISTRY METHOD 06/07/2024 11:23 AM [facility] LAB Blood Venous blood specimen / Unknown Venipuncture / Unknown 06/07/2024 6:30 AM EST 06/07/2024 9:01 AM EST us John Durán MD LAB BLOOD ORDERABLES Final R esult [facility] LAB [address] [place] [address], * (ABNORMAL) Complete blood count (06/07/2024 6:30 AM EST) WBC 10.3 4.8 - 10.8 K/mcL LAB HEMETOLOGY METHOD 06/07/2024 10:44 AM [facility] LAB RBC 4.60 4.50 - 5.50 M/mcL LAB HEMETOLOGY METHOD 06/07/2024 10:44 AM [facility] LAB Hemoglobin 12.4(L) 13.5 - 17.5 g/dL LAB HEMETOLOGY METHOD 06/07/2024 10:44 AM [facility] LAB Hematocrit 38.8(L) 42.0 - 54.0 % LAB HEMETOLOGY METHOD 06/07/2024 10:44 AM [facility] LAB MCV 83.8 79.0 - 98.0 FL LAB HEMETOLOGY METHOD 06/07/2024 10:44 AM [facility] LAB MCH 26.8(L) 27.0 - 32.0 pcg LAB HEMETOLOGY METHOD 06/07/2024 10:44 AM [facility] LAB MCHC 32.0 32.0 - 37.0 g/dL LAB HEMETOLOGY METHOD 06/07/2024 10:44 AM [facility] LAB RDW 15.6(H) 11.0 - 15.0 % LAB HEMETOLOGY METHOD 06/07/2024 10:44 AM [facility] LAB Platelets 283 130 - 400 K/mcL LAB HEMETOLOGY METHOD 06/07/2024 10:44 AM [facility] LAB MPV 9.6 7.0 - 11.0 FL LAB HEMETOLOGY METHOD 06/07/2024 10:44 AM [facility] LAB NRBC 0.0 <1.0 % LAB HEMETOLOGY METHOD 06/07/2024 10:44 AM [facility] LAB NRBC Absolute 0.00 <0.10 K/mcL LAB HEMETOLOGY METHOD 06/07/2024 10:44 AM [facility] LAB Blood Venous blood specimen / Unknown Venipuncture / Unknown 06/07/2024 6:30 AM EST 06/07/2024 9:01 AM EST us John Durán MD LAB BLOOD ORDERABLES Final R esult [facility] LAB [address] [place] [address], documented in this encounter Visit Diagnoses Diagnosis Hematuria, unspecified documented in this encounter Care Teams Hatch Supervisor Relationship Specialty Start Date End Date John Durán MD [address] [place] [address] PCP - General Family Medicine 03/18/24 documented as of this encounter
--- OUTSIDE RECORDS SUMMARY | 2024-09-18 13:45 | XMS_ITS | Encounter Summary ---
Author Organization [facility] Address [address] [place] [address] Care Team Providers Care Irish Moss Gatherer Name Role Phone John Durán MD Primary Care Provider [phone] Encounter Details Date Type Department Care Team (Late st Contact Info) Description 04/30/2024 Lab Requisition [facility] - Main Lab [address] [facility] [place] [address] John Durán MD [address] [place] [address] Unspecified infectious disease Social History Tobacco Use Types Packs/Day Years [...] Associated Diagnosis Comments COMPLETE BLOOD COUNT Routine 04/30/2024 5:39 AM EST Unspecified infectious disease BASIC METABOLIC PANEL Routine 04/30/2024 5:39 AM EST Unspecified infectious disease documented in this encounter Results * Basic metabolic panel (04/30/2024 5:39 AM EST) Sodium 141 133 - 145 mmol/L LAB CHEMISTRY METHOD 04/30/2024 12:08 PM EST [facility] LAB Potassium 4.0 3.5 - 5.5 mmol/L LAB CHEMISTRY METHOD 04/30/2024 12:08 PM EST [facility] LAB Chloride 105 96 - 110 mmol/L LAB CHEMISTRY METHOD 04/30/2024 12:08 PM EST [facility] LAB CO2 30 21 - 32 mmol/L LAB CHEMISTRY METHOD 04/30/2024 12:08 PM [facility] LAB Anion Gap 6 3 - 11 LAB CHEMISTRY METHOD 04/30/2024 12:08 PM [facility] LAB Glucose 89 70 - 100 mg/dL LAB CHEMISTRY METHOD 04/30/2024 12:08 PM [facility] LAB BUN 20 5 - 25 mg/dL LAB CHEMISTRY METHOD 04/30/2024 12:08 PM [facility] LAB Creatinine 0.83 0.70 - 1.30 mg/dL LAB CHEMISTRY METHOD 04/30/2024 12:08 PM [facility] LAB eGFR 95 >=60 mL/min/1. 73m2 LAB CHEMISTRY METHOD 04/30/2024 12:08 PM [facility] LAB Comment:Calculation based on the??Chronic Kidney Disease Epidemiology Collaboration (CKD-EPI) equation refit??without adjustment for race. BUN/Creatinine Ratio 24.1 LAB CHEMISTRY METHOD 04/30/2024 12:08 PM [facility] LAB Calcium 9.0 8.5 - 10.5 mg/dL LAB CHEMISTRY METHOD 04/30/2024 12:08 PM [facility] LAB Blood Venous blood specimen / Unknown Venipuncture / Unknown 04/30/2024 5:39 AM EST 04/30/2024 10:43 AM EST us John Durán MD LAB BLOOD ORDERABLES Final R esult [facility] LAB [address] [place] [address], * (ABNORMAL) Complete blood count (04/30/2024 5:39 AM EST) WBC 9.0 4.8 - 10.8 K/mcL LAB HEMETOLOGY METHOD 04/30/2024 11:35 AM EST [facility] LAB RBC 4.70 4.50 - 5.50 M/mcL LAB HEMETOLOGY METHOD 04/30/2024 11:35 AM [facility] LAB Hemoglobin 12.4(L) 13.5 - 17.5 g/dL LAB HEMETOLOGY METHOD 04/30/2024 11:35 AM [facility] LAB Hematocrit 40.2(L) 42.0 - 54.0 % LAB HEMETOLOGY METHOD 04/30/2024 11:35 AM [facility] LAB MCV 86.1 79.0 - 98.0 FL LAB HEMETOLOGY METHOD 04/30/2024 11:35 AM [facility] LAB MCH 26.6(L) 27.0 - 32.0 pcg LAB HEMETOLOGY METHOD 04/30/2024 11:35 AM [facility] LAB MCHC 30.8(L) 32.0 - 37.0 g/dL LAB HEMETOLOGY METHOD 04/30/2024 11:35 AM [facility] LAB RDW 15.6(H) 11.0 - 15.0 % LAB HEMETOLOGY METHOD 04/30/2024 11:35 AM [facility] LAB Platelets 250 130 - 400 K/mcL LAB HEMETOLOGY METHOD 04/30/2024 11:35 AM [facility] LAB MPV 9.9 7.0 - 11.0 FL LAB HEMETOLOGY METHOD 04/30/2024 11:35 AM [facility] LAB NRBC 0.0 <1.0 % LAB HEMETOLOGY METHOD 04/30/2024 11:35 AM [facility] LAB NRBC Absolute 0.00 <0.10 K/mcL LAB HEMETOLOGY METHOD 04/30/2024 11:35 AM [facility] LAB Blood Venous blood specimen / Unknown Venipuncture / Unknown 04/30/2024 5:39 AM EST 04/30/2024 10:43 AM EST John Durán MD LAB BLOOD ORDERABLES Final R esult [facility] H[facility] LAB [address] [place] [address], documented in this encounter Visit Diagnoses Diagnosis Unspecified infectious disease documented in this encounter Care Teams Irish Moss Gatherer Relationship Specialty Start Date End Date John Durán MD [address] [place] [address] PCP - General Family Medicine 03/18/24 documented as of this encounter
--- OUTSIDE RECORDS SUMMARY | 2024-09-18 13:45 | XMS_ITS | Encounter Summary ---
Author Organization [employer] Address [address] [place] [address] Care Team Providers Care Forest Economist Name Role Phone John Durán MD Primary Care Provider [phone] Encounter Details Date Type Department Care Team (Late st Contact Info) Description 05/18/2024 Lab Requisition [facility] - Main Lab [address] [facility] [place] [address] John Durán MD [address] [place] [address] Fatty (change of) liver, not elsewhere classified; Hematuria, unspecified; Adult failure to thrive; Weakness Social History Tobacco Use Types Packs/Day Years [...] Procedure Name Priority Date/Time Associated Diagnosis Comments PROSTATE SPECIFIC ANTIGEN SCREEN Routine 05/20/2024 5:18 AM EST Fatty (change of) liver, not elsewhere classified Hematuria, unspecified Adult failure to thrive Weakness IRON AND TIBC Routine 05/20/2024 5:18 AM EST Fatty (change of) liver, not elsewhere classified Hematuria, unspecified Adult failure to thrive Weakness COMPLETE BLOOD COUNT Routine 05/20/2024 5:18 AM EST Fatty (change of) liver, not elsewhere classified Hematuria, unspecified Adult failure to thrive Weakness FOLATE Routine 05/20/2024 5:18 AM EST Fatty (change of) liver, not elsewhere classified Hematuria, unspecified Adult failure to thrive Weakness FERRITIN Routine 05/20/2024 5:18 AM EST Fatty (change of) liver, not elsewhere classified Hematuria, unspecified Adult failure to thrive Weakness VITAMIN B12 Routine 05/20/2024 5:18 AM EST Fatty (change of) liver, not elsewhere classified Hematuria, unspecified Adult failure to thrive Weakness COMPREHENSIVE METABOLIC PANEL Routine 05/20/2024 5:18 AM EST Fatty (change of) liver, not elsewhere classified Hematuria, unspecified Adult failure to thrive Weakness documented in this encounter Results * (ABNORMAL) Ferritin (05/20/2024 5:18 AM EST) Ferritin 13(L) 26 - 388 ng/mL LAB CHEMISTRY METHOD 05/20/2024 11:45 AM EST [facility] Blood Venous blood specimen / Unknown Venipuncture / Unknown 05/20/2024 5:18 AM EST 05/20/2024 10:54 AM EST us John Durán MD LAB BLOOD ORDERABLES Final R esult [facility] [address] [place] [address], * (ABNORMAL) Iron and TIBC (05/20/2024 5:18 AM EST) Iron 46(L) 50 - 160 mcg/dL LAB CHEMISTRY METHOD 05/20/2024 12:08 PM EST [facility] TIBC 302 250 - 450 mcg/dL LAB CHEMISTRY METHOD 05/20/2024 12:08 PM EST [facility] Iron Saturation 15(L) 20 - 50 % LAB CHEMISTRY METHOD 05/20/2024 12:08 PM EST [facility] Blood Venous blood specimen / Unknown Venipuncture / Unknown 05/20/2024 5:18 AM EST 05/20/2024 10:54 AM EST John Durán MD LAB BLOOD ORDERABLES Final R esult Performing Organization Address City/[facility]/ZIP Co de Phone Number [facility] [address] [place] [address], [place] [phone] * Folate (05/20/2024 5:18 AM EST) Folate 9.6 2.8 - 17.0 ng/ml LAB CHEMISTRY METHOD 05/20/2024 12:08 PM EST [facility] Blood Venous blood specimen / Unknown Venipuncture / Unknown 05/20/2024 5:18 AM EST 05/20/2024 10:54 AM EST John Durán MD LAB BLOOD ORDERABLES Final R esult Performing Organization Address [facility] de Phone Number [facility] [address] [place] [address], [place] [phone] * Vitamin B12 (05/20/2024 5:18 AM EST) Pathologist [facility] Vitamin B-12 580 250 - 900 pcg/mL LAB CHEMISTRY METHOD 05/20/2024 12:08 PM EST [facility] Blood Venous blood specimen / Unknown Venipuncture / Unknown 05/20/2024 5:18 AM EST 05/20/2024 10:54 AM EST John Durán MD LAB BLOOD ORDERABLES Final R esult Performing Organization Address City/[facility]/ZIP Co de Phone Number [facility] [address] [place] [address], [place] [phone] * Prostate specific antigen screen (05/20/2024 5:18 AM EST) PSA 0.76 0.00 - 4.00 ng/mL LAB CHEMISTRY METHOD 05/20/2024 6:02 PM EST [facility] Blood Venous blood specimen / Unknown Venipuncture / Unknown 05/20/2024 5:18 AM EST 05/20/2024 10:54 AM EST [facility] - 05/20/2024 6:02 PM EST The Siemens Advia Centaur Chemiluminescent Immunoassay is used. Results obtained with different assay methods or kits cannot be used interchangeably. Results cannot be interpreted as absolute evidence of the presence or absence of malignant disease. us John Durán MD LAB BLOOD ORDERABLES Final R esult [facility] [address] [place] [address], * (ABNORMAL) Comprehensive metabolic panel (05/20/2024 5:18 AM EST) Sodium 140 133 - 145 mmol/L LAB CHEMISTRY METHOD 05/20/2024 11:45 AM [facility] Potassium 4.2 3.5 - 5.5 mmol/L LAB CHEMISTRY METHOD 05/20/2024 11:45 AM [facility] Chloride 106 96 - 110 mmol/L LAB CHEMISTRY METHOD 05/20/2024 11:45 AM [facility] CO2 26 21 - 32 mmol/L LAB CHEMISTRY METHOD 05/20/2024 11:45 AM [facility] Anion Gap 8 3 - 11 LAB CHEMISTRY METHOD 05/20/2024 11:45 AM [facility] Glucose 88 70 - 100 mg/dL LAB CHEMISTRY METHOD 05/20/2024 11:45 AM [facility] BUN 13 5 - 25 mg/dL LAB CHEMISTRY METHOD 05/20/2024 11:45 AM [facility] Creatinine 0.82 0.70 - 1.30 mg/dL LAB CHEMISTRY METHOD 05/20/2024 11:45 AM [facility] eGFR 96 >=60 mL/min/1. 73m2 LAB CHEMISTRY METHOD 05/20/2024 11:45 AM [facility] Comment:Calculation based on the??Chronic Kidney Disease Epidemiology Collaboration (CKD-EPI) equation refit??without adjustment for race. BUN/Creatinine Ratio 15.9 LAB CHEMISTRY METHOD 05/20/2024 11:45 AM [facility] Calcium 8.3(L) 8.5 - 10.5 mg/dL LAB CHEMISTRY METHOD 05/20/2024 11:45 AM [facility] AST (SGOT) 7(L) 10 - 42 unit/L LAB CHEMISTRY METHOD 05/20/2024 11:45 AM [facility] ALT (SGPT) 11 10 - 60 unit/L LAB CHEMISTRY METHOD 05/20/2024 11:45 AM [facility] Alkaline Phosphatase 65 42 - 121 unit/L LAB CHEMISTRY METHOD 05/20/2024 11:45 AM [facility] Total Protein 5.4(L) 6.0 - 8.0 g/dL LAB CHEMISTRY METHOD 05/20/2024 11:45 AM [facility] Albumin 2.7(L) 3.2 - 5.0 g/dL LAB CHEMISTRY METHOD 05/20/2024 11:45 AM [facility] Total Bilirubin 0.3 0.0 - 1.4 mg/dL LAB CHEMISTRY METHOD 05/20/2024 11:45 AM [facility] Blood Venous blood specimen / Unknown Venipuncture / Unknown 05/20/2024 5:18 AM EST 05/20/2024 10:54 AM EST John Durán MD LAB BLOOD ORDERABLES Final R esult [facility] [address] [place] [address], * (ABNORMAL) Complete blood count (05/20/2024 5:18 AM EST) [facility] WBC 10.0 4.8 - 10.8 K/mcL LAB HEMETOLOGY METHOD 05/20/2024 11:17 AM [facility] RBC 4.80 4.50 - 5.50 M/mcL LAB HEMETOLOGY METHOD 05/20/2024 11:17 AM [facility] Hemoglobin 12.7(L) 13.5 - 17.5 g/dL LAB HEMETOLOGY METHOD 05/20/2024 11:17 AM [facility] Hematocrit 41.0(L) 42.0 - 54.0 % LAB HEMETOLOGY METHOD 05/20/2024 11:17 AM [facility] MCV 86.1 79.0 - 98.0 FL LAB HEMETOLOGY METHOD 05/20/2024 11:17 AM [facility] MCH 26.7(L) 27.0 - 32.0 pcg LAB HEMETOLOGY METHOD 05/20/2024 11:17 AM [facility] MCHC 31.0(L) 32.0 - 37.0 g/dL LAB HEMETOLOGY METHOD 05/20/2024 11:17 AM [facility] RDW 15.3(H) 11.0 - 15.0 % LAB HEMETOLOGY METHOD 05/20/2024 11:17 AM [facility] Platelets 258 130 - 400 K/[facility] LAB HEMETOLOGY METHOD 05/20/2024 11:17 AM [facility] MPV 10.2 7.0 - 11.0 FL LAB HEMETOLOGY METHOD 05/20/2024 11:17 AM [facility] NRBC 0.0 <1.0 % LAB HEMETOLOGY METHOD 05/20/2024 11:17 AM [facility] NRBC Absolute 0.00 <0.10 K/mcL LAB HEMETOLOGY METHOD 05/20/2024 11:17 AM EST [facility] Blood Venous blood specimen / Unknown Venipuncture / Unknown 05/20/2024 5:18 AM EST 05/20/2024 10:51 AM EST John Durán MD LAB BLOOD ORDERABLES Final R esult [facility] [address] [place] [address], documented in this encounter Visit Diagnoses Diagnosis Fatty (change of) liver, not elsewhere classified Hematuria, unspecified Adult failure to thrive Weakness Other malaise and fatigue documented in this encounter Care Teams Forest Economist Relationship Specialty Start Date End Date John Durán MD [address] [place] [address] PCP - General Family Medicine 03/18/24 documented as of this encounter
--- OUTSIDE RECORDS SUMMARY | 2024-09-18 13:45 | XMS_ITS | Encounter Summary ---
Author Organization [employer] Address [address] [place] [address] Care Team Providers Care Longshore Equipment Operator Name Role Phone John Durán MD Primary Care Provider [phone] Encounter Details Date Type Department Care Team (Late st Contact Info) Description 08/26/2024 Lab Requisition [facility] [address] [place] [address] John Durán MD [address] [place] [address] Anemia, unspecified; Hypo-osmolality and hyponatremia Social History Tobacco Use Types Packs/Day Years [...] Associated Diagnosis Comments COMPLETE BLOOD COUNT Routine 08/27/2024 5:16 AM EDT Anemia, unspecified Hypo-osmolality and hyponatremia BASIC METABOLIC PANEL Routine 08/27/2024 5:16 AM EDT Anemia, unspecified Hypo-osmolality and hyponatremia documented in this encounter Results * (ABNORMAL) Basic metabolic panel (08/27/2024 5:16 AM EDT) Sodium 138 133 - 145 mmol/L LAB CHEMISTRY METHOD 08/27/2024 10:30 AM EDT [facility] Potassium 4.4 3.5 - 5.5 mmol/L LAB CHEMISTRY METHOD 08/27/2024 10:30 AM EDT [facility] Chloride 104 96 - 110 mmol/L LAB CHEMISTRY METHOD 08/27/2024 10:30 AM [facility] CO2 27 21 - 32 mmol/L LAB CHEMISTRY METHOD 08/27/2024 10:30 AM [facility] Anion Gap 7 3 - 11 LAB CHEMISTRY METHOD 08/27/2024 10:30 AM [facility] Glucose 106(H) 70 - 100 mg/dL LAB CHEMISTRY METHOD 08/27/2024 10:30 AM [facility] BUN 20 5 - 25 mg/dL LAB CHEMISTRY METHOD 08/27/2024 10:30 AM [facility] Creatinine 1.44(H) 0.70 - 1.30 mg/dL LAB CHEMISTRY METHOD 08/27/2024 10:30 AM [facility] eGFR 53(L) >=60 mL/min/1. 73m2 LAB CHEMISTRY METHOD 08/27/2024 10:30 AM [facility] Comment:Calculation based on the??Chronic Kidney Disease Epidemiology Collaboration (CKD-EPI) equation refit??without adjustment for race. BUN/Creatinine Ratio 13.9 LAB CHEMISTRY METHOD 08/27/2024 10:30 AM [facility] Calcium 8.1(L) 8.5 - 10.5 mg/dL LAB CHEMISTRY METHOD 08/27/2024 10:30 AM [facility] Blood Venous blood specimen / Unknown Venipuncture / Unknown 08/27/2024 5:16 AM EDT 08/27/2024 9:32 AM EDT us John Durán MD LAB BLOOD ORDERABLES Final R esult [facility] [address] [place] [address], * (ABNORMAL) Complete blood count (08/27/2024 5:16 AM EDT) WBC 15.6(H) 4.8 - 10.8 K/mcL LAB HEMETOLOGY METHOD 08/27/2024 10:10 AM [facility] RBC 3.70(L) 4.50 - 5.50 M/mcL LAB HEMETOLOGY METHOD 08/27/2024 10:10 AM [facility] Hemoglobin 9.3(L) 13.5 - 17.5 g/dL LAB HEMETOLOGY METHOD 08/27/2024 10:10 AM [facility] Hematocrit 30.4(L) 42.0 - 54.0 % LAB HEMETOLOGY METHOD 08/27/2024 10:10 AM [facility] MCV 81.7 79.0 - 98.0 FL LAB HEMETOLOGY METHOD 08/27/2024 10:10 AM [facility] MCH 25.0(L) 27.0 - 32.0 pcg LAB HEMETOLOGY METHOD 08/27/2024 10:10 AM [facility] MCHC 30.6(L) 32.0 - 37.0 g/dL LAB HEMETOLOGY METHOD 08/27/2024 10:10 AM [facility] RDW 15.6(H) 11.0 - 15.0 % LAB HEMETOLOGY METHOD 08/27/2024 10:10 AM [facility] Platelets 359 130 - 400 K/mcL LAB HEMETOLOGY METHOD 08/27/2024 10:10 AM [facility] MPV 9.4 7.0 - 11.0 FL LAB HEMETOLOGY METHOD 08/27/2024 10:10 AM [facility] NRBC 0.0 <1.0 % LAB HEMETOLOGY METHOD 08/27/2024 10:10 AM [facility] NRBC Absolute 0.00 <0.10 K/mcL LAB HEMETOLOGY METHOD 08/27/2024 10:10 AM EDT [facility] Blood Venous blood specimen / Unknown Venipuncture / Unknown 08/27/2024 5:16 AM EDT 08/27/2024 9:32 AM EDT us John Durán MD LAB BLOOD ORDERABLES Final R esult [facility] [address] [place] [address], documented in this encounter Visit Diagnoses Diagnosis Anemia, unspecified Hypo-osmolality and hyponatremia documented in this encounter Care Teams Longshore Equipment Operator Relationship Specialty Start Date End Date John Durán MD [address] [place] [address] PCP - General Family Medicine 03/18/24 documented as of this encounter
--- OUTSIDE RECORDS SUMMARY | 2024-09-18 13:45 | XMS_ITS | Encounter Summary ---
Author Organization [employer] Address [address] [place] [address] Care Team Providers Care Tire Stripper Name Role Phone John Durán MD Primary Care Provider Encounter Details Date Type Department Care Team (Latest Contact Info) Description 08/22/2024 Lab Requisition [facility] - Main Lab [address] [facility] [place] [address] John Durán MD [address] [place] [address] Anemia, unspecified; Type 2 diabetes mellitus without complications (CMS/[facility] V24, CMS/[facility] V28) Social History Tobacco Use Types Packs/Day Years Used Date Smoking Tobacco: Never Assessed Sex and Gender Information Value Date Recorded Sex Assigned at Not on file Legal Sex Male 8:13 PM EST Gender Identity Not on file Sexual Orientation Not on file documented as of this encounter Plan of Treatment Not on file documented as of this encounter Visit Diagnoses Diagnosis Anemia, unspecified Type 2 diabetes mellitus without complications (CMS/HCC V24, CMS/[facility] V28) documented in this encounter Care Teams Tire Stripper Relationship Specialty Start Date End Date John Durán MD [address] [place] [address] PCP - General Family Medicine 03/18/24 documented as of this encounter
--- OUTSIDE RECORDS SUMMARY | 2024-09-18 13:45 | XMS_ITS | Encounter Summary ---
Author Organization [employer] Address [address] [place] [address] Care Team Providers Care Valve Repairer Reclamation Name Role Phone John Durán MD Primary Care Provider Encounter Details Date Type Department Care Team (Latest Contact Info) Description 06/29/2024 Lab Requisition [facility] - Main Lab [address] [facility] [place] [address] John Durán MD [address] [place] [address] Schizoaffective disorder, unspecified (CMS/HCC V24, CMS/[facility] V28) Social History Tobacco Use Types Packs/Day Years Used Date Smoking Tobacco: Never Assessed Sex and Gender Information Value Date Recorded Sex Assigned at Not on file Legal Sex Male 8:13 PM EST Gender Identity Not on file Sexual Orientation Not on file documented as of this encounter Plan of Treatment Not on file documented as of this encounter Visit Diagnoses Diagnosis Schizoaffective disorder, unspecified (CMS/HCC V24, CMS/[facility] V28) documented in this encounter Care Teams Valve Repairer Reclamation Relationship Specialty Start Date End Date John Durán MD [address] [place] [address] PCP - General Family Medicine 03/18/24 documented as of this encounter
--- OUTSIDE RECORDS SUMMARY | 2024-09-18 13:45 | XMS_ITS | Encounter Summary ---
Author Organization [employer] Address [address] [place] [address] Care Team Providers Care Heat Treating Operator Name Role Phone John Durán MD Primary Care Provider [phone] Encounter Details Date Type Department Care Team (Latest Contact Info) Description 07/02/2024 Lab Requisition [facility] - Main Lab [address] [place] [address] John Durán MD [facility] [place] [address] Schizoaffective disorder, unspecified (CMS/HCC V24, [...] Diagnosis Comments CBC WITH AUTO DIFFERENTIAL Routine 07/02/2024 5:25 AM EST Schizoaffective disorder, unspecified (CMS/HCC) CBC AND DIFFERENTIAL Routine 07/02/2024 5:25 AM EST Schizoaffective disorder, unspecified (CMS/HCC) documented in this encounter Results * (ABNORMAL) CBC auto differential (07/02/2024 5:25 AM EST) WBC 9.2 4.8 - 10.8 K/[facility] LAB HEMETOLOGY METHOD 07/02/2024 12:21 PM EST [facility] RBC 3.60(L) 4.50 - 5.50 M/[facility] LAB HEMETOLOGY METHOD 07/02/2024 12:21 PM [facility] Hemoglobin 9.5(L) 13.5 - 17.5 g/dL LAB HEMETOLOGY METHOD 07/02/2024 12:21 PM [facility] Hematocrit 32.0(L) 42.0 - 54.0 % LAB HEMETOLOGY METHOD 07/02/2024 12:21 PM [facility] MCV 89.6 79.0 - 98.0 FL LAB HEMETOLOGY METHOD 07/02/2024 12:21 PM [facility] MCH 26.6(L) 27.0 - 32.0 pcg LAB HEMETOLOGY METHOD 07/02/2024 12:21 PM [facility] MCHC 29.7(L) 32.0 - 37.0 g/dL LAB HEMETOLOGY METHOD 07/02/2024 12:21 PM [facility] RDW 16.3(H) 11.0 - 15.0 % LAB HEMETOLOGY METHOD 07/02/2024 12:21 PM [facility] Platelets 284 130 - 400 K/mcL LAB HEMETOLOGY METHOD 07/02/2024 12:21 PM [facility] MPV 9.7 7.0 - 11.0 FL LAB HEMETOLOGY METHOD 07/02/2024 12:21 PM [facility] NRBC 0.0 <1.0 % LAB HEMETOLOGY METHOD 07/02/2024 12:21 PM [facility] NRBC Absolute 0.00 <0.10 K/mcL LAB HEMETOLOGY METHOD 07/02/2024 12:21 PM [facility] Neutrophils Relative 54.9 % LAB HEMETOLOGY METHOD 07/02/2024 12:21 PM [facility] Lymphocytes Relative 27.1 % LAB HEMETOLOGY METHOD 07/02/2024 12:21 PM [facility] Monocytes Relative 12.0 % LAB HEMETOLOGY METHOD 07/02/2024 12:21 PM [facility] Eosinophils Relative 1.7 % LAB HEMETOLOGY METHOD 07/02/2024 12:21 PM [facility] Basophils Relative 0.5 % LAB HEMETOLOGY METHOD 07/02/2024 12:21 PM [facility] Immature Granulocytes Relative 3.8 % LAB HEMETOLOGY METHOD 07/02/2024 12:21 PM [facility] Neutrophils Absolute 5.07 1.50 - 7.00 K/mcL LAB HEMETOLOGY METHOD 07/02/2024 12:21 PM [facility] Lymphocytes Absolute 2.50 1.00 - 5.00 K/mcL LAB HEMETOLOGY METHOD 07/02/2024 12:21 PM [facility] Monocytes Absolute 1.11(H) 0.20 - 1.00 K/mcL LAB HEMETOLOGY METHOD 07/02/2024 12:21 PM [facility] Eosinophils Absolute 0.16 0.00 - 0.50 K/mcL LAB HEMETOLOGY METHOD 07/02/2024 12:21 PM [facility] Basophils Absolute 0.05 0.00 - 0.20 K/mcL LAB HEMETOLOGY METHOD 07/02/2024 12:21 PM [facility] Immature Granulocytes Absolute 0.35(H) 0.00 - 0.03 K/mcL LAB HEMETOLOGY METHOD 07/02/2024 12:21 PM [facility] Blood Venous blood specimen / Unknown Venipuncture / Unknown 07/02/2024 5:25 AM EST 07/02/2024 11:38 AM EST us John Durán MD LAB BLOOD ORDERABLES Final R esult [facility] [address] [place], [place] [address] [phone] documented in this encounter Visit Diagnoses Diagnosis Schizoaffective disorder, unspecified (CMS/[facility] V24, CMS/[facility] V28) documented in this encounter Care Teams Heat Treating Operator Relationship Specialty Start Date End Date John Durán MD [address] [place] [address] PCP - General Family Medicine 03/18/24 documented as of this encounter
--- OUTSIDE RECORDS SUMMARY | 2024-09-18 13:45 | XMS_ITS | Encounter Summary ---
Author Organization [employer] Address [address] [place] [address] Care Team Providers Care Health Occupations Teacher Name Role Phone John Durán MD Primary Care Provider [phone] Encounter Details Date Type Department Care Team (Late st Contact Info) Description 06/06/2024 Lab Requisition [facility] - Main Lab [address] [place] [address] John Durán MD [address] [place] [address] Hematuria, unspecified Social History Tobacco [...] Procedure Name Priority Date/Time Associated Diagnosis Comments URINALYSIS WITH REFLEX MICROSCOPIC Routine 06/06/2024 7:15 AM EST Hematuria, unspecified URINALYSIS WITH REFLEX MICROSCOPIC Routine 06/06/2024 7:15 AM EST Hematuria, unspecified CULTURE URINE Routine 06/06/2024 7:15 AM EST Hematuria, unspecified documented in this encounter Results * (ABNORMAL) Urinalysis with reflex microscopic (06/06/2024 7:15 AM EST) Specific [place] Urine >=1.030 1.003 - 1.030 LAB URINALYSIS - AUTOMATED METHOD 06/06/2024 10:44 AM EST [facility] pH, Urine 6.0 5.0 - 8.0 pH LAB URINALYSIS - AUTOMATED METHOD 06/06/2024 10:44 AM [facility] Leukocytes, Urine Trace(A) Negative LAB URINALYSIS - AUTOMATED METHOD 06/06/2024 10:44 AM [facility] Nitrite, Urine Negative Negative LAB URINALYSIS - AUTOMATED METHOD 06/06/2024 10:44 AM [facility] Protein, Urine 100(A) <=Trace mg/dL LAB URINALYSIS - AUTOMATED METHOD 06/06/2024 10:44 AM [facility] Glucose, Urine Negative Negative mg/dL LAB URINALYSIS - AUTOMATED METHOD 06/06/2024 10:44 AM [facility] Ketones, Urine Trace(A) Negative mg/dL LAB URINALYSIS - AUTOMATED METHOD 06/06/2024 10:44 AM [facility] Urobilinogen, Urine 0.2 0.2 - 1.0 mg/dL LAB URINALYSIS - AUTOMATED METHOD 06/06/2024 10:44 AM [facility] Bilirubin, Urine Small(A) Negative LAB URINALYSIS - AUTOMATED METHOD 06/06/2024 10:44 AM [facility] Blood, Urine Large(A) Negative LAB URINALYSIS - AUTOMATED METHOD 06/06/2024 10:44 AM [facility] RBC, Urine >100(H) 0 - 4 /HPF 06/06/2024 10:44 AM [facility] WBC, Urine 50(H) 0 - 4 /HPF 06/06/2024 10:44 AM [facility] Squamous Epithelial, Urine 5 0 - 60 /LPF 06/06/2024 10:44 AM [facility] Bacteria, Urine Few(A) Negative /HPF 06/06/2024 10:44 AM [facility] Urine Urine specimen obtained by clean catch procedure / Unknown Non-blood Collection / Unknown 06/06/2024 7:15 AM EST 06/06/2024 9:39 AM EST us John Durán MD LAB URINE ORDERABLES Final R esult [facility] [address] [place] [address], [place] [phone] * (ABNORMAL) Culture urine (06/06/2024 7:15 AM EST) Culture, Urine >100,000 CFU/mL Morganella morganii ssp morganii(A) IRAM 06/09/2024 11:21 AM EST [facility] Comment: This is an edited result. Previous organism was Gram negative bacilli on 06/08/2024 at 1118 EST. Culture, Urine 10,000-49,000 CFU/mL Escherichia coli(A) IRAM 06/09/2024 11:21 AM EST [facility] Comment: The organism value for this result has been updated. These results have been appended to the previously preliminary verified report. Urine Urine specimen obtained by clean catch procedure / Unknown Non-blood Collection / Unknown 06/06/2024 7:15 AM EST 06/06/2024 9:39 AM EST Narrative [facility] - 06/09/2024 11:21 AM EST Additional colony types present in insignificant amounts. Organism Antibiotic Method Susceptibility Morganella morganii ssp morganii Amoxicillin/Clavulanate IRAM >=32 ug/ml: Resistant Morganella morganii ssp morganii Ampicillin/Sulbactam IRAM 16 ug/ml: Intermediate Morganella morganii ssp morganii Piperacillin/Tazobactam IRAM <=4 ug/ml: Susceptible Morganella morganii ssp morganii Cefoxitin IRAM 8 ug/ml: Susceptible Morganella morganii ssp morganii Meropenem IRAM <=0.25 ug/ml: Susceptible Morganella morganii ssp morganii Amikacin IRAM 4 ug/ml: Susceptible Morganella morganii ssp morganii Ciprofloxacin IRAM <=0.06 ug/ml: Susceptible Morganella morganii ssp morganii Levofloxacin IRAM <=0.12 ug/ml: Susceptible Morganella morganii ssp morganii Nitrofurantoin IRAM 64 ug/ml: Resistant Morganella morganii ssp morganii Trimethoprim/Sulfamethoxazo le IRAM <=20 ug/ml: Susceptible Escherichia coli Amoxicillin/Clavulanate IRAM >=32 ug/ml: Resistant Escherichia coli Ampicillin/Sulbactam IRAM >=32 ug/ml: Resistant Escherichia coli Piperacillin/Tazobactam IRAM 8 ug/ml: Susceptible Escherichia coli Cefazolin (Urine) IRAM >=32 ug/ml: Resistant Escherichia coli Cefoxitin IRAM 16 ug/ml: Intermediate Escherichia coli Ceftazidime IRAM <=0.5 ug/ml: Susceptible Escherichia coli Ceftriaxone IRAM <=0.25 ug/ml: Susceptible Escherichia coli Cefepime IRAM <=0.12 ug/ml: Susceptible Escherichia coli Meropenem IRAM <=0.25 ug/ml: Susceptible Escherichia coli Amikacin IRAM 2 ug/ml: Susceptible Escherichia coli Gentamicin IRAM <=1 ug/ml: Susceptible Escherichia coli Ciprofloxacin IRAM <=0.06 ug/ml: Susceptible Escherichia coli Levofloxacin IRAM <=0.12 ug/ml: Susceptible Escherichia coli Nitrofurantoin IRAM <=16 ug/ml: Susceptible Escherichia coli Trimethoprim/Sulfame thoxazo le IRAM <=20 ug/ml: Susceptible us John Durán MD LAB MICROBIOLOGY - GENERAL O RDERABLES Final Result [facility] ([facility]) [facility] [address] [place] [address], documented in this encounter Visit Diagnoses Diagnosis Hematuria, unspecified documented in this encounter Care Teams Health Occupations Teacher Relationship Specialty Start Date End Date John Durán MD [address] [place] [address] PCP - General Family Medicine 03/18/24 documented as of this encounter
--- OUTSIDE RECORDS SUMMARY | 2024-09-18 13:45 | XMS_ITS | Encounter Summary ---
Author Organization [employer] Address [address] [place] [address] Care Team Providers Care Knitting Machine Fixer Head Name Role Phone John Durán MD Primary Care Provider [phone] Encounter Details Date Type Department Care Team (Late st Contact Info) Description 05/01/2024 Lab Requisition [facility] - Main Lab [address] [facility] [employer] [place] [address] John Durán MD [address] [place] [address] Orthostatic hypotension Social History Tobacco [...] Associated Diagnosis Comments URINALYSIS WITH REFLEX MICROSCOPIC AND CULTURE Routine 04/30/2024 12:00 AM EST Orthostatic hypotension JORGENSEN URINE CULTURE TUBE Routine 04/30/2024 12:00 AM EST Orthostatic hypotension URINALYSIS WITH REFLEX MICROSCOPIC AND CULTURE Routine 04/30/2024 12:00 AM EST Orthostatic hypotension CULTURE URINE Routine 04/30/2024 12:00 AM EST Orthostatic hypotension documented in this encounter Results * (ABNORMAL) Culture urine (04/30/2024 12:00 AM EST) Culture, Urine >100,000 CFU/mL Providencia rettgeri(A) IRAM 05/04/2024 8:27 AM EST [facility] ([facility]) [facility] Comment: This is an edited result. Previous organism was Gram negative bacilli on 05/02/2024 at 0950 EST. Culture, Urine 50,000-100,000 CFU/mL Escherichia coli(A) IRAM 05/04/2024 8:27 AM EST [facility] Comment: The organism value for this result has been updated. These results have been appended to the previously preliminary verified report. This is an edited result. Previous organism was Gram negative bacilli on 05/04/2024 at 0824 EST. Urine Urine specimen obtained by clean catch procedure / Unknown Non-blood Collection / Unknown 04/30/2024 05/01/2024 11:51 AM EST [facility] ([facility] - 05/04/2024 8:27 AM EST Additional colony types present in insignificant amounts. Organism Antibiotic Method Susceptibility Providencia rettgeri Ampicillin/Sulbactam IRAM 4 ug/ml: Susceptible Providencia rettgeri Piperacillin/Tazobactam IRAM <=4 ug/ml: Susceptible Providencia rettgeri Cefoxitin IRAM <=4 ug/ml: Susceptible Providencia rettgeri Ceftazidime IRAM <=0.5 ug/ml: Susceptible Providencia rettgeri Ceftriaxone IRAM <=0.25 ug/ml: Susceptible Providencia rettgeri Cefepime IRAM <=0.12 ug/ml: Susceptible Providencia rettgeri Ciprofloxacin IRAM <=0.06 ug/ml: Susceptible Providencia rettgeri Levofloxacin IRAM <=0.12 ug/ml: Susceptible Providencia rettgeri Nitrofurantoin IRAM <=16 ug/ml: Resistant Providencia rettgeri Trimethoprim/Sulfamethoxazole IRAM <=20 ug/ml: Susceptible Escherichia coli Amoxicillin/Clavulanate IRAM >=32 ug/ml: Resistant Escherichia coli Ampicillin/Sulbactam IRAM >=32 ug/ml: Resistant Escherichia coli Piperacillin/Tazobactam IRAM 8 ug/ml: Susceptible Escherichia coli Cefazolin (Urine) IRAM 2 ug/ml: Susceptible Escherichia coli Cefoxitin IRAM <=4 ug/ml: Susceptible Escherichia coli Ceftazidime IRAM <=0.5 ug/ml: Susceptible Escherichia coli Ceftriaxone IRAM <=0.25 ug/ml: Susceptible Escherichia coli Cefepime IRAM <=0.12 ug/ml: Susceptible Escherichia coli Meropenem IRAM <=0.25 ug/ml: Susceptible Escherichia coli Amikacin IRAM <=1 ug/ml: Susceptible Escherichia coli Gentamicin IRAM >=16 ug/ml: Resistant Escherichia coli Ciprofloxacin IRAM <=0.06 ug/ml: Susceptible Escherichia coli Levofloxacin IRAM <=0.12 ug/ml: Susceptible Escherichia coli Nitrofurantoin IRAM <=16 ug/ml: Susceptible Escherichia coli Trimethoprim/Sulfamethoxazole IRAM >=320 ug/ml: Resistant us John Durán MD LAB MICROBIOLOGY - GENERAL O RDERABLES Final Result [facility] [address] [place] [address], [place] [phone] * (ABNORMAL) Urinalysis with reflex microscopic and culture (04/30/2024 12:00 AM EST) Specific [place] Urine 1.010 1.003 - 1.030 LAB URINALYSIS - AUTOMATED METHOD 05/01/2024 11:51 AM [facility] pH, Urine >=9.0(A) 5.0 - 8.0 pH LAB URINALYSIS - AUTOMATED METHOD 05/01/2024 11:51 AM [facility] Leukocytes, Urine Moderate(A) Negative LAB URINALYSIS - AUTOMATED METHOD 05/01/2024 11:51 AM [facility] Nitrite, Urine Positive(A) Negative LAB URINALYSIS - AUTOMATED METHOD 05/01/2024 11:51 AM [facility] Protein, Urine >=300(A) <=Trace mg/dL LAB URINALYSIS - AUTOMATED METHOD 05/01/2024 11:51 AM [facility] Glucose, Urine Negative Negative mg/dL LAB URINALYSIS - AUTOMATED METHOD 05/01/2024 11:51 AM [facility] Ketones, Urine 15(A) Negative mg/dL LAB URINALYSIS - AUTOMATED METHOD 05/01/2024 11:51 AM [facility] Urobilinogen , Urine 2.0(A) 0.2 - 1.0 mg/dL LAB URINALYSIS - AUTOMATED METHOD 05/01/2024 11:51 AM [facility] Bilirubin, Urine Moderate(A) Negative LAB URINALYSIS - AUTOMATED METHOD 05/01/2024 11:51 AM [facility] Blood, Urine Large(A) Negative LAB URINALYSIS - AUTOMATED METHOD 05/01/2024 11:51 AM [facility] RBC, Urine 30(H) 0 - 4 /HPF 05/01/2024 11:51 AM [facility] WBC, Urine 30(H) 0 - 4 /HPF 05/01/2024 11:51 AM [facility] Squamous Epithelial, Urine 3 0 - 60 /LPF 05/01/2024 11:51 AM [facility] Crystals, Urine Moderate Calcium Phosphate /LPF 05/01/2024 11:51 AM [facility] Bacteria, Urine Moderate(A) Negative /HPF 05/01/2024 11:51 AM [facility] Urine Urine specimen obtained by clean catch procedure / Unknown Non-blood Collection / Unknown 04/30/2024 05/01/2024 10:50 AM EST John Durán MD LAB URINE ORDERABLES Final R esult [facility] [address] [place] [address], * Jorgensen urine culture tube (04/30/2024 12:00 AM EST) Extra Tube Hold for add-ons. 05/01/2024 12:01 PM [facility] Comment:Auto resulted. Urine Urine specimen obtained by clean catch procedure / Unknown Non-blood Collection / Unknown 04/30/2024 05/01/2024 10:50 AM EST us John Durán MD LAB URINE ORDERABLES Final R esult [facility] ([facility]) [facility] [address] [place] [address], documented in this encounter Visit Diagnoses Diagnosis Orthostatic hypotension documented in this encounter Care Teams Knitting Machine Fixer Head Relationship Specialty Start Date End Date John Durán MD [address] [place] [address] PCP - General Family Medicine 03/18/24 documented as of this encounter
--- OUTSIDE RECORDS SUMMARY | 2024-09-18 13:45 | XMS_ITS | Encounter Summary ---
Author Organization [employer] Address [address] [place] [address] Care Team Providers Care Export Traffic Department Manager Name Role Phone John Durán MD Primary Care Provider [phone]- [phone] Encounter Details Date Type Department Care Team (Late st Contact Info) Description 09/17/2024 Lab Requisition [facility] - Main Lab [address] [facility] [place] [address] John Durán MD [address] [place] [address] Anemia, unspecified Social History Tobacco [...] Procedure Name Priority Date/Time Associated Diagnosis Comments VITAMIN B12 AND FOLATE Routine 09/18/2024 6:33 AM EDT Anemia, unspecified IRON AND TIBC Routine 09/18/2024 6:33 AM EDT Anemia, unspecified COMPLETE BLOOD COUNT Routine 09/18/2024 6:33 AM EDT Anemia, unspecified FERRITIN Routine 09/18/2024 6:33 AM EDT Anemia, unspecified BASIC METABOLIC PANEL Routine 09/18/2024 6:33 AM EDT Anemia, unspecified documented in this encounter Results * (ABNORMAL) Basic metabolic panel (09/18/2024 6:33 AM EDT) Sodium 146(H) 133 - 145 mmol/L LAB CHEMISTRY METHOD 09/18/2024 9:04 AM [facility] Potassium 4.5 3.5 - 5.5 mmol/L LAB CHEMISTRY METHOD 09/18/2024 9:04 AM [facility] Chloride 111(H) 96 - 110 mmol/L LAB CHEMISTRY METHOD 09/18/2024 9:04 AM [facility] CO2 29 21 - 32 mmol/L LAB CHEMISTRY METHOD 09/18/2024 9:04 AM [facility] Anion Gap 6 3 - 11 LAB CHEMISTRY METHOD 09/18/2024 9:04 AM [facility] Glucose 91 70 - 100 mg/dL LAB CHEMISTRY METHOD 09/18/2024 9:04 AM [facility] BUN 20 5 - 25 mg/dL LAB CHEMISTRY METHOD 09/18/2024 9:04 AM [facility] Creatinine 1.63(H) 0.70 - 1.30 mg/dL LAB CHEMISTRY METHOD 09/18/2024 9:04 AM [facility] eGFR 45(L) >=60 mL/min/1. 73m2 LAB CHEMISTRY METHOD 09/18/2024 9:04 AM [facility] Comment:Calculation based on the Chronic Kidney Disease Epidemiology Collaboration (CKD-EPI) equation refit without adjustment for race. BUN/Creatinine Ratio 12.3 LAB CHEMISTRY METHOD 09/18/2024 9:04 AM [facility] Calcium 8.4(L) 8.5 - 10.5 mg/dL LAB CHEMISTRY METHOD 09/18/2024 9:04 AM [facility] Blood Venous blood specimen / Unknown Venipuncture / Unknown 09/18/2024 6:33 AM EDT 09/18/2024 8:13 AM EDT us John Durán MD LAB BLOOD ORDERABLES Final R esult [facility] [address] [place] [address], [place] [phone] * Vitamin B12 and folate (09/18/2024 6:33 AM EDT) [facility] Vitamin B-12 421 250 - 900 pcg/mL LAB CHEMISTRY METHOD 09/18/2024 9:27 AM EDT [facility] Folate 9.3 2.8 - 17.0 ng/ml LAB CHEMISTRY METHOD 09/18/2024 9:27 AM EDT [facility] Blood Venous blood specimen / Unknown Venipuncture / Unknown 09/18/2024 6:33 AM EDT 09/18/2024 8:13 AM EDT us John Durán MD LAB BLOOD ORDERABLES Final R esult Performing Organization Address [facility] Co de Phone Number [facility] [address] [place] [address], [place] [phone] * (ABNORMAL) Ferritin (09/18/2024 6:33 AM EDT) [facility] Ferritin 12(L) 26 - 388 ng/mL LAB CHEMISTRY METHOD 09/18/2024 9:27 AM EDT [facility] Blood Venous blood specimen / Unknown Venipuncture / Unknown 09/18/2024 6:33 AM EDT 09/18/2024 8:13 AM EDT us John Durán MD LAB BLOOD ORDERABLES Final R esult Performing Organization Address [facility]/ZIP Co de Phone Number [facility] [address] [place] [address], [place] [phone] * (ABNORMAL) Iron and TIBC (09/18/2024 6:33 AM EDT) [facility] Iron 17(L) 50 - 160 mcg/dL LAB CHEMISTRY METHOD 09/18/2024 9:04 AM EDT [facility] TIBC 263 250 - 450 mcg/dL LAB CHEMISTRY METHOD 09/18/2024 9:04 AM T [facility] Iron Saturation 6(L) 20 - 50 % LAB CHEMISTRY METHOD 09/18/2024 9:04 AM [facility] Blood Venous blood specimen / Unknown Venipuncture / Unknown 09/18/2024 6:33 AM EDT 09/18/2024 8:13 AM EDT us John Durán MD LAB BLOOD ORDERABLES Final R esult [facility] [address] [place] [address], [place] [phone] * (ABNORMAL) Complete blood count (09/18/2024 6:33 AM EDT) WBC 9.7 4.8 - 10.8 K/mcL LAB HEMETOLOGY METHOD 09/18/2024 10:12 AM [facility] RBC 2.50(L) 4.50 - 5.50 M/mcL LAB HEMETOLOGY METHOD 09/18/2024 10:12 AM [facility] Hemoglobin 6.2(LL) 13.5 - 17.5 g/dL LAB HEMETOLOGY METHOD 09/18/2024 10:12 AM [facility] Hematocrit 21.3(L) 42.0 - 54.0 % LAB HEMETOLOGY METHOD 09/18/2024 10:12 AM [facility] MCV 85.8 79.0 - 98.0 FL LAB HEMETOLOGY METHOD 09/18/2024 10:12 AM [facility] MCH 24.9(L) 27.0 - 32.0 pcg LAB HEMETOLOGY METHOD 09/18/2024 10:12 AM [facility] MCHC 29.0(L) 32.0 - 37.0 g/dL LAB HEMETOLOGY METHOD 09/18/2024 10:12 AM EDT [facility] RDW 16.4(H) 11.0 - 15.0 % LAB HEMETOLOGY METHOD 09/18/2024 10:12 AM EDT [facility] Platelets 366 130 - 400 K/mcL LAB HEMETOLOGY METHOD 09/18/2024 10:12 AM EDT [facility] MPV 10.0 7.0 - 11.0 FL LAB HEMETOLOGY METHOD 09/18/2024 10:12 AM EDT [facility] NRBC 0.0 <1.0 % [facility] 09/18/2024 10:12 AM EDT [facility] NRBC Absolute 0.00 <0.10 K/mcL LAB HEMETOLOGY METHOD 09/18/2024 10:12 AM EDT [facility] Blood Venous blood specimen / Unknown Venipuncture / Unknown 09/18/2024 6:33 AM EDT 09/18/2024 8:14 AM EDT us John Durán MD LAB BLOOD ORDERABLES Final R esult [facility] [address] [place] [address], documented in this encounter Visit Diagnoses Diagnosis Anemia, unspecified documented in this encounter Care Teams Export Traffic Department Manager Relationship Specialty Start Date End Date John Durán MD [address] [place] [address] PCP - General Family Medicine 03/18/24 documented as of this encounter
--- OUTSIDE RECORDS SUMMARY | 2024-09-18 13:45 | XMS_ITS | Encounter Summary ---
Author Organization [employer] Address [address] [place] [address] Care Team Providers Care Head Turning Machine Operator Name Role Phone John Durán MD Primary Care Provider [phone]- [phone] Encounter Details Date Type Department Care Team (Latest Contact Info) Description 03/09/2024 Lab Requisition [facility] - Main Lab [address] [place] [address] John Durán MD [place] [address] Schizoaffective disorder, unspecified (CMS/HCC V24, [...] Procedure Name Priority Date/Time Associated Diagnosis Comments TRAVEL PHLEBOTOMY FEE Routine 03/11/2024 7:38 AM EST Schizoaffective disorder, unspecified (CMS/HCC) WHITE BLOOD COUNT Routine 03/11/2024 7:3 8 AM EST Schizoaffective disorder, unspecified (CMS/HCC) documented in this encounter Results * Travel phlebotomy fee (03/11/2024 7:38 AM EST) [facility] TRAVEL PHLEBOTOMY FEE Completed 03/11/2024 11:[address] [facility] ([facility]) [facility] Blood Venous blood specimen / Unknown Venipuncture / Unknown 03/11/2024 7:38 AM EST 03/11/2024 10:51 AM EST John Durán MD LAB BLOOD ORDERABLES Final R esult Performing Organization Address City/[facility]/ZIP Co de Phone Number [facility] [address] [place] [address], [place] [phone] * White blood count (03/11/2024 7:38 AM EST) WBC 9.4 4.8 - 10.8 K/[facility] LAB HEMETOLOGY METHOD 03/11/2024 11:52 AM EST [facility] Blood Venous blood specimen / Unknown Venipuncture / Unknown 03/11/2024 7:38 AM EST 03/11/2024 10:51 AM EST John Durán MD LAB BLOOD ORDERABLES Final R esult Performing Organization Address City/[facility]/ZIP Co de Phone Number [facility] [address] [place] [address], [place] [phone] documented in this encounter Visit Diagnoses Diagnosis Schizoaffective disorder, unspecified (CMS/HCC V24, CMS/HCC V28) documented in this encounter Care Teams Head Turning Machine Operator Relationship Specialty Start Date End Date John Durán MD [address] [place] [address] PCP - General Family Medicine 03/18/24 documented as of this encounter
--- OUTSIDE RECORDS SUMMARY | 2024-09-18 13:45 | XMS_ITS | Encounter Summary ---
Author Organization [employer] Address [address] [place] [address] Care Team Providers Care Home Theater Installer Name Role Phone John Durán MD Primary Care Provider [phone] Encounter Details Date Type Department Care Team (Latest Contact Info) Description 08/28/[address] [facility] - Main Lab [address] [place] [address] John Durán MD [facility] [place] [address] Unspecified hydronephrosis Social History Tobacco Use Types Packs/Day Years [...] Comments WBC COUNT WITH ABSOLUTE NEUTROPHIL Routine 08/28/2024 6:10 AM EDT Unspecified hydronephrosis COMPLETE BLOOD COUNT Routine 08/28/2024 6:10 AM EDT Unspecified hydronephrosis BASIC METABOLIC PANEL Routine 08/28/2024 6:10 AM EDT Unspecified hydronephrosis documented in this encounter Results * (ABNORMAL) Wbc count with absolute neutrophil (08/28/2024 6:10 AM EDT) WBC 14.6(H) 4.8 - 10.8 K/mcL LAB HEMETOLOGY METHOD 08/28/2024 5:05 PM EDT [facility] Neutrophils Absolute 10.32(H) 1.50 - 7.00 K/mcL LAB HEMETOLOGY METHOD 08/28/2024 5:05 PM [facility] Neutrophils Relative 71.1 % LAB HEMETOLOGY METHOD 08/28/2024 5:05 PM [facility] Blood Venous blood specimen / Unknown Venipuncture / Unknown 08/28/2024 6:10 AM EDT 08/28/2024 9:42 AM EDT John Durán MD LAB BLOOD ORDERABLES Final R esult [facility] [address] [place] [address], * (ABNORMAL) Basic metabolic panel (08/28/2024 6:10 AM EDT) Sodium 143 133 - 145 mmol/L LAB CHEMISTRY METHOD 08/28/2024 10:55 AM [facility] Potassium 4.1 3.5 - 5.5 mmol/L LAB CHEMISTRY METHOD 08/28/2024 10:55 AM [facility] Chloride 107 96 - 110 mmol/L LAB CHEMISTRY METHOD 08/28/2024 10:55 AM [facility] CO2 24 21 - 32 mmol/L LAB CHEMISTRY METHOD 08/28/2024 10:55 AM [facility] Anion Gap 12(H) 3 - 11 LAB CHEMISTRY METHOD 08/28/2024 10:55 AM [facility] Glucose 90 70 - 100 mg/dL LAB CHEMISTRY METHOD 08/28/2024 10:55 AM [facility] BUN 18 5 - 25 mg/dL LAB CHEMISTRY METHOD 08/28/2024 10:55 AM [facility] Creatinine 1.47(H) 0.70 - 1.30 mg/dL LAB CHEMISTRY METHOD 08/28/2024 10:55 AM [facility] eGFR 51(L) >=60 mL/min/1. 73m2 LAB CHEMISTRY METHOD 08/28/2024 10:[address] [facility] LAB Comment:Calculation based on the??Chronic Kidney Disease Epidemiology Collaboration (CKD-EPI) equation refit??without adjustment for race. BUN/Creatinine Ratio 12.2 LAB CHEMISTRY METHOD 08/28/2024 10:[address] [facility] Calcium 8.1(L) 8.5 - 10.5 mg/dL LAB CHEMISTRY METHOD 08/28/2024 10:[address] [facility] Blood Venous blood specimen / Unknown Venipuncture / Unknown 08/28/2024 6:10 AM EDT 08/28/2024 9:42 AM EDT John Durán MD LAB BLOOD ORDERABLES Final R esult [facility] [address] [place] [address], * (ABNORMAL) Complete blood count (08/28/2024 6:10 AM EDT) WBC 14.6(H) 4.8 - 10.8 K/mcL LAB HEMETOLOGY METHOD 08/28/2024 10:[address] [facility] RBC 3.60(L) 4.50 - 5.50 M/mcL LAB HEMETOLOGY METHOD 08/28/2024 10:[address] [facility] Hemoglobin 9.1(L) 13.5 - 17.5 g/dL LAB HEMETOLOGY METHOD 08/28/2024 10:[address] [facility] Hematocrit 29.9(L) 42.0 - 54.0 % LAB HEMETOLOGY METHOD 08/28/2024 10:[address] [facility] MCV 82.6 79.0 - 98.0 FL LAB HEMETOLOGY METHOD 08/28/2024 10:[address] [facility] MCH 25.1(L) 27.0 - 32.0 pcg LAB HEMETOLOGY METHOD 08/28/2024 10:[address] [facility] MCHC 30.4(L) 32.0 - 37.0 g/dL LAB HEMETOLOGY METHOD 08/28/2024 10:[address] [facility] RDW 15.9(H) 11.0 - 15.0 % LAB HEMETOLOGY METHOD 08/28/2024 10:[address] [facility] Platelets 378 130 - 400 K/mcL LAB HEMETOLOGY METHOD 08/28/2024 10:[address] [facility] MPV 9.6 7.0 - 11.0 FL LAB HEMETOLOGY METHOD 08/28/2024 10:[address] [facility] NRBC 0.0 <1.0 % LAB HEMETOLOGY METHOD 08/28/2024 10:[address] [facility] NRBC Absolute 0.00 <0.10 K/mcL LAB HEMETOLOGY METHOD 08/28/2024 10:13 AM [facility] Blood Venous blood specimen / Unknown Venipuncture / Unknown 08/28/2024 6:10 AM EDT 08/28/2024 9:42 AM EDT us John Durán MD LAB BLOOD ORDERABLES Final R esult [facility] [address] [place] [address], documented in this encounter Visit Diagnoses Diagnosis Unspecified hydronephrosis documented in this encounter Care Teams Home Theater Installer Relationship Specialty Start Date End Date John Durán MD [address] [place] [address] PCP - General Family Medicine 03/18/24 documented as of this encounter
--- OUTSIDE RECORDS SUMMARY | 2024-09-18 13:45 | XMS_ITS | Encounter Summary ---
Author Organization [employer] Address [address] [place] [address] Care Team Providers Care Mission Worker Name Role Phone John Durán MD Primary Care Provider [phone] Encounter Details Date Type Department Care Team (Latest Contact Info) Description 08/15/2024 Lab Requisition [facility] - Main Lab [address] [place] [address] John Durán MD [facility] [place] [address] Anemia, unspecified; Type 2 diabetes mellitus without complications (CMS/[facility] V24, CMS/[facility] V28) Social History Tobacco Use Types Packs/Day [...] Associated Diagnosis Comments COMPLETE BLOOD COUNT Routine 08/16/2024 5:16 AM EDT Anemia, unspecified Type 2 diabetes mellitus without complications (CMS/HCC V24, CMS/[facility] V28) BASIC METABOLIC PANEL Routine 08/16/2024 5:16 AM EDT Anemia, unspecified Type 2 diabetes mellitus without complications (CMS/HCC V24, CMS/HCC V28) documented in this encounter Results * (ABNORMAL) Basic metabolic panel (08/16/2024 5:16 AM EDT) Sodium 140 133 - 145 mmol/L LAB CHEMISTRY METHOD 08/16/2024 10:01 AM EDT [facility] Potassium 4.7 3.5 - 5.5 mmol/L LAB CHEMISTRY METHOD 08/16/2024 10:01 AM [facility] Chloride 106 96 - 110 mmol/L LAB CHEMISTRY METHOD 08/16/2024 10:01 AM [facility] CO2 26 21 - 32 mmol/L LAB CHEMISTRY METHOD 08/16/2024 10:01 AM [facility] Anion Gap 8 3 - 11 LAB CHEMISTRY METHOD 08/16/2024 10:01 AM [facility] Glucose 115(H) 70 - 100 mg/dL LAB CHEMISTRY METHOD 08/16/2024 10:01 AM [facility] BUN 22 5 - 25 mg/dL LAB CHEMISTRY METHOD 08/16/2024 10:01 AM [facility] Creatinine 1.56(H) 0.70 - 1.30 mg/dL LAB CHEMISTRY METHOD 08/16/2024 10:01 AM [facility] eGFR 48(L) >=60 mL/min/1. 73m2 LAB CHEMISTRY METHOD 08/16/2024 10:01 AM [facility] Comment:Calculation based on the??Chronic Kidney Disease Epidemiology Collaboration (CKD-EPI) equation refit??without adjustment for race. BUN/Creatinine Ratio 14.1 LAB CHEMISTRY METHOD 08/16/2024 10:01 AM [facility] Calcium 8.5 8.5 - 10.5 mg/dL LAB CHEMISTRY METHOD 08/16/2024 10:01 AM [facility] Blood Venous blood specimen / Unknown Venipuncture / Unknown 08/16/2024 5:16 AM EDT 08/16/2024 9:30 AM EDT us John Durán MD LAB BLOOD ORDERABLES Final R esult [facility] [address] [place] [address], * (ABNORMAL) Complete blood count (08/16/2024 5:16 AM EDT) [facility] Signature WBC 12.5(H) 4.8 - 10.8 K/mcL LAB HEMETOLOGY METHOD 08/16/2024 9:52 AM [facility] RBC 4.20(L) 4.50 - 5.50 M/mcL LAB HEMETOLOGY METHOD 08/16/2024 9:52 AM [facility] Hemoglobin 10.7(L) 13.5 - 17.5 g/dL LAB HEMETOLOGY METHOD 08/16/2024 9:52 AM [facility] Hematocrit 35.4(L) 42.0 - 54.0 % LAB HEMETOLOGY METHOD 08/16/2024 9:52 AM [facility] MCV 84.1 79.0 - 98.0 FL LAB HEMETOLOGY METHOD 08/16/2024 9:52 AM [facility] MCH 25.4(L) 27.0 - 32.0 pcg LAB HEMETOLOGY METHOD 08/16/2024 9:52 AM [facility] MCHC 30.2(L) 32.0 - 37.0 g/dL LAB HEMETOLOGY METHOD 08/16/2024 9:52 AM [facility] RDW 15.6(H) 11.0 - 15.0 % LAB HEMETOLOGY METHOD 08/16/2024 9:52 AM [facility] Platelets 369 130 - 400 K/mcL LAB HEMETOLOGY METHOD 08/16/2024 9:52 AM [facility] MPV 9.8 7.0 - 11.0 FL LAB HEMETOLOGY METHOD 08/16/2024 9:52 AM [facility] NRBC 0.0 <1.0 % LAB HEMETOLOGY METHOD 08/16/2024 9:52 AM [facility] NRBC Absolute 0.00 <0.10 K/mcL LAB HEMETOLOGY METHOD 08/16/2024 9:52 AM EDT [facility] Blood Venous blood specimen / Unknown Venipuncture / Unknown 08/16/2024 5:16 AM EDT 08/16/2024 9:30 AM EDT us John Durán MD LAB BLOOD ORDERABLES Final R esult [facility] [address] [place] [address], documented in this encounter Visit Diagnoses Diagnosis Anemia, unspecified Type 2 diabetes mellitus without complications (CMS/HCC V24, CMS/HCC V28) documented in this encounter Care Teams Mission Worker Relationship Specialty Start Date End Date John Durán MD [address] [place] [address] PCP - General Family Medicine 03/18/24 documented as of this encounter
--- OUTSIDE RECORDS SUMMARY | 2024-09-18 13:45 | XMS_ITS | Encounter Summary ---
Author Organization [employer] Address [address] [place] [address] Care Team Providers Care Carpenter Cradle And Dolly Name Role Phone John Durán MD Primary Care Provider Encounter Details Date Type Department Care Team (Late st Contact Info) Description 09/02/2024 Lab Requisition [facility] - Main Lab [address] [facility] [place] [address] John Durán MD [address] [place] [address] Hypo-osmolality and hyponatremia; Anemia, unspecified Social History [...] unspecified documented in this encounter Care Teams Carpenter Cradle And Dolly Relationship Specialty Start Date End Date John Durán MD [address] [place] [address] PCP - General Family Medicine 03/18/24 documented as of this encounter
--- OUTSIDE RECORDS SUMMARY | 2024-09-18 13:46 | XMS_ITS | Encounter Summary ---
Author Organization [employer] Address [address] [place] [address] Care Team Providers Care Guest Services Ambassador Name Role Phone John Durán MD Primary Care Provider [phone] Encounter Details Date Type Department Care Team (Late st Contact Info) Description 05/17/2024 Lab Requisition [facility] - Main Lab [address] [place] [address] John Durán MD [address] [place] [address] Urinary tract infection, site not specified Social History Tobacco Use Types Packs/Day Years [...] URINALYSIS WITH REFLEX MICROSCOPIC AND CULTURE Routine 05/16/2024 9:49 PM EST Urinary tract infection, site not specified JORGENSEN URINE CULTURE TUBE Routine 05/16/2024 9:49 PM EST Urinary tract infection, site not specified URINALYSIS WITH REFLEX MICROSCOPIC AND CULTURE Routine 05/16/2024 9:49 PM EST Urinary tract infection, site not specified CULTURE URINE Routine 05/16/2024 9:49 PM EST Urinary tract infection, site not specified documented in this encounter Results * Culture urine (05/16/2024 9:49 PM EST) Culture, Urine <10,000 cfu/mL Mixed bacterial cody 05/18/2024 10:58 AM [facility] Urine Urine specimen obtained by clean catch procedure / Unknown Non-blood Collection / Unknown 05/16/2024 9:49 PM EST 05/17/2024 11:18 AM EST us John Durán MD LAB MICROBIOLOGY - GENERAL O RDERABLES Final Result [facility] [address] [place] [address], [place] [phone] * (ABNORMAL) Urinalysis with reflex microscopic and culture (05/16/2024 9:49 PM EST) Specific Skippers Urine 1.033(H) 1.003 - 1.030 LAB URINALYSIS - AUTOMATED METHOD 05/17/2024 11:26 AM [facility] pH, Urine 6.0 5.0 - 8.0 pH LAB URINALYSIS - AUTOMATED METHOD 05/17/2024 11:26 AM [facility] Leukocytes, Urine Moderate(A) Negative LAB URINALYSIS - AUTOMATED METHOD 05/17/2024 11:26 AM [facility] Nitrite, Urine Negative Negative LAB URINALYSIS - AUTOMATED METHOD 05/17/2024 11:26 AM [facility] Protein, Urine 300(A) <=Trace mg/dL LAB URINALYSIS - AUTOMATED METHOD 05/17/2024 11:26 AM [facility] Glucose, Urine 100(A) Negative mg/dL LAB URINALYSIS - AUTOMATED METHOD 05/17/2024 11:26 AM [facility] Ketones, Urine Trace(A) Negative mg/dL LAB URINALYSIS - AUTOMATED METHOD 05/17/2024 11:26 AM [facility] Urobilinogen , Urine 1.0 0.2 - 1.0 mg/dL LAB URINALYSIS - AUTOMATED METHOD 05/17/2024 11:26 AM [facility] Bilirubin, Urine Small(A) Negative LAB URINALYSIS - AUTOMATED METHOD 05/17/2024 11:26 AM [facility] Blood, Urine Large(A) Negative LAB URINALYSIS - AUTOMATED METHOD 05/17/2024 11:26 AM [facility] RBC, Urine >4,000(H) 0 - 4 /HPF LAB URINALYSIS - AUTOMATED METHOD 05/17/2024 11:26 AM [facility] WBC, Urine 886.3(H) 0 - 4 /HPF LAB URINALYSIS - AUTOMATED METHOD 05/17/2024 11:26 AM [facility] Squamous Epithelial, Urine 78(H) 0 - 60 /LPF LAB URINALYSIS - AUTOMATED METHOD 05/17/2024 11:26 AM [facility] Non-Squamous Epithelial, Urine Transitional Epithelial Cells 2-5/LPF /LPF LAB URINALYSIS - AUTOMATED METHOD 05/17/2024 11:26 AM [facility] Bacteria, Urine Negative Negative /HPF LAB URINALYSIS - AUTOMATED METHOD 05/17/2024 11:26 AM [facility] Hyaline Casts, Urine 7.1(H) 0 - 3 /LPF LAB URINALYSIS - AUTOMATED METHOD 05/17/2024 11:26 AM [facility] Urine Urine specimen obtained by clean catch procedure / Unknown Non-blood Collection / Unknown 05/16/2024 9:49 PM EST 05/17/2024 9:55 AM EST us John Durán MD LAB URINE ORDERABLES Edited Result - Final [facility] [address] [place] [address], * Jorgensen urine culture tube (05/16/2024 9:49 PM EST) Extra Tube Hold for add-ons. 05/17/2024 11:01 AM EST [facility] Comment:Auto resulted. Urine Urine specimen obtained by clean catch procedure / Unknown Non-blood Collection / Unknown 05/16/2024 9:49 PM EST 05/17/2024 9:55 AM EST us John Durán MD LAB URINE ORDERABLES Final R esult [facility] [address] [place] [address], documented in this encounter Visit Diagnoses Diagnosis Urinary tract infection, site not specified documented in this encounter Care Teams Guest Services Ambassador Relationship Specialty Start Date End Date John Durán MD [address] [place] [address] PCP - General Family Medicine 03/18/24 documented as of this encounter
--- OUTSIDE RECORDS SUMMARY | 2024-09-18 13:46 | XMS_ITS | Encounter Summary ---
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 (CMS/HCC V24, CMS/HCC V28) Social History Tobacco [...] Associated Diagnosis Comments COMPLETE BLOOD COUNT Routine 05/09/2024 5:00 AM EST Type 2 diabetes mellitus with diabetic peripheral angiopathy without gangrene (CMS/HCC) BASIC METABOLIC PANEL Routine 05/09/2024 5:00 AM EST Type 2 diabetes mellitus with diabetic peripheral angiopathy without gangrene (CMS/HCC) documented in this encounter Results * (ABNORMAL) Basic metabolic panel (05/09/2024 5:00 AM EST) Sodium 138 133 - 145 mmol/L LAB CHEMISTRY METHOD 05/09/2024 11:48 AM EST [facility] Potassium 4.4 3.5 - 5.5 mmol/L LAB CHEMISTRY METHOD 05/09/2024 11:48 AM [facility] Chloride 105 96 - 110 mmol/L LAB CHEMISTRY METHOD 05/09/2024 11:48 AM [facility] CO2 27 21 - 32 mmol/L LAB CHEMISTRY METHOD 05/09/2024 11:48 AM [facility] Anion Gap 6 3 - 11 LAB CHEMISTRY METHOD 05/09/2024 11:48 AM [facility] Glucose 85 70 - 100 mg/dL LAB CHEMISTRY METHOD 05/09/2024 11:48 AM [facility] BUN 16 5 - 25 mg/dL LAB CHEMISTRY METHOD 05/09/2024 11:48 AM [facility] Creatinine 0.86 0.70 - 1.30 mg/dL LAB CHEMISTRY METHOD 05/09/2024 11:48 AM [facility] eGFR 94 >=60 mL/min/1. 73m2 LAB CHEMISTRY METHOD 05/09/2024 11:48 AM [facility] Comment:Calculation based on the??Chronic Kidney Disease Epidemiology Collaboration (CKD-EPI) equation refit??without adjustment for race. BUN/Creatinine Ratio 18.6 LAB CHEMISTRY METHOD 05/09/2024 11:48 AM [facility] Calcium 8.3(L) 8.5 - 10.5 mg/dL LAB CHEMISTRY METHOD 05/09/2024 11:48 AM [facility] Blood Venous blood specimen / Unknown Venipuncture / Unknown 05/09/2024 5:00 AM EST 05/09/2024 9:55 AM EST us John Durán MD LAB BLOOD ORDERABLES Final R esult [facility] [address] [place] [address], * (ABNORMAL) Complete blood count (05/09/2024 5:00 AM EST) WBC 9.1 4.8 - 10.8 K/mcL LAB HEMETOLOGY METHOD 05/09/2024 11:01 AM [facility] RBC 4.90 4.50 - 5.50 M/mcL LAB HEMETOLOGY METHOD 05/09/2024 11:01 AM [facility] Hemoglobin 12.8(L) 13.5 - 17.5 g/dL LAB HEMETOLOGY METHOD 05/09/2024 11:01 AM [facility] Hematocrit 41.5(L) 42.0 - 54.0 % LAB HEMETOLOGY METHOD 05/09/2024 11:01 AM [facility] MCV 85.6 79.0 - 98.0 FL LAB HEMETOLOGY METHOD 05/09/2024 11:01 AM [facility] MCH 26.4(L) 27.0 - 32.0 pcg LAB HEMETOLOGY METHOD 05/09/2024 11:01 AM [facility] MCHC 30.8(L) 32.0 - 37.0 g/dL LAB HEMETOLOGY METHOD 05/09/2024 11:01 AM [facility] RDW 15.2(H) 11.0 - 15.0 % LAB HEMETOLOGY METHOD 05/09/2024 11:01 AM [facility] Platelets 261 130 - 400 K/mcL LAB HEMETOLOGY METHOD 05/09/2024 11:01 AM [facility] MPV 10.0 7.0 - 11.0 FL LAB HEMETOLOGY METHOD 05/09/2024 11:01 AM [facility] NRBC 0.0 <1.0 % LAB HEMETOLOGY METHOD 05/09/2024 11:01 AM [facility] NRBC Absolute 0.00 <0.10 K/mcL LAB HEMETOLOGY METHOD 05/09/2024 11:01 AM [facility] Blood Venous blood specimen / Unknown Venipuncture / Unknown 05/09/2024 5:00 AM EST 05/09/2024 9:55 AM EST John Durán MD LAB BLOOD ORDERABLES Final R esult [facility] [address] [place] [address], documented in this encounter Visit Diagnoses Diagnosis Type 2 diabetes mellitus with diabetic peripheral angiopathy without gangrene (CMS/HCC V24, CMS/HCC V28) documented in this encounter Care Teams Campus Security Officer Relationship Specialty Start Date End Date John Durán MD [address] [place] [address] PCP - General Family Medicine 03/18/24 documented as of this encounter
--- OUTSIDE RECORDS SUMMARY | 2024-09-18 13:46 | XMS_ITS | Encounter Summary ---
Author Organization [employer] Address [address] [place] [address] Care Team Providers Care Regional Vice President Life Sales Name Role Phone John Durán MD Primary Care Provider [phone] Encounter Details Date Type Department Care Team (Late st Contact Info) Description 05/13/2024 Lab Requisition [facility] - Main Lab [address] [place] [address] John Durán MD [address] [place] [address] Gross hematuria Social History Tobacco Use Types Packs/Day Years [...] Diagnosis Comments CBC WITH AUTO DIFFERENTIAL Routine 05/13/2024 5:37 AM EST Gross hematuria CBC AND DIFFERENTIAL Routine 05/13/2024 5:37 AM EST Gross hematuria BASIC METABOLIC PANEL Routine 05/13/2024 5:37 AM EST Gross hematuria documented in this encounter Results * (ABNORMAL) CBC auto differential (05/13/2024 5:37 AM EST) WBC 10.2 4.8 - 10.8 K/[facility] LAB HEMETOLOGY METHOD 05/13/2024 11:53 AM EST [facility] RBC 5.00 4.50 - 5.50 M/[facility] LAB HEMETOLOGY METHOD 05/13/2024 11:53 AM EST [facility] Hemoglobin 13.4(L) 13.5 - 17.5 g/dL LAB HEMETOLOGY METHOD 05/13/2024 11:53 AM [facility] Hematocrit 42.2 42.0 - 54.0 % LAB HEMETOLOGY METHOD 05/13/2024 11:53 AM [facility] MCV 83.7 79.0 - 98.0 FL LAB HEMETOLOGY METHOD 05/13/2024 11:53 AM [facility] MCH 26.6(L) 27.0 - 32.0 pcg LAB HEMETOLOGY METHOD 05/13/2024 11:53 AM [facility] MCHC 31.8(L) 32.0 - 37.0 g/dL LAB HEMETOLOGY METHOD 05/13/2024 11:53 AM [facility] RDW 15.4(H) 11.0 - 15.0 % LAB HEMETOLOGY METHOD 05/13/2024 11:53 AM [facility] Platelets 260 130 - 400 K/mcL LAB HEMETOLOGY METHOD 05/13/2024 11:53 AM [facility] MPV 10.2 7.0 - 11.0 FL LAB HEMETOLOGY METHOD 05/13/2024 11:53 AM [facility] NRBC 0.0 <1.0 % LAB HEMETOLOGY METHOD 05/13/2024 11:53 AM [facility] NRBC Absolute 0.00 <0.10 K/mcL LAB HEMETOLOGY METHOD 05/13/2024 11:53 AM [facility] Neutrophils Relative 60.2 % LAB HEMETOLOGY METHOD 05/13/2024 11:53 AM [facility] Lymphocytes Relative 26.5 % LAB HEMETOLOGY METHOD 05/13/2024 11:53 AM [facility] Monocytes Relative 8.8 % LAB HEMETOLOGY METHOD 05/13/2024 11:53 AM [facility] Eosinophils Relative 2.3 % LAB HEMETOLOGY METHOD 05/13/2024 11:53 AM [facility] Basophils Relative 0.7 % LAB HEMETOLOGY METHOD 05/13/2024 11:53 AM [facility] Immature Granulocytes Relative 1.5 % LAB HEMETOLOGY METHOD 05/13/2024 11:53 AM [facility] Neutrophils Absolute 6.13 1.50 - 7.00 K/mcL LAB HEMETOLOGY METHOD 05/13/2024 11:53 AM [facility] Lymphocytes Absolute 2.70 1.00 - 5.00 K/mcL LAB HEMETOLOGY METHOD 05/13/2024 11:53 AM [facility] Monocytes Absolute 0.89 0.20 - 1.00 K/mcL LAB HEMETOLOGY METHOD 05/13/2024 11:53 AM [facility] Eosinophils Absolute 0.23 0.00 - 0.50 K/mcL LAB HEMETOLOGY METHOD 05/13/2024 11:53 AM [facility] Basophils Absolute 0.07 0.00 - 0.20 K/mcL LAB HEMETOLOGY METHOD 05/13/2024 11:53 AM [facility] Immature Granulocytes Absolute 0.15(H) 0.00 - 0.03 K/mcL LAB HEMETOLOGY METHOD 05/13/2024 11:53 AM [facility] Blood Venous blood specimen / Unknown Venipuncture / Unknown 05/13/2024 5:37 AM EST 05/13/2024 10:47 AM EST us John Durán MD LAB BLOOD ORDERABLES Final R esult [facility] [address] [place] [address], * Basic metabolic panel (05/13/2024 5:37 AM EST) Sodium 139 133 - 145 mmol/L LAB CHEMISTRY METHOD 05/13/2024 12:36 PM [facility] Potassium 4.4 3.5 - 5.5 mmol/L LAB CHEMISTRY METHOD 05/13/2024 12:36 PM [facility] Chloride 104 96 - 110 mmol/L LAB CHEMISTRY METHOD 05/13/2024 12:36 PM [facility] CO2 26 21 - 32 mmol/L LAB CHEMISTRY METHOD 05/13/2024 12:36 PM [facility] Anion Gap 9 3 - 11 LAB CHEMISTRY METHOD 05/13/2024 12:36 PM [facility] Glucose 88 70 - 100 mg/dL LAB CHEMISTRY METHOD 05/13/2024 12:36 PM [facility] BUN 16 5 - 25 mg/dL LAB CHEMISTRY METHOD 05/13/2024 12:36 PM [facility] Creatinine 0.80 0.70 - 1.30 mg/dL LAB CHEMISTRY METHOD 05/13/2024 12:36 PM [facility] LAB eGFR 96 >=60 mL/min/1. 73m2 LAB CHEMISTRY METHOD 05/13/2024 12:36 PM [facility] Comment:Calculation based on the??Chronic Kidney Disease Epidemiology Collaboration (CKD-EPI) equation refit??without adjustment for race. BUN/Creatinine Ratio 20.0 LAB CHEMISTRY METHOD 05/13/2024 12:36 PM [facility] Calcium 8.5 8.5 - 10.5 mg/dL LAB CHEMISTRY METHOD 05/13/2024 12:36 PM [facility] Blood Venous blood specimen / Unknown Venipuncture / Unknown 05/13/2024 5:37 AM EST 05/13/2024 10:47 AM EST us John Durán MD LAB BLOOD ORDERABLES Final R esult [facility] [address] [place] [address], documented in this encounter Visit Diagnoses Diagnosis Gross hematuria documented in this encounter Care Teams Regional Vice President Life Sales Relationship Specialty Start Date End Date John Durán MD [address] [place] [address] PCP - General Family Medicine 03/18/24 documented as of this encounter
[2024-09-18 16:15] LABS: MANUAL DIFF FLAG NO
--- NOTE | 2024-09-18 16:25 | PC.NURSE ---
rbc has infused. patient tolerated well w/out any complications. repeat labs sent, awaiting results. dinner tray ordered, awaiting dispo at this time.
[2024-09-18 16:41] LABS: Alanine Aminotransferase < 6 U/L (0-40); Albumin Level 3.2 g/dL (3.5-5.0); Alkaline Phosphatase 59 U/L (39-117); Anion Gap 12 (12-20); Aspartate Amino Transferase 18 U/L (5-37); Bilirubin Total 0.2 mg/dL (0.0-1.0); Blood Urea Nitrogen 20 mg/dL (9-16); Calcium 8.5 mg/dL (8.4-10.2); Carbon Dioxide 28 mmol/L (22-29); Chloride 107 mmol/L (96-108); Creatinine Clr Calc Pharmacy 53.1; Estimated Glomerular Filt Rate 49; Glucose Random 83 mg/dL (60-115); Potassium 4.1 mmol/L (3.3-5.1); Sodium 143 mmol/L (135-145); Total Protein 6.1 g/dL (6.5-8.0)
[2024-09-18 16:42] LABS: Basophils Percent Auto 0.3 % (0-2); Eosinophils Absolute Auto 0.3 X10*3/uL (0.0-0.4); Eosinophils Percent Auto 3.3 % (0-4); Hematocrit 25.5 % (42.0-52.0); Hemoglobin 7.9 g/dl (14.0-18.0); Imm Gran Pct Auto 1.9 % (0.0-0.4); Lymphocytes Absolute Auto 1.8 X10*3/uL (1.2-4.9); Lymphocytes Percent Auto 17.7 % (20-40); Mean Corpuscular Hemoglobin 25.1 pg (27.0-33.0); Mean Platelet Volume 9.2 fL (9.4-12.4); Monocytes Absolute Auto 0.9 X10*3/uL (0.1-1.2); Neutrophils Percent Auto 67.8 % (45-73); Platelet Count 384 X10*3/uL (160-400); Red Blood Count 3.15 X10*6/uL (4.60-5.80); Red Cell Distribution Width 16.6 % (11.0-16.0); White Blood Count 10.4 X10*3/uL (4.8-10.8)
--- NOTE | 2024-09-18 18:35 | PC.NURSE ---
patient ate dinner, requesting additional sandwiches. continues to rest quietly in room w/ call baker within reach. [facility] urinal remains in patient's bed, offered to empty patient states he is still using the urinal.
== END 2024-09-18 19:32 | disposition skilled nursing facility (03) ==
PROVIDERS: Physician Assistant Medical; Emergency Provider Emergency Medicine
DX: D64.9 Anemia, unspecified (principal); C67.9 Malignant neoplasm of bladder, unspecified; R79.89 Other specified abnormal findings of blood chemistry; F22 Delusional disorders; Z79.899 Other long term (current) drug therapy
CPT/HCPCS: 36415; 36430; 80053; 81001; 82947; 85025; 85610; 86850; 86900; 86901; 86923; 87086; 99284; 99285; P9016